=== PATIENT | male | born 1980 | race Caucasian/White ===

== ENCOUNTER 2019-12-10 13:57 | Inpatient (IN) ==
[2019-12-10] MEDS ORDERED: SODIUM CHLORIDE 0.9% 1000ML 1,000 ML IV ONE (14:17)
[2019-12-10] MEDS ORDERED: LORazepam 1 MG/2 ML VIAL IV STA ×2 (14:17→15:57)
--- NOTE | 2019-12-10 14:27 | Emergency Department Note ---
History of Present Illness General Chief Complaint: Seizure Stated Complaint: seizure/fall, forehead abrasion Time Seen by Provider: 12/10/19 14:08 History of Present Illness Provider Complaint: + seizure Description of Episode: + loss of consciousness and + tonic-clonic movement Witnessed: + yes - by bystander Seizure History: + none Place: + work Possible Precipitating Event: + head injury; no fever Associated symptoms: + denies other symptoms and + loss of appetite; no chest pain, no cough, no fever/chills and no shortness of breath HPI Narrative: Patient states he drinks approximately 6 pack of beer a day. He also states he did not eat anything today. He states he did drink a sixpack of beer yesterday. Home Medications Home Medications Medication Instructions Recorded Confirmed Type losartan-hydrochlorothiazide 1 tab PO DAILY 12/10/19 12/10/19 History nortriptyline 75 mg PO HS 12/10/19 12/10/19 History omeprazole 20 mg PO DAILY 12/10/19 12/10/19 History rosuvastatin [Crestor] 10 mg PO DAILY 12/10/19 12/10/19 History Allergies Allergy/AdvReac Type Severity Reaction Status Date / Time No Known Allergies Allergy Unverified 12/10/19 15:32 Past Med/Surg History Medical History (Updated 12/10/19 @ 17:19 by Radha Lopez PA-C) HALEY (generalized anxiety disorder) GERD (gastroesophageal reflux disease) HTN (hypertension) Hyperlipidemia Insomnia Prediabetes Surgical History History of esophagogastroduodenoscopy (EGD) History of rectal surgery Anal fistula surgery Family History Father Diabetes Hypertension Grandmother (Maternal) Myocardial infarction Social History (Updated 12/10/19 @ 17:07 by Radha Lopez PA-C) Smoking Status: Former smoker Do You Dip or Chew Tobacco: No; Tobacco Cessation Education Requested by Patient: No Hx Alcohol Use: Yes Alcohol type: beer Alcohol Intake Frequency Comment: A case of beer per week Hx Substance Use: No Preferred Language: Eritrean Communication Ability: Effective Office Service Coordinator Required: No Beliefs That Will Affect Care: None marital status: Current Living Situation: Spouse current occupational status: employed Other Information That Helps Us Care for You: No Feels Safe at Home: Yes Safety Concerns: Feels Safe At This Time Assistive Devices: None Review of Systems A total of 10 systems reviewed and were otherwise negative Physical Exam Vital Signs: Vital Signs - 24 hr 12/10/19 14:04 12/10/19 14:07 12/10/19 14:16 Temperature 37.2 C Temperature Source Oral Pulse Rate 119 H 119 H 119 H Pulse Rate from Sp O2 Sensor 119 H 119 H Respiratory Rate 22 21 20 Respiratory Effort / Characteristics Non-Labored Sponta neous Respiratory Depth Normal Respiratory Patter n Regular Blood Pressure 150/67 H 150/67 H Blood Pressure Darcy n 107 94 Pulse Oximetry 99 97 99 Oxygen Delivery Me thod Room Air Sepsis Recent Feve r Within 48 Hours No Sepsis New/Unexpla ined Change in Men rupesh Status No Sepsis Action Take n by Nursing No Action Required 12/10/19 14:25 12/10/19 14:30 12/10/19 14:36 Temperature Temperature Source Pulse Rate 119 H 118 H Pulse Rate from Sp O2 Sensor 118 H Respiratory Rate 20 18 Respiratory Effort / Characteristics Respiratory Depth Respiratory Patter n Blood Pressure Blood Pressure Darcy n Pulse Oximetry 99 97 97 Oxygen Delivery Me thod Room Air Room Air Sepsis Recent Feve r Within 48 Hours Sepsis New/Unexpla ined Change in Men rupesh Status Sepsis Action Take n by Nursing 12/10/19 15:00 12/10/19 15:01 12/10/19 16:00 Temperature Temperature Source Pulse Rate 117 H 114 H 113 H Pulse Rate from Sp O2 Sensor 116 H 115 H 114 H Respiratory Rate 20 15 21 Respiratory Effort / Characteristics Respiratory Depth Respiratory Patter n Blood Pressure 152/82 H 149/76 H Blood Pressure Darcy n 105 92 Pulse Oximetry 98 100 99 Oxygen Delivery Me thod Sepsis Recent Feve r Within 48 Hours Sepsis New/Unexpla ined Change in Men rupesh Status Sepsis Action Take n by Nursing Physical Exam: Physical Exam GENERAL: He is oriented to person, place, and time. He appears well-developed and well-nourished. He does not appear distressed. HENT: Exam performed. - Head: Abrasions to the patient's face. - Right Ear: External ear normal. No mastoid tenderness. - Left Ear: External ear normal. No mastoid tenderness. - Mouth/Throat: The oropharynx is clear and moist. No trismus in the jaw. No dental abscesses or uvula swelling. No oropharyngeal exudate or tonsillar abscesses. EYES: Conjunctivae and EOM are normal. Pupils are equal, round, and reactive to light. Right eye exhibits no discharge. Left eye exhibits no discharge. No scleral icterus. NECK: Normal range of motion. Neck supple. No JVD present. No spinous process tenderness present. No carotid bruit present. No rigidity. No tracheal deviation and normal range of motion present. No Brudzinski's sign and no Kernig's sign noted. CV: Tachycardic rate, regular rhythm, normal heart sounds and intact distal pulses. There is no peripheral edema. Palpable radial pulses bue. PULM/CHEST: Effort normal and breath sounds normal. No respiratory distress. No stridor. He has no wheezes. He has no rales. - Chest Wall: He exhibits no tenderness. ABD: The abdomen is soft. Bowel sounds are normal. He has no distension. No mass is present. There is no tenderness. There is no rebound, no guarding, no Elizalde's sign and no tenderness at McBurney's point. Rovsig negative. MUSC/SKEL: Normal range of motion. There is no peripheral edema, tenderness or deformity. LYMPH: No cervical adenopathy. NEURO: He is alert and oriented to person, place, and time. He has normal strength. No cranial nerve deficit or sensory deficit. Coordination and gait normal. GCS eye subscore is 4. GCS verbal subscore is 5. GCS motor subscore is 6. Cerebellar tests wnl. SKIN: Skin is warm and dry. He is diaphoretic. PSYCH: He has a normal mood and affect. Behavior is normal. Judgment and thought content normal. Course Course 1408: The patient was evaluated in room C9. A complete history and physical exam was performed. Patient is diaphoretic and tachycardic on arrival. It is thought that his symptoms could be due to alcohol withdrawal. Labs and imaging will be ordered and the patient will be given 1 mg Ativan in the emergency department to start with. Cardiac monitoring: An order was placed for continuous cardiac monitoring. The monitor shows a rate of 115 with sinus tachycardia rhythm 1602: Vital signs stable. Imaging show no traumatic injury. Magnesium 1.3. Magnesium will replace starting in the emergency department. On reassessment the patient is still tachycardic and is now tremulous. This thought that the patient seizure could be due to his hypomagnesemia and more likely due to alcohol withdrawal. Patient will be given another milligram of Ativan in the emergency department. Discussed with [facility] hospitalist Radha Bernabe who stated to admit to Dr. Dial Administered Medications Chlordiazepoxide HCl (Chlordiazepoxide Hcl 25 Mg Cap) 50 mg PO Q6H MARIOLA; Taper Stop: 12/13/19 19:59 Last Admin: 12/10/19 19:42 Dose: 50 mg Documented by: [id number] Folic Acid (Folic Acid 1 Mg Tab) 1 mg PO QAM MARIOLA Stop: 01/09/20 19:59 Last Admin: 12/10/19 19:42 Dose: 1 mg Documented by: [id number] Potassium Phosphate 30 mmol/ (Sodium Chloride) 510 mls @ 88 mls/hr IV ONE ONE Stop: 12/10/19 23:47 Last Admin: 12/10/19 18:50 Dose: 88 mls/hr Documented by: [id number] Insulin Aspart (Insulin Aspart 100 Units/Ml 3 Ml Pen) 0 units SC ACHS MARIOLA Stop: 01/09/20 20:59 Last Admin: 12/10/19 19:43 Dose: Not Given Documented by: [id number] Cosigned by: [id number] Levetiracetam (Levetiracetam 500 Mg Tab) 500 mg PO Q12H MARIOLA Stop: 01/09/20 19:59 Last Admin: 12/10/19 19:42 Dose: 500 mg Documented by: [id number] Neomycin/Polymyxin/Bacitracin (Neomycin/Polymyx/Bacitr Oint 15 Gm Tube) 1 appln EXT BID MARIOLA Stop: 01/09/20 20:59 Last Admin: 12/10/19 20:51 Dose: 1 appln Documented by: [id number] Nortriptyline HCl (Nortriptyline Hcl 25 Mg Cap) 75 mg PO HS MARIOLA Stop: 01/09/20 20:59 Last Admin: 12/10/19 19:42 Dose: 75 mg Documented by: [id number] Potassium Phosphate (Pot Phosphate Monobasic W/ Sod Tab) 1 tab PO QID MARIOLA Stop: 01/09/20 20:59 Last Admin: 12/10/19 19:42 Dose: 1 tab Documented by: [id number] Thiamine HCl (Thiamine Hcl 100 Mg Tab) 100 mg PO QAM MARIOLA Stop: 01/09/20 19:59 Last Admin: 12/10/19 19:42 Dose: 100 mg Documented by: [id number] Discontinued Medications Diphtheria/Pertussis/Tetanus Vacc (Diphtheria/Tetanus/Pertussis 0.5 Ml Syr/Vial) 0.5 ml IM .ONCE ONE Stop: 12/10/19 16:03 Last Admin: 12/10/19 16:11 Dose: 0.5 ml Documented by: [id number] Sodium Chloride (Nss 1000ml) 1,000 mls @ 999 mls/hr IV .Q1H1M ONE Stop: 12/10/19 15:17 Last Infusion: 12/10/19 15:42 Dose: 0 mls/hr Documented by: [id number] Admin: 12/10/19 14:41 Dose: 999 mls/hr Documented by: [id number] Lorazepam (Ativan) 1 mg in 2 mls @ 2 mls/min IV NOW STA Stop: 12/10/19 14:18 Last Admin: 12/10/19 14:41 Dose: 2 mls/min Documented by: [id number] Magnesium Sulfate/Dextrose (Magnesium Sulfate / D5w) 1 gm in 100 mls @ 100 mls/hr IV Q1H MARIOLA Stop: 12/10/19 16:51 Last Infusion: 12/10/19 19:16 Dose: 0 mls/hr Documented by: [id number] Admin: 12/10/19 16:50 Dose: 100 mls/hr Documented by: [id number] Infusion: 12/10/19 16:46 Dose: 0 mls/hr Documented by: [id number] Admin: 12/10/19 15:42 Dose: 100 mls/hr Documented by: [id number] Lorazepam (Ativan) 1 mg in 2 mls @ 2 mls/min IV NOW STA Stop: 12/10/19 15:58 Last Admin: 12/10/19 16:12 Dose: 2 mls/min Documented by: [id number] Multivitamins 10 ml/ Thiamine HCl 100 mg/ Folic Acid 1 mg/Sodium Chloride 1,011.2 mls @ 500 mls/hr IV .Q2H2M ONE Stop: 12/10/19 18:53 Last Admin: 12/10/19 18:50 Dose: 500 mls/hr Documented by: [id number] Medical Decision Making Laboratory Data Result diagrams: 12/10/19 14:15 12/10/19 14:15 Lab Results 12/10/19 12/10/19 12/10/19 Range/Units 14:15 14:15 14:15 WBC 5.82 (4.8-10.8) K/uL RBC 3.70 L (4.7-6.1) M/uL Hgb 12.6 L (14.0-18.0) g/dL Hct 36.8 L (42-52) % MCV 99.5 (80-100) fL MCH 34.1 H (25-34) pg MCHC 34.2 (32-36) g/dL RDW Std Deviation 49.0 H (36.4-46.3) fL RDW Coeff of Cori 13.6 (11.5-14.5) % Plt Count 134 (130-400) K/uL MPV 10.9 H (7.4-10.4) fL Immature Gran % (Auto) 0.2 % Neut % (Auto) 79.3 % Lymph % (Auto) 8.4 % Dewey % (Auto) 11.3 % Eos % (Auto) 0.5 % Baso % (Auto) 0.3 % Neut # (Auto) 4.61 (1.4-6.5) K/uL Lymph # (Auto) 0.49 L (1.2-3.4) K/uL Dewey # (Auto) 0.66 H (0.11-0.59) K/uL Eos # (Auto) 0.03 (0-0.5) K/uL Baso # (Auto) 0.02 (0-0.2) K/uL Immature Gran # (Auto) 0.01 (0.00-0.02) K/uL Sodium 138 (136-145) mmol/L Potassium 3.7 (3.5-5.1) mmol/L Chloride 101 (98-107) mmol/L Carbon Dioxide 26 (21-32) mmol/L Anion Gap 11.0 (3-11) BUN 6 L (7-18) mg/dl Creatinine 1.07 (0.6-1.4) mg/dl Est Cr Clr Drug Dosing 113.7 ml/min Est GFR ( Amer) 100.8 Est GFR (Non-Af Amer) 87.0 BUN/Creatinine Ratio 5.4 L (10-20) Glucose 249 H (70-99) mg/dl Calcium 9.6 (8.5-10.1) mg/dl Phosphorus (2.5-4.9) mg/dl Magnesium 1.3 L (1.8-2.4) mg/dl Total Bilirubin 0.6 (0.2-1) mg/dl Direct Bilirubin 0.2 (0-0.2) mg/dl AST 267 H (15-37) U/L ALT 227 H (12-78) U/L Alkaline Phosphatase 113 (45-117) U/L Total Creatine Kinase (39-308) U/L Total Protein 8.7 H (6.4-8.2) gm/dl Albumin 4.1 (3.4-5.0) gm/dl Lipase 339 (73-393) U/L Prolactin 13.85 ng/ml Ethyl Alcohol mg/dL (0-3) mg/dl 12/10/19 12/10/19 Range/Units 14:15 14:29 WBC (4.8-10.8) K/uL RBC (4.7-6.1) M/uL Hgb (14.0-18.0) g/dL Hct (42-52) % MCV (80-100) fL MCH (25-34) pg MCHC (32-36) g/dL RDW Std Deviation (36.4-46.3) fL RDW Coeff of Cori (11.5-14.5) % Plt Count (130-400) K/uL MPV (7.4-10.4) fL Immature Gran % (Auto) % Neut % (Auto) % Lymph % (Auto) % Dewey % (Auto) % Eos % (Auto) % Baso % (Auto) % Neut # (Auto) (1.4-6.5) K/uL Lymph # (Auto) (1.2-3.4) K/uL Dewey # (Auto) (0.11-0.59) K/uL Eos # (Auto) (0-0.5) K/uL Baso # (Auto) (0-0.2) K/uL Immature Gran # (Auto) (0.00-0.02) K/uL Sodium (136-145) mmol/L Potassium (3.5-5.1) mmol/L Chloride (98-107) mmol/L Carbon Dioxide (21-32) mmol/L Anion Gap (3-11) BUN (7-18) mg/dl Creatinine (0.6-1.4) mg/dl Est Cr Clr Drug Dosing ml/min Est GFR ( Amer) Est GFR (Non-Af Amer) BUN/Creatinine Ratio (10-20) Glucose (70-99) mg/dl Calcium (8.5-10.1) mg/dl Phosphorus 0.8 L* (2.5-4.9) mg/dl Magnesium (1.8-2.4) mg/dl Total Bilirubin (0.2-1) mg/dl Direct Bilirubin (0-0.2) mg/dl AST (15-37) U/L ALT (12-78) U/L Alkaline Phosphatase (45-117) U/L Total Creatine Kinase 261 (39-308) U/L Total Protein (6.4-8.2) gm/dl Albumin (3.4-5.0) gm/dl Lipase (73-393) U/L Prolactin ng/ml Ethyl Alcohol mg/dL < 3.0 (0-3) mg/dl Imaging Data Radiologist's Impression: CT SCAN OF THE BRAIN WITHOUT IV CONTRAST CLINICAL HISTORY: Seizure. COMPARISON STUDY: No priors. TECHNIQUE: Unenhanced axial CT scan of the brain is performed from the vertex to the skull base. A dose lowering technique was utilized adhering to the principles of ALARA. CT DOSE: 988.73 mGycm FINDINGS: Brain parenchyma: The brain parenchyma is normal in appearance. There is no hemorrhage, mass effect, or evidence of acute territorial ischemia by CT criteria. Rocha-white matter differentiation is preserved. No extra-axial fluid collection is seen. Ventricles, sulci, cisterns: Normal in configuration. Intracranial vasculature: The visualized intracranial vasculature at the skull base is normal in appearance. Calvarium: There is no depressed calvarial fracture. Soft tissues: There is a left frontal scalp hematoma. Sinuses and mastoids: The visualized paranasal sinuses are clear. The mastoid air cells are well pneumatized. Orbits: The bony orbits are grossly intact. IMPRESSION: 1. There is no hemorrhage, mass effect, or evidence of acute territorial ischemia by CT criteria. 2. Left frontal scalp hematoma. 3. No depressed calvarial fracture is identified. ACT 112: Negative or not required by law. Electronically signed by: Gibran Aguirre M.D. 12/10/2019 3:41 PM Dictated: 12/10/197 Transcribed: 12/10/191536 CT DOSE: 542.52 mGycm CLINICAL HISTORY: Facial pain status post trauma SEIZURE COMPARISON STUDY: No previous studies for comparison. TECHNIQUE: Helical images were acquired in the transverse plane. The study was reviewed and analyzed on the independent 3-D workstation. A dose lowering technique was utilized adhering to the principles of ALARA. The pterygoid plates appear intact. The zygomatic arches appear intact. The globes appear intact. There is no evidence of orbital emphysema. The orbital huber and floor appear intact. The mandibular condyles appear intact. There is a minimal nasal bone deformity likely old There is left frontal scalp edema. IMPRESSION: 1. No acute facial fractures identified 2. Left frontal scalp swelling. ACT 112: Negative or not required by law. Electronically signed by: Pj Blake M.D. 12/10/2019 3:40 PM Dictated: 12/10/191536 Transcribed: 12/10/191536 XR chest 1V portable HISTORY: 39 years-old Male seizure acute seizure COMPARISON: None TECHNIQUE: Portable AP view of the chest FINDINGS: Cardiomediastinal and hilar silhouettes are within normal limits. No pneumothorax, pleural effusion, airspace consolidation or overt pulmonary edema. Bones of the chest appear grossly intact. IMPRESSION: No acute process. ACT 112: Negative or not required by law. The above report was generated using voice recognition software. It may contain grammatical, syntax or spelling errors. Electronically signed by: Neville Lala M.D. 12/10/2019 3:00 PM Dictated: 12/10/19 145 Transcribed: 12/10/191458 CT cervical spine wo con CT DOSE: 473.94 mGycm CLINICAL HISTORY: 39 years-old Male with seizure. Acute seizure. COMPARISON: CT head and maxillofacial studies of same day TECHNIQUE: Multiple axial CT images of the cervical spine were obtained without contrast. A dose lowering technique was utilized adhering to the principles of ALARA. FINDINGS: Straightening of the normal cervical lordosis. Mild disc space narrowing with spondylitic spurring at C5-C6. Minimal multilevel facet arthrosis. No acute fracture or subluxation. Lung apices are clear without pneumothorax. No prevertebral soft tissue swelling. Hypodense 4 mm left thyroid nodule. IMPRESSION: No acute fracture or subluxation. ACT 112: Negative or not required by law. The above report was generated using voice recognition software. It may contain grammatical, syntax or spelling errors. Electronically signed by: Neville Lala M.D. 12/10/2019 3:40 PM Dictated: 12/10/191535 Transcribed: 12/10/191535 ECG Data Indication: other (Seizure) Rate (beats per minute): 117 Rhythm: sinus tachycardia Findings: no nonspecific-ST abn and no ST elevation Additional Comments: [place] QRS and QTc intervals within normal limits. [facility] Narrative 1408: The patient was evaluated in room C9. A complete history and physical exam was performed. Patient is diaphoretic and tachycardic on arrival. It is thought that his symptoms could be due to alcohol withdrawal. Labs and imaging will be ordered and the patient will be given 1 mg Ativan in the emergency department to start with. Cardiac monitoring: An order was placed for continuous cardiac monitoring. The monitor shows a rate of 115 with sinus tachycardia rhythm 1602: Vital signs stable. Imaging show no traumatic injury. Magnesium 1.3. Magnesium will replace starting in the emergency department. On reassessment the patient is still tachycardic and is now tremulous. This thought that the patient seizure could be due to his hypomagnesemia and more likely due to al cohol withdrawal. Patient will be given another milligram of Ativan in the emergency department. Discussed with [facility] hospitalist Radha Bernabe who stated to admit to Dr. Dial Impression & Plan Seizure, DTs (delirium tremens), Hypomagnesemia Discharge Plan Visit Data Chief Complaint: Seizure Stated Complaint: seizure/fall, forehead abrasion ED Provider: Duc Kaufman Discharge Problem: Seizure, DTs (delirium tremens), Hypomagnesemia Patient Disposition: Admitted As Inpatient Discharge Instructions Interventions: ED Discharge Assessment Last Done: 12/10/19 18:00
[2019-12-10 14:42] LABS: Albumin Level 4.1 gm/dl (3.4-5.0); BUN Creatinine Ratio 5.4 (10-20); Bilirubin Direct 0.2 mg/dl (0-0.2); Calcium 9.6 mg/dl (8.5-10.1); Creatinine Clr Calc Pharmacy 113.7 ml/min; Est GFR (African American) 100.8; Magnesium 1.3 mg/dl (1.8-2.4); Potassium 3.7 mmol/L (3.5-5.1)
[2019-12-10 14:45] LABS: Basophils # (auto) 0.02 K/uL (0-0.2); Basophils % (auto) 0.3 %; Bilirubin,Total 0.6 mg/dl (0.2-1); Eosinophils # (auto) 0.03 K/uL (0-0.5); Eosinophils % (auto) 0.5 %; Hematocrit (blood only) 36.8 % (42-52); Hemoglobin 12.6 g/dL (14.0-18.0); Immature Granulocytes # (auto) 0.01 K/uL (0.00-0.02); Immature Granulocytes % (auto) 0.2 %; Lymphocytes # (auto) 0.49 K/uL (1.2-3.4); Lymphocytes % (auto) 8.4 %; Mean Corpuscular Hemoglobin 34.1 pg (25-34); Mean Corpuscular Hgb Conc 34.2 g/dL (32-36); Mean Corpuscular Volume 99.5 fL (80-100); Mean Platelet Volume 10.9 fL (7.4-10.4); Monocytes # (auto) 0.66 K/uL (0.11-0.59); Monocytes % (auto) 11.3 %; Neutrophils # (auto) 4.61 K/uL (1.4-6.5); Neutrophils % (auto) 79.3 %; Platelet Count 134 K/uL (130-400); RDW Coefficient of Variation 13.6 % (11.5-14.5); Total Protein 8.7 gm/dl (6.4-8.2); White Blood Count 5.82 K/uL (4.8-10.8)
--- NOTE | 2019-12-10 15:02 | XRay Report ---
XR chest 1V portable HISTORY: 39 years-old Male seizure acute seizure COMPARISON: None TECHNIQUE: Portable AP view of the chest FINDINGS: Cardiomediastinal and hilar silhouettes are within normal limits. No pneumothorax, pleural effusion, airspace consolidation or overt pulmonary edema. Bones of the chest appear grossly intact. IMPRESSION: No acute process. ACT 112: Negative or not required by law. The above report was generated using voice recognition software. It may contain grammatical, syntax o r spelling errors. Electronically signed by: Neville Lala M.D. 12/10/2019 3:00 PM
[2019-12-10] MEDS: MAGNESIUM SULFATE / D5W 1 GM/100 ML BAG IV SCH ×2 (15:42→16:50)
--- NOTE | 2019-12-10 15:42 | CT Scan Report ---
CT facial bones wo con CT DOSE: 542.52 mGycm CLINICAL HISTORY: Facial pain status post trauma SEIZURE COMPARISON STUDY: No previous studies for comparison. TECHNIQUE: Helical images were acquired in the transverse plane. The study was reviewed and analyzed on the independent 3-D workstation. A dose lowering technique was utilized adhering to the principle s of ALARA. The pterygoid plates appear intact. The zygomatic arches appear intact. The globes appear intact. There is no evidence of orbital emphysema. The orbital huber and floor appear intact. The mandibular condyles appear intact. There is a minimal nasal bone deformity likely old There is left frontal scalp edema. IMPRESSION: 1. No acute facial fractures identified 2. Left frontal scalp swelling. ACT 112: Negative or not required by law. Electronically signed by: Pj Blake M.D. 12/10/2019 3:40 PM
--- NOTE | 2019-12-10 15:42 | CT Scan Report ---
CT cervical spine wo con CT DOSE: 473.94 mGycm CLINICAL HISTORY: 39 years-old Male with seizure. Acute seizure. COMPARISON: CT head and maxillofacial studies of same day TECHNIQUE: Multiple axial CT images of the cervical spine were obtained without contrast. A dose low ering technique was utilized adhering to the principles of ALARA. FINDINGS: Straightening of the normal cervical lordosis. Mild disc space narrowing with spondylitic spurring at C5-C6. Minimal multilevel facet arthrosis. No acute fracture or subluxation. Lung apices are clear w ithout pneumothorax. No prevertebral soft tissue swelling. Hypodense 4 mm left thyroid nodule. IMPRESSION: No acute fracture or subluxation. ACT 112: Negative or not required by law. The above report was generated using voice recognition software. It may contain grammatical, syntax o r spelling errors. Electronically signed by: Neville Lala M.D. 12/10/2019 3:40 PM
--- NOTE | 2019-12-10 15:43 | CT Scan Report ---
CT SCAN OF THE BRAIN WITHOUT IV CONTRAST CLINICAL HISTORY: Seizure. COMPARISON STUDY: No priors. TECHNIQUE: Unenhanced axial CT scan of the brain is performed from the vertex to the skull base. A d ose lowering technique was utilized adhering to the principles of ALARA. CT DOSE: 988.73 mGycm FINDINGS: Brain parenchyma: The brain parenchyma is normal in appearance. There is no hemorrhage, mass effect, or evidence of acute territorial ischemia by CT criteria. Rocha-white matter differentiation is preser alejandrina. No extra-axial fluid collection is seen. Ventricles, sulci, cisterns: Normal in configuration. Intracranial vasculature: The visualized intracranial vasculature at the skull base is normal in appe arance. Calvarium: There is no depressed calvarial fracture. Soft tissues: There is a left frontal scalp hematoma. Sinuses and mastoids: The visualized paranasal sinuses are clear. The mastoid air cells are well pneu matized. Orbits: The bony orbits are grossly intact. IMPRESSION: 1. There is no hemorrhage, mass effect, or evidence of acute territorial ischemia by CT criteria. 2. Left frontal scalp hematoma. 3. No depressed calvarial fracture is identified. ACT 112: Negative or not required by law. Electronically signed by: Gibran Aguirre M.D. 12/10/2019 3:41 PM
[2019-12-10] MEDS ORDERED: DIPHTHERIA/TETANUS/PERTUSSIS 0.5 ML SYR/VIAL IM ONE (16:02)
[2019-12-10] MEDS ORDERED: MULTI-VITAMIN INFUSION 10 ML, THIAMINE HCL 100 MG, FOLIC ACID 1 MG in SODIUM CHLORIDE 0... IV ONE (16:52)
--- NOTE | 2019-12-10 16:59 | History & Physical Report ---
Date of Service December 10, 2019 Assessment & Plan (1) Seizure-like activity: This is a 39-year-old male who has significant past medical history of HTN, HLD, GERD, prediabetes who presents to ED after sustaining seizure-like activity prior to arrival. Seizure like activity possibly 2/2 to alcohol withdrawal, electrolyte abnormality or other organic etiology. No prior hx of seizure in past. admit to PCU start keppra 500mg bid obtain EEG consult neurology tx for alcohol withdrawal as below (2) Alcohol withdrawal: encourage alcohol abstinence Give Banana Bag x 1 daily thiamine and folic acid Librum taper, PRN lorazepam for active withdrawal seizure precautions (3) Hypomagnesemia: received 2g mag sulfate in ED repeat mag at 1800 and replete accordingly to achieve mag > 2.0 (4) Elevated LFTs: likely in setting of ETOH use, prior elevated lfts in outpt lab last US abd 04/2017 revealed mild hepatomegaly with diffuse increased echogenicity of liver hold statin, obtain US of abd RUQ (5) Prediabetes: Pt with hyperglycemia, BSG 249 Last A1c 6.2 12/12/2018 Obtain A1c in a.m. Accu-Cheks, NovoLog per protocol Consistently remains greater than 180 BSG add long-acting insulin (6) HTN (hypertension): BP elevated in setting of withdrawal continue losartan but hold HCTZ monitor (7) Hyperlipidemia: hold statin in setting of elevated LFTS Full Code Disposition: admit to PCU Follow up: PCP Dr. Langford upon discharge Pt was seen and examined in collaboration with Dr. Dial, please see addendum History of Present Illness Chief Complaint: Seizure-like activity prior to arrival. Primary Care Provider: Dano Langford DO This is a 39-year-old male who has significant past medical history of HTN, HLD, GERD, prediabetes who presents to ED after sustaining seizure-like activity prior to arrival. Of note he has no prior history of seizure disorder. is at bedside. Patient was at work whenever he fell to the floor and hit his head. Numerous witnesses per patient state they observed seizure-like activity lasting a few minutes. He does admit to biting his tongue but denies any loss of bowel or bladder control. He states he did not eat or drink anything mostly all day, and when he woke up this morning generally did not feel well and lightheaded. He denies any recent illness, fever, chills, sweats, dizziness, chest pain, shortness of breath, cough, emesis, abdominal pain, dysuria, increased urgency or frequency with urination. He does admit to having diaphoresis, palpitations and tremors. He does admit to drinking alcohol daily. He admits to drinking approximately a case a week of light beer. He does note if he goes a few days without beer he does tend to get tremors and ill feeling, but has never had seizure activity. In ED patient was hypertensive and tachycardic, but otherwise hemodynamically stable. Lab work notable for H&H 12.6 and 36.8, WBC 5.82, platelet 134, BUN 6, creatinine 1.07, glucose 249, mag 1.3, AST 267, ALT 227, prolactin 13.85, ethyl alcohol less than 3. He did suffer an abrasion to his forehead and did receive a tetanus vaccination. Head and face CT were unremarkable, but did reveal left frontal scalp hematoma. CXR and C spine CT were without acute process. He did receive IV ativan, IVF and 2g magnesium supplementation while in ED. Allergies Allergy/AdvReac Type Severity Reaction Status Date / Time No Known Allergies Allergy Unverified 12/10/19 15:32 Home Medications Home Medications Medication Instructions Recorded Confirmed Type losartan-hydrochlorothiazide 1 tab PO DAILY 12/10/19 12/10/19 History nortriptyline 75 mg PO HS 12/10/19 12/10/19 History omeprazole 20 mg PO DAILY 12/10/19 12/10/19 History rosuvastatin [Crestor] 10 mg PO DAILY 12/10/19 12/10/19 History Past Med/Surg History Medical History (Updated 12/10/19 @ 17:19 by Radha Lopez PA-C) HALEY (generalized anxiety disorder) GERD (gastroesophageal reflux disease) HTN (hypertension) Hyperlipidemia Insomnia Prediabetes Surgical History History of esophagogastroduodenoscopy (EGD) History of rectal surgery Anal fistula surgery Family History Father Diabetes Hypertension Grandmother (Maternal) Myocardial infarction Social History (Updated 12/10/19 @ 17:07 by Radha Lopez PA-C) Smoking Status: Former smoker Hx Alcohol Use: Yes Alcohol type: beer Alcohol Intake Frequency Comment: A case of beer per week Hx Substance Use: No Preferred Language: [place] marital status: Current Living Situation: Spouse current occupational status: employed Feels Safe at Home: Yes Review of Systems Review of Systems: All systems reviewed & are unremarkable except as noted in HPI & below Physical Exam Physical Exam: Constitutional: WD/WN, male, diaphoretic, vitals as above, NAD, sitting up in bed, pleasant, conversing easily Head: Normocephalic, abrasion to left and lateral forehead with erythematous wound bed, no drainage Eyes: PERRL, conjunctivae normal, anicteric sclerae ENMT: external ear and nose normal, oropharynx normal Neck: trachea midline, no thyromegaly normal visual inspection Respiratory: normal respiratory effort, lungs clear to auscultation, no wheeze, rales, rhonchi. Normal insp/exp effort, no accessory muscle use Cardiovascular: Tachycardic rate, regular rhythm, no murmur, no edema Vessels: no JVD or carotid bruit Chest: normal inspection of chest Abdomen: Protuberant abdomen, normal bowel sounds, firm, nontender, no hepatosplenomegaly Musculoskeletal: no cyanosis or clubbing, extremities motor strength 5/5 Skin: no rashes, warm and dry normal turgor Neurologic: Tremulous, no asterixis, PERRL, EOMI, accommodation nl, no face palsy, no dysarthria CN's II-XI intact bilaterally and moves all extremities Psychiatric: A+Ox3, euthymic affect Lymphatic: no cervical or axillary lymphadenopathy : deferred Results & Data Results & Data ([facility]) Vital Signs (Past 12 Hours) Vital Signs Temp Pulse Resp BP Pulse Ox 12/10/19 15:01 114 H 15 100 12/10/19 15:00 117 H 20 152/82 H 98 12/10/19 14:36 97 12/10/19 14:30 118 H 18 97 12/10/19 14:25 119 H 20 99 12/10/19 14:16 37.2 C 119 H 20 150/67 H 99 12/10/19 14:07 119 H 21 150/67 H 97 12/10/19 14:04 119 H 22 99 Laboratory Results Short CBC 12/10/19 Range/Units 14:15 WBC 5.82 (4.8-10.8) K/uL Hgb 12.6 L (14.0-18.0) g/dL Hct 36.8 L (42-52) % Plt Count 134 (130-400) K/uL BMP 12/10/19 14:15 Sodium 138 Potassium 3.7 Chloride 101 Carbon Dioxide 26 BUN 6 L Creatinine 1.07 Glucose 249 H Calcium 9.6 Liver Function 12/10/19 Range/Units 14:15 Total Bilirubin 0.6 (0.2-1) mg/dl Direct Bilirubin 0.2 (0-0.2) mg/dl AST 267 H (15-37) U/L ALT 227 H (12-78) U/L Alkaline Phosphatase 113 (45-117) U/L Albumin 4.1 (3.4-5.0) gm/dl Diagnostic Findings Head CT: IMPRESSION: 1. There is no hemorrhage, mass effect, or evidence of acute territorial ischemia by CT criteria. 2. Left frontal scalp hematoma. 3. No depressed calvarial fracture is identified. Face CT: IMPRESSION: 1. No acute facial fractures identified 2. Left frontal scalp swelling. CXR: IMPRESSION: No acute process. C spine CT: IMPRESSION: No acute fracture or subluxation. Medications Administered Discontinued Medications Diphtheria/Pertussis/Tetanus Vacc (Diphtheria/Tetanus/Pertussis 0.5 Ml Syr/Vial) 0.5 ml IM .ONCE ONE Stop: 12/10/19 16:03 Last Admin: 12/10/19 16:11 Dose: 0.5 ml Documented by: [id number] Sodium Chloride (Nss 1000ml) 1,000 mls @ 999 mls/hr IV .Q1H1M ONE Stop: 12/10/19 15:17 Last Infusion: 12/10/19 15:42 Dose: 0 mls/hr Documented by: [id number] Admin: 12/10/19 14:41 Dose: 999 mls/hr Documented by: [id number] Lorazepam (Ativan) 1 mg in 2 mls @ 2 mls/min IV NOW STA Stop: 12/10/19 14:18 Last Admin: 12/10/19 14:41 Dose: 2 mls/min Documented by: [id number] Magnesium Sulfate/Dextrose (Magnesium Sulfate / D5w) 1 gm in 100 mls @ 100 mls/hr IV Q1H MARIOLA Stop: 12/10/19 16:51 Last Admin: 12/10/19 16:50 Dose: 100 mls/hr Documented by: [id number] Infusion: 12/10/19 16:46 Dose: 0 mls/hr Documented by: [id number] Admin: 12/10/19 15:42 Dose: 100 mls/hr Documented by: [id number] Lorazepam (Ativan) 1 mg in 2 mls @ 2 mls/min IV NOW STA Stop: 12/10/19 15:58 Last Admin: 12/10/19 16:12 Dose: 2 mls/min Documented by: [id number] ECG Rate (beats per minute): 117 Rhythm: sinus tachycardia Code Status & VTE Plan Code Status Full Code VTE Prophylaxis Plan VTE Prophylaxis will be ordered: Yes
[2019-12-10 17:33] LABS: Phosphorus 0.8 mg/dl (2.5-4.9)
--- NOTE | 2019-12-10 17:35 | Electrocardiogram Report ---
Test Reason : Blood Pressure : / mmHG Vent. Rate : 117 BPM Atrial Rate : 117 BPM P-R Int : 162 ms QRS Dur : 084 ms QT Int : 320 ms P-R-T Axes : 047 054 040 degrees QTc Int : 446 ms Sinus tachycardia Otherwise normal ECG No previous ECGs available Confirmed by Lavelle Mclean ([id number]) on 12/10/2019 5:34:42 PM Referred By: REFERRED SELF Confirmed By:Krishan Mclean
[2019-12-10] MEDS ORDERED: POTASSIUM PHOS 3 MMOL/1 ML INFUSION IV STA (17:40)
[2019-12-10] MEDS ORDERED: POTASSIUM PHOSPHATE 30 MMOL in SODIUM CHLORIDE 0.9% 500 ML IV ONE (18:00)
[2019-12-10] MEDS ORDERED: CARBOHYDRATES FOR HYPOGLYCEMIA PO PRN (18:49)
[2019-12-10] MEDS ORDERED: chlordiazePOXIDE ALCOHOL WITHDRAWL 50MG PO STA (18:49)
[2019-12-10] MEDS ORDERED: ATIVAN IV ALCOHOL WITHDRAWL IV PRN (18:49)
[2019-12-10] MEDS ORDERED: ALUMINUM/MAGNESIUM SUSP 30 ML UDC PO PRN (18:49)
[2019-12-10] MEDS ORDERED: LORazepam 3 MG/6 ML VIAL IV PRN (18:49)
[2019-12-10] MEDS ORDERED: ONDANSETRON INJ 2 MG/ML 2 ML VIAL IV PRN (18:49)
[2019-12-10] MEDS ORDERED: LORazepam 1 MG/2 ML VIAL IV PRN (18:49)
[2019-12-10] MEDS ORDERED: DEXTROSE 50% 50 ML SYRINGE IV PRN (18:49)
[2019-12-10] MEDS ORDERED: LORazepam 2 MG/4 ML VIAL IV PRN (18:49)
[2019-12-10] MEDS ORDERED: GLUCAGON FOR INJ 1 MG VIAL SQ PRN (18:49)
[2019-12-10] MEDS ORDERED: GLUCOSE 10 TABS/TUBE PO PRN (18:49)
[2019-12-10] MEDS ORDERED: GLUCOSE 40% GEL 15 GM TUBE PO PRN (18:49)
[2019-12-10] MEDS ORDERED: POLYETHYLENE (MIRALAX) 17 GM PACK PO PRN (18:49)
[2019-12-10] MEDS ORDERED: MAGNESIUM HYDROXIDE SUSP 30 ML UDC PO PRN (18:49)
[2019-12-10] MEDS: FOLIC ACID 1 MG TAB PO SCH (19:42)
[2019-12-10] MEDS: POT PHOSPHATE MONOBASIC W/ SOD TAB PO SCH (19:42)
[2019-12-10] MEDS: NORTRIPTYLINE HCL 25 MG CAP PO SCH (19:42)
[2019-12-10] MEDS: levETIRAcetam 500 MG TAB PO SCH (19:42)
[2019-12-10] MEDS: chlordiazePOXIDE HCl 25 MG CAP PO SCH (19:42)
[2019-12-10] MEDS: THIAMINE HCL 100 MG TAB PO SCH (19:42)
[2019-12-10] MEDS: INSULIN ASPART 100 UNITS/ML 3 ML PEN SC SCH (19:43)
[2019-12-10] MEDS: NEOMYCIN/POLYMYX/BACITR OINT 15 GM TUBE EXT SCH (20:51)
--- NOTE | 2019-12-10 21:02 | Ultrasound Report ---
ULTRASOUND RIGHT UPPER QUADRANT ABDOMEN CLINICAL HISTORY: Elevated hepatic transaminases. COMPARISON STUDY: No priors. TECHNIQUE: Real-time, grayscale, and color flow sonography of the right upper quadrant of the abdomen was performed. Images are reviewed in the transverse and longitudinal planes. FINDINGS: Liver: The liver is enlarged, measuring 23 cm in length. The liver demonstrates heterogeneously incre ased echotexture consistent with severe back steatosis. Note that this degrades acoustic penetration of the liver. There is no intrahepatic biliary ductal dilatation. The main portal vein is patent. Gallbladder: There is a 7 mm polyp versus sludge ball seen in the gallbladder neck. No shadowing gall stones are identified. There is no gallbladder wall thickening or pericholecystic fluid. A sonographi c Elizalde's sign is reportedly absent. The common bile duct measures up to 0.3 cm in diameter. Pancreas: Visualized portions of the pancreatic head and body are normal in appearance. The splenic v ein is patent. Right kidney: Survey images of the right kidney demonstrate normal size and echotexture. There is no hydronephrosis. Ascites: None. IMPRESSION: 1. Hepatomegaly and severe hepatic steatosis. 2. No shadowing gallstones are identified. 3. There is a 7 mm polyp versus adherent sludge in the region of the gallbladder neck. ACT 112: Negative or not required by law. Electronically signed by: Gibran Aguirre M.D. 12/10/2019 9:00 PM
[2019-12-11 01:04] LABS: Basophils # (auto) 0.01 K/uL (0-0.2); Basophils % (auto) 0.2 %; Eosinophils # (auto) 0.06 K/uL (0-0.5); Hematocrit (blood only) 33.3 % (42-52); Hemoglobin 11.3 g/dL (14.0-18.0); Immature Granulocytes # (auto) 0.02 K/uL (0.00-0.02); Immature Granulocytes % (auto) 0.3 %; Lymphocytes # (auto) 0.71 K/uL (1.2-3.4); Lymphocytes % (auto) 11.5 %; Mean Corpuscular Hemoglobin 33.7 pg (25-34); Mean Corpuscular Hgb Conc 33.9 g/dL (32-36); Mean Corpuscular Volume 99.4 fL (80-100); Mean Platelet Volume 10.5 fL (7.4-10.4); Monocytes # (auto) 0.97 K/uL (0.11-0.59); Monocytes % (auto) 15.7 %; Neutrophils # (auto) 4.42 K/uL (1.4-6.5); Neutrophils % (auto) 71.3 %; Platelet Count 104 K/uL (130-400); RDW Coefficient of Variation 13.5 % (11.5-14.5); RDW Standard Deviation 48.9 fL (36.4-46.3); Red Blood Count 3.35 M/uL (4.7-6.1); White Blood Count 6.19 K/uL (4.8-10.8)
[2019-12-11 01:28] LABS: Albumin Level 3.4 gm/dl (3.4-5.0); BUN Creatinine Ratio 7.9 (10-20); Calcium 8.6 mg/dl (8.5-10.1); Creatinine Clr Calc Pharmacy 160.1 ml/min; Est GFR (African American) 132.5; Est GFR (Non-African American) 114.3; Magnesium 1.8 mg/dl (1.8-2.4); Potassium 3.5 mmol/L (3.5-5.1)
[2019-12-11 01:46] LABS: Albumin Globulin Ratio 0.8 (0.9-2); Bilirubin,Total 0.7 mg/dl (0.2-1); Globulin 4.1 gm/dl (2.5-4.0); Phosphorus 4.1 mg/dl (2.5-4.9); Total Protein 7.5 gm/dl (6.4-8.2)
[2019-12-11] MEDS: chlordiazePOXIDE HCl 25 MG CAP PO SCH ×3 (03:18→13:31)
[2019-12-11 06:17] LABS: Estimated Average Glucose 134 mg/dl; Hemoglobin A1C 6.3 % (4.5-5.6)
--- NOTE | 2019-12-11 07:46 | Hospitalist Progress Note ---
Date of Service December 11, 2019 Assessment & Plan (1) Seizure-like activity: This is a 39-year-old male who has significant past medical history of HTN, HLD, GERD, prediabetes who presents to ED after sustaining seizure-like activity prior to arrival. Seizure like activity possibly 2/2 to alcohol withdrawal, electrolyte abnormality or other organic etiology. No prior hx of seizure in past. admitted to PCU started keppra 500mg bid by admitting provider EEG ordered - unremarkable Neurology consulted - appreciate their input tx for alcohol withdrawal as below (2) Alcohol withdrawal: encourage alcohol abstinence Give Banana Bag x 1 daily thiamine and folic acid Librum taper, PRN lorazepam for active withdrawal seizure precautions (3) Hypomagnesemia: received 2g mag sulfate in ED cont. to monitor and replete as needed (4) Elevated LFTs: likely in setting of ETOH use, prior elevated lfts in outpt lab last US abd 04/2017 revealed mild hepatomegaly with diffuse increased echogenicity of liver hold statin, obtain US of abd RUQ (5) Prediabetes: Pt with hyperglycemia, BSG 249 Last A1c 6.2 12/12/2018 Obtain A1c in a.m. Accu-Cheks, NovoLog per protocol Consistently remains greater than 180 BSG add long-acting insulin (6) HTN (hypertension): BP elevated in setting of withdrawal continue losartan but hold HCTZ monitor (7) Hyperlipidemia: hold statin in setting of elevated LFTS Full Code Disposition: admit to PCU Follow up: PCP Dr. Langford upon discharge Admission and Anticipated Discharge Date Admission Date: December 10, 2019 Subjective Pt is sitting up in bed and stands up several times even when he is advised to remain seated for now. Pt's standing in hallway/ bedside. Pt reports drinking beer on regular basis, no prior hx of seizure, no prior hx of LOC. Currently denies any complaints, asking about returning home. Review of Systems Review of Systems: All systems reviewed & are unremarkable except as noted in HPI & below Constitutional: no fever and no chills Respiratory: no dyspnea Cardiovascular: no chest pain Gastrointestinal: no abdominal pain, no nausea and no vomiting Physical Exam Physical Exam: Constitutional: WD/WN, male, sitting up in bed in NAD Head: Normocephalic, abrasion to left and lateral forehead with erythematous wound bed, no drainage Eyes: PERRL, EOMI, conjunctivae normal, anicteric sclerae ENMT: external ear and nose normal, oropharynx normal Neck: trachea midline, no thyromegaly normal visual inspection Respiratory: normal respiratory effort, lungs clear to auscultation, no wheeze, rales, rhonchi. Normal insp/exp effort, no accessory muscle use Cardiovascular: rrr, no murmur, no edema Vessels: no JVD or carotid bruit Chest: normal inspection of chest Abdomen: normal bowel sounds, nontender, mildly distended Musculoskeletal: no cyanosis or clubbing, extremities motor strength 5/5 Skin: no rashes, warm and dry normal turgor Neurologic: mildly tremulous, no asterixis, PERRL, EOMI, accommodation nl, no face palsy, no dysarthria CN's II-XI intact bilaterally and moves all extremities Psychiatric: A+Ox3, euthymic affect Results & Data Results & Data ([facility]) Vital Signs (Past 12 Hours) Vital Signs Temp Pulse Resp BP Pulse Ox 12/11/19 03:29 36.5 C 84 16 149/87 H 98 12/10/19 23:35 37.2 C 79 18 131/76 97 Laboratory Results 12/11/19 12/11/19 12/11/19 Range/Units 00:55 00:55 00:55 WBC 6.19 (4.8-10.8) K/uL RBC 3.35 L (4.7-6.1) M/uL Hgb 11.3 L (14.0-18.0) g/dL Hct 33.3 L (42-52) % MCV 99.4 (80-100) fL MCH 33.7 (25-34) pg MCHC 33.9 (32-36) g/dL RDW Std Deviation 48.9 H (36.4-46.3) fL RDW Coeff of Cori 13.5 (11.5-14.5) % Plt Count 104 L (130-400) K/uL MPV 10.5 H (7.4-10.4) fL Immature Gran % (Auto) 0.3 % Neut % (Auto) 71.3 % Lymph % (Auto) 11.5 % [place] % (Auto) 15.7 % Eos % (Auto) 1.0 % Baso % (Auto) 0.2 % Neut # (Auto) 4.42 (1.4-6.5) K/uL Lymph # (Auto) 0.71 L (1.2-3.4) K/uL [place] # (Auto) 0.97 H (0.11-0.59) K/uL Eos # (Auto) 0.06 (0-0.5) K/uL Baso # (Auto) 0.01 (0-0.2) K/uL Immature Gran # (Auto) 0.02 (0.00-0.02) K/uL Sodium 139 (136-145) mmol/L Potassium 3.5 (3.5-5.1) mmol/L Chloride 105 (98-107) mmol/L Carbon Dioxide 27 (21-32) mmol/L Anion Gap 6.0 (3-11) BUN 6 L (7-18) mg/dl Creatinine 0.77 D (0.6-1.4) mg/dl Est Cr Clr Drug Dosing 160.1 ml/min Est GFR ( Amer) 132.5 Est GFR (Non-Af Amer) 114.3 BUN/Creatinine Ratio 7.9 L (10-20) Glucose 117 H (70-99) mg/dl POC Glucose (70-99) mg/dl Estimat Average Glucose 134 mg/dl Hemoglobin A1c 6.3 H (4.5-5.6) % Calcium 8.6 (8.5-10.1) mg/dl Phosphorus 4.1 D (2.5-4.9) mg/dl Magnesium 1.8 (1.8-2.4) mg/dl Total Bilirubin 0.7 (0.2-1) mg/dl Direct Bilirubin (0-0.2) mg/dl AST 195 H (15-37) U/L ALT 178 H (12-78) U/L Alkaline Phosphatase 87 (45-117) U/L Total Creatine Kinase (39-308) U/L Total Protein 7.5 (6.4-8.2) gm/dl Albumin 3.4 (3.4-5.0) gm/dl Globulin 4.1 H (2.5-4.0) gm/dl Albumin/Globulin Ratio 0.8 L (0.9-2) Lipase (73-393) U/L Prolactin ng/ml Ethyl Alcohol mg/dL (0-3) mg/dl 10/06/20 10/06/20 10/06/20 Range/Units 19:40 19:13 14:29 WBC (4.8-10.8) K/uL RBC (4.7-6.1) M/uL Hgb (14.0-18.0) g/dL Hct (42-52) % MCV (80-100) fL MCH (25-34) pg MCHC (32-36) g/dL RDW Std Deviation (36.4-46.3) fL RDW Coeff of Cori (11.5-14.5) % Plt Count (130-400) K/uL MPV (7.4-10.4) fL Immature Gran % (Auto) % Neut % (Auto) % Lymph % (Auto) % [place] % (Auto) % Eos % (Auto) % Baso % (Auto) % Neut # (Auto) (1.4-6.5) K/uL Lymph # (Auto) (1.2-3.4) K/uL [place] # (Auto) (0.11-0.59) K/uL Eos # (Auto) (0-0.5) K/uL Baso # (Auto) (0-0.2) K/uL Immature Gran # (Auto) (0.00-0.02) K/uL Sodium (136-145) mmol/L Potassium (3.5-5.1) mmol/L Chloride (98-107) mmol/L Carbon Dioxide (21-32) mmol/L Anion Gap (3-11) BUN (7-18) mg/dl Creatinine (0.6-1.4) mg/dl Est Cr Clr Drug Dosing ml/min Est GFR ( Amer) Est GFR (Non-Af Amer) BUN/Creatinine Ratio (10-20) Glucose (70-99) mg/dl POC Glucose 103 H (70-99) mg/dl Estimat Average Glucose mg/dl Hemoglobin A1c (4.5-5.6) % Calcium (8.5-10.1) mg/dl Phosphorus (2.5-4.9) mg/dl Magnesium 2.0 (1.8-2.4) mg/dl Total Bilirubin (0.2-1) mg/dl Direct Bilirubin (0-0.2) mg/dl AST (15-37) U/L ALT (12-78) U/L Alkaline Phosphatase (45-117) U/L Total Creatine Kinase (39-308) U/L Total Protein (6.4-8.2) gm/dl Albumin (3.4-5.0) gm/dl Globulin (2.5-4.0) gm/dl Albumin/Globulin Ratio (0.9-2) Lipase (73-393) U/L Prolactin ng/ml Ethyl Alcohol mg/dL < 3.0 (0-3) mg/dl 12/10/19 12/10/19 12/10/19 Range/Units 14:15 14:15 14:15 WBC 5.82 (4.8-10.8) K/uL RBC 3.70 L (4.7-6.1) M/uL Hgb 12.6 L (14.0-18.0) g/dL Hct 36.8 L (42-52) % MCV 99.5 (80-100) fL MCH 34.1 H (25-34) pg MCHC 34.2 (32-36) g/dL RDW Std Deviation 49.0 H (36.4-46.3) fL RDW Coeff of Cori 13.6 (11.5-14.5) % Plt Count 134 (130-400) K/uL MPV 10.9 H (7.4-10.4) fL Immature Gran % (Auto) 0.2 % Neut % (Auto) 79.3 % Lymph % (Auto) 8.4 % [place] % (Auto) 11.3 % Eos % (Auto) 0.5 % Baso % (Auto) 0.3 % Neut # (Auto) 4.61 (1.4-6.5) K/uL Lymph # (Auto) 0.49 L (1.2-3.4) K/uL [place] # (Auto) 0.66 H (0.11-0.59) K/uL Eos # (Auto) 0.03 (0-0.5) K/uL Baso # (Auto) 0.02 (0-0.2) K/uL Immature Gran # (Auto) 0.01 (0.00-0.02) K/uL Sodium (136-145) mmol/L Potassium (3.5-5.1) mmol/L Chloride (98-107) mmol/L Carbon Dioxide (21-32) mmol/L Anion Gap (3-11) BUN (7-18) mg/dl Creatinine (0.6-1.4) mg/dl Est Cr Clr Drug Dosing ml/min Est GFR ( Amer) Est GFR (Non-Af Amer) BUN/Creatinine Ratio (10-20) Glucose (70-99) mg/dl POC Glucose (70-99) mg/dl Estimat Average Glucose mg/dl Hemoglobin A1c (4.5-5.6) % Calcium (8.5-10.1) mg/dl Phosphorus 0.8 L* (2.5-4.9) mg/dl Magnesium (1.8-2.4) mg/dl Total Bilirubin (0.2-1) mg/dl Direct Bilirubin (0-0.2) mg/dl AST (15-37) U/L ALT (12-78) U/L Alkaline Phosphatase (45-117) U/L Total Creatine Kinase 261 (39-308) U/L Total Protein (6.4-8.2) gm/dl Albumin (3.4-5.0) gm/dl Globulin (2.5-4.0) gm/dl Albumin/Globulin Ratio (0.9-2) Lipase (73-393) U/L Prolactin 13.85 ng/ml Ethyl Alcohol mg/dL (0-3) mg/dl 12/10/19 Range/Units 14:15 WBC (4.8-10.8) K/uL RBC (4.7-6.1) M/uL Hgb (14.0-18.0) g/dL Hct (42-52) % MCV (80-100) fL MCH (25-34) pg MCHC (32-36) g/dL RDW Std Deviation (36.4-46.3) fL RDW Coeff of Cori (11.5-14.5) % Plt Count (130-400) K/uL MPV (7.4-10.4) fL Immature Gran % (Auto) % Neut % (Auto) % Lymph % (Auto) % [place] % (Auto) % Eos % (Auto) % Baso % (Auto) % Neut # (Auto) (1.4-6.5) K/uL Lymph # (Auto) (1.2-3.4) K/uL [place] # (Auto) (0.11-0.59) K/uL Eos # (Auto) (0-0.5) K/uL Baso # (Auto) (0-0.2) K/uL Immature Gran # (Auto) (0.00-0.02) K/uL Sodium 138 (136-145) mmol/L Potassium 3.7 (3.5-5.1) mmol/L Chloride 101 (98-107) mmol/L Carbon Dioxide 26 (21-32) mmol/L Anion Gap 11.0 (3-11) BUN 6 L (7-18) mg/dl Creatinine 1.07 (0.6-1.4) mg/dl Est Cr Clr Drug Dosing 113.7 ml/min Est GFR ( Amer) 100.8 Est GFR (Non-Af Amer) 87.0 BUN/Creatinine Ratio 5.4 L (10-20) Glucose 249 H (70-99) mg/dl POC Glucose (70-99) mg/dl Estimat Average Glucose mg/dl Hemoglobin A1c (4.5-5.6) % Calcium 9.6 (8.5-10.1) mg/dl Phosphorus (2.5-4.9) mg/dl Magnesium 1.3 L (1.8-2.4) mg/dl Total Bilirubin 0.6 (0.2-1) mg/dl Direct Bilirubin 0.2 (0-0.2) mg/dl AST 267 H (15-37) U/L ALT 227 H (12-78) U/L Alkaline Phosphatase 113 (45-117) U/L Total Creatine Kinase (39-308) U/L Total Protein 8.7 H (6.4-8.2) gm/dl Albumin 4.1 (3.4-5.0) gm/dl Globulin (2.5-4.0) gm/dl Albumin/Globulin Ratio (0.9-2) Lipase 339 (73-393) U/L Prolactin ng/ml Ethyl Alcohol mg/dL (0-3) mg/dl Medications Administered Current Inpatient Medications Al Hydrox/Mg Hydrox/Simethicone (Aluminum/Magnesium Susp 30 Ml Udc) 15 ml PO Q4H PRN PRN Reason: Dyspepsia Stop: 01/09/20 18:48 Chlordiazepoxide HCl (Chlordiazepoxide Hcl 25 Mg Cap) 50 mg PO Q6H [facility]; Taper Stop: 12/13/19 19:59 Last Admin: 12/11/19 03:18 Dose: 50 mg Documented by: Chlordiazepoxide HCl (Chlordiazepoxide Hcl 10 Mg Cap) 10 mg PO Q12H [facility] Stop: 12/14/19 08:01 Dextrose (Dextrose 50% 50 Ml Syringe) 25 - 50 ml IV UD PRN; Protocol PRN Reason: Hypoglycemia Protocol Stop: 01/09/20 18:48 Folic Acid (Folic Acid 1 Mg Tab) 1 mg PO QAM [facility] Stop: 01/09/20 19:59 Last Admin: 12/10/19 19:42 Dose: 1 mg Documented by: Glucagon (Glucagon For Inj 1 Mg Vial) 1 mg SQ UD PRN; Protocol PRN Reason: Hypoglycemia Protocol Stop: 01/09/20 18:48 Glucose (Glucose 10 Tabs/Tube) 4 - 8 tabs PO UD PRN; Protocol PRN Reason: Hypoglycemia Protocol Stop: 01/09/20 18:48 Glucose (Glucose 40% Gel 15 Gm Tube) 15 - 30 gm PO UD PRN; Protocol PRN Reason: Hypoglycemia Protocol Stop: 01/09/20 18:48 Lorazepam (Ativan) 1 mg in 2 mls @ 2 mls/min IV UD PRN; Protocol PRN Reason: EtOH Withdrawl AWSS Score 6,7 Stop: 01/09/20 18:48 Lorazepam (Ativan) 2 mg in 4 mls @ 4 mls/min IV UD PRN; Protocol PRN Reason: EtOH Withdrawl AWSS Score 8,9 Stop: 01/09/20 18:48 Lorazepam (Ativan) 3 mg in 6 mls @ 4 mls/min IV ONCE PRN; Protocol PRN Reason: EtOH Withdrawl AWSS Score >=10 Stop: 01/09/20 18:48 Insulin Aspart (Insulin Aspart 100 Units/Ml 3 Ml Pen) 0 units SC ACHS [facility] Stop: 01/09/20 20:59 Last Admin: 12/10/19 19:43 Dose: Not Given Documented by: Levetiracetam (Levetiracetam 500 Mg Tab) 500 mg PO Q12H [facility] Stop: 01/09/20 19:59 Last Admin: 12/10/19 19:42 Dose: 500 mg Documented by: Losartan Potassium (Losartan Potassium 50 Mg Tab) 100 mg PO QAM [facility] Stop: 01/10/20 08:59 Magnesium Hydroxide (Magnesium Hydroxide Susp 30 Ml Udc) 30 ml PO Q12H PRN PRN Reason: Constipation Stop: 01/09/20 18:48 Miscellaneous (Carbohydrates For Hypoglycemia ) 15 - 30 gm PO UD PRN PRN Reason: Hypoglycemia Protocol Stop: 01/09/20 18:48 Neomycin/Polymyxin/Bacitracin (Neomycin/Polymyx/Bacitr Oint 15 Gm Tube) 1 appln EXT BID MARIOLA Stop: 01/09/20 20:59 Last Admin: 12/10/19 20:51 Dose: 1 appln Documented by: Nortriptyline HCl (Nortriptyline Hcl 25 Mg Cap) 75 mg PO HS [facility] Stop: 01/09/20 20:59 Last Admin: 12/10/19 19:42 Dose: 75 mg Documented by: Ondansetron HCl (Ondansetron Inj 2 Mg/Ml 2 Ml Vial) 4 mg IV Q6H PRN PRN Reason: Nausea Stop: 01/09/20 18:48 Pantoprazole Sodium (Pantoprazole 40 Mg Tab) 40 mg PO DAILY [facility] Stop: 01/10/20 08:59 Polyethylene Glycol (Polyethylene (Miralax) 17 Gm Pack) 17 gm PO DAILY PRN PRN Reason: Constipation Stop: 01/09/20 18:48 Potassium Phosphate (Pot Phosphate Monobasic W/ Sod Tab) 1 tab PO QID [facility] Stop: 01/09/20 20:59 Last Admin: 12/10/19 19:42 Dose: 1 tab Documented by: Thiamine HCl (Thiamine Hcl 100 Mg Tab) 100 mg PO QAM [facility] Stop: 01/09/20 19:59 Last Admin: 12/10/19 19:42 Dose: 100 mg Documented by:
[2019-12-11] MEDS: INSULIN ASPART 100 UNITS/ML 3 ML PEN SC SCH ×4 (08:19→20:29)
[2019-12-11] MEDS: levETIRAcetam 500 MG TAB PO SCH (08:31)
[2019-12-11] MEDS: NEOMYCIN/POLYMYX/BACITR OINT 15 GM TUBE EXT SCH ×2 (08:32→20:28)
[2019-12-11] MEDS: THIAMINE HCL 100 MG TAB PO SCH (08:33)
[2019-12-11] MEDS: POT PHOSPHATE MONOBASIC W/ SOD TAB PO SCH ×4 (08:33→20:29)
[2019-12-11] MEDS: FOLIC ACID 1 MG TAB PO SCH (08:33)
[2019-12-11] MEDS: LOSARTAN POTASSIUM 50 MG TAB PO SCH (08:33)
[2019-12-11] MEDS: PANTOprazole 40 MG TAB PO SCH (08:33)
--- NOTE | 2019-12-11 12:07 | Electroencephalogram ---
EEG Procedure Note Date of Service December 11, 2019 Start / End Times Start Time: 06:16 End Time: 06:36 Referring Physician Radha Lopez PA-C History A 39-year-old male with seizure-like activity. EEG performed for evaluation of epileptiform activity. Home Medication List Home Medications Medication Instructions Recorded Confirmed Type losartan-hydrochlorothiazide 1 tab PO DAILY 12/10/19 12/10/19 History nortriptyline 75 mg PO HS 12/10/19 12/10/19 History omeprazole 20 mg PO DAILY 12/10/19 12/10/19 History rosuvastatin [Crestor] 10 mg PO DAILY 12/10/19 12/10/19 History Inpatient Medication List Chlordiazepoxide HCl (Chlordiazepoxide Hcl 25 Mg Cap) 50 mg PO Q6H MARIOLA; Taper Stop: 12/13/19 19:59 Last Admin: 12/11/19 08:31 Dose: 50 mg Documented by: [id number] Admin: 12/11/19 03:18 Dose: 50 mg Documented by: [id number] Admin: 12/10/19 19:42 Dose: 50 mg Documented by: [id number] Folic Acid (Folic Acid 1 Mg Tab) 1 mg PO QAM MARIOLA Stop: 01/09/20 19:59 Last Admin: 12/11/19 08:33 Dose: 1 mg Documented by: [id number] Admin: 12/10/19 19:42 Dose: 1 mg Documented by: [id number] Insulin Aspart (Insulin Aspart 100 Units/Ml 3 Ml Pen) 0 units SC ACHS MARIOLA Stop: 01/09/20 20:59 Last Admin: 12/11/19 08:19 Dose: 1 units Documented by: [id number] Cosigned by: [id number] Admin: 12/10/19 19:43 Dose: Not Given Documented by: [id number] Cosigned by: [id number] Levetiracetam (Levetiracetam 500 Mg Tab) 500 mg PO Q12H MARIOLA Stop: 01/09/20 19:59 Last Admin: 12/11/19 08:31 Dose: 500 mg Documented by: [id number] Admin: 12/10/19 19:42 Dose: 500 mg Documented by: [id number] Losartan Potassium (Losartan Potassium 50 Mg Tab) 100 mg PO QAM MARIOLA Stop: 01/10/20 08:59 Last Admin: 12/11/19 08:33 Dose: 100 mg Documented by: [id number] Neomycin/Polymyxin/Bacitracin (Neomycin/Polymyx/Bacitr Oint 15 Gm Tube) 1 appln EXT BID MARIOLA Stop: 01/09/20 20:59 Last Admin: 12/11/19 08:32 Dose: 1 appln Documented by: [id number] Admin: 12/10/19 20:51 Dose: 1 appln Documented by: [id number] Nortriptyline HCl (Nortriptyline Hcl 25 Mg Cap) 75 mg PO HS MARIOLA Stop: 01/09/20 20:59 Last Admin: 12/10/19 19:42 Dose: 75 mg Documented by: [id number] Pantoprazole Sodium (Pantoprazole 40 Mg Tab) 40 mg PO DAILY MARIOLA Stop: 01/10/20 08:59 Last Admin: 12/11/19 08:33 Dose: 40 mg Documented by: [id number] Potassium Phosphate (Pot Phosphate Monobasic W/ Sod Tab) 1 tab PO QID MARIOLA Stop: 01/09/20 20:59 Last Admin: 12/11/19 08:33 Dose: 1 tab Documented by: [id number] Admin: 12/10/19 19:42 Dose: 1 tab Documented by: [id number] Thiamine HCl (Thiamine Hcl 100 Mg Tab) 100 mg PO QAM MARIOLA Stop: 01/09/20 19:59 Last Admin: 12/11/19 08:33 Dose: 100 mg Documented by: [id number] Admin: 12/10/19 19:42 Dose: 100 mg Documented by: [id number] Discontinued Medications Diphtheria/Pertussis/Tetanus Vacc (Diphtheria/Tetanus/Pertussis 0.5 Ml Syr/Vial) 0.5 ml IM .ONCE ONE Stop: 12/10/19 16:03 Last Admin: 12/10/19 16:11 Dose: 0.5 ml Documented by: [id number] Sodium Chloride (Nss 1000ml) 1,000 mls @ 999 mls/hr IV .Q1H1M ONE Stop: 12/10/19 15:17 Last Infusion: 12/10/19 15:42 Dose: 0 mls/hr Documented by: [id number] Admin: 12/10/19 14:41 Dose: 999 mls/hr Documented by: [id number] Lorazepam (Ativan) 1 mg in 2 mls @ 2 mls/min IV NOW STA Stop: 12/10/19 14:18 Last Admin: 12/10/19 14:41 Dose: 2 mls/min Documented by: [id number] Magnesium Sulfate/Dextrose (Magnesium Sulfate / D5w) 1 gm in 100 mls @ 100 mls/hr IV Q1H MARIOLA Stop: 12/10/19 16:51 Last Infusion: 12/10/19 19:16 Dose: 0 mls/hr Documented by: [id number] Admin: 12/10/19 16:50 Dose: 100 mls/hr Documented by: [id number] Infusion: 12/10/19 16:46 Dose: 0 mls/hr Documented by: [id number] Admin: 12/10/19 15:42 Dose: 100 mls/hr Documented by: [id number] Lorazepam (Ativan) 1 mg in 2 mls @ 2 mls/min IV NOW STA Stop: 12/10/19 15:58 Last Admin: 12/10/19 16:12 Dose: 2 mls/min Documented by: [id number] Multivitamins 10 ml/ Thiamine HCl 100 mg/ Folic Acid 1 mg/Sodium Chloride 1, 011.2 mls @ 500 mls/hr IV .Q2H2M ONE Stop: 12/10/19 18:53 Last Infusion: 12/10/19 21:14 Dose: 0 mls/hr Documented by: [id number] Admin: 12/10/19 18:50 Dose: 500 mls/hr Documented by: [id number] Potassium Phosphate 30 mmol/ (Sodium Chloride) 510 mls @ 88 mls/hr IV ONE ONE Stop: 12/10/19 23:47 Last Infusion: 12/11/19 00:56 Dose: 0 mls/hr Documented by: [id number] Admin: 12/10/19 18:50 Dose: 88 mls/hr Documented by: [id number] Description This is a 21 electrode EEG with a single channel dedicated to limited EKG. The electrodes were placed in accordance with the International 10-20 system. Report: At the onset of the EEG the patient is drowsy. The background is symmetric. The posterior dominant rhythm is not well seen. Instead the ba ckground predominantly consists of a mixture of theta activity as well as some indeterminate low amplitude faster activity. There is electrode artifact seen in the left parasagittal head region. There is also intermittent generalized electric artifact seen throughout the study. No stage 2 sleep transients are recorded. Photic stimulation is performed and does not induce any abnormalities. Impression: This is a normal drowsy and asleep routine EEG. There is no evidence of focal slowing or epileptiform activity.
--- NOTE | 2019-12-11 15:15 | Consultation Report ---
DATE OF CONSULTATION: 12/10/2019 NEUROLOGY CONSULTATION NOTE CHIEF COMPLAINT: New onset seizure. HISTORY OF PRESENT ILLNESS: A 39-year-old male with a past medical history of hypertension and insulin resistance, who presented to the Emergency Department yesterday after sustaining a seizure. The episode occurred prior to arrival to the Emergency Department. He has no history of prior seizures. The patient was working when he fell to the floor and hit his head. He was witnessed to have seizure-like activity lasting a few minutes. He did bite his tongue, but denies any loss of bowel or bladder. The patient was essentially fasting as he did not eat much or drink much during the day. He did not feel well in the morning and felt lightheaded. He denies any recent illness, fever, chills, sweats, dizziness, chest pain, shortness of breath, cough, abdominal pain, dysuria or polyuria. He did complain of feeling sweaty, palpitations and tremors. He does drink alcohol daily. He admits to drinking roughly a case of beer per week. If he does go without alcohol, he has noticed he develops tremors and does feel ill. He has never had a seizure before. No history of febrile seizures. No family history of seizures. ALLERGIES: No known allergies. HOME MEDICATIONS: Losartan-hydrochlorothiazide 1 tab daily, nortriptyline 75 mg nightly, omeprazole 20 mg daily, Crestor 10 mg daily. PAST MEDICAL HISTORY: Chronic alcohol use, hypertension, insulin resistance, hyperlipidemia. PAST SURGICAL HISTORY: History of an EGD, rectal surgery, anal fistula surgery. FAMILY HISTORY: His father had diabetes and hypertension. His grandmother had a myocardial infarction. SOCIAL HISTORY: He is . He is a former smoker. He drinks beer regularly. REVIEW OF SYSTEMS: All systems reviewed and are unremarkable except as noted: Tremors, diaphoresis, palpitations, seizure-like activity, loss of consciousness, dizziness. PHYSICAL EXAMINATION: VITAL SIGNS: Blood pressure 147/90, pulse is 83, respiratory rate is 18, temperature is 36.9, oxygen saturation is 96% on room air. CONSTITUTIONAL: He appears normally developed, appears stated age. Not obese. HEENT: Significant bruising and ecchymosis on left side of face. Normal eyelids. Normal conjunctivae. NECK: Supple. LUNGS: Normal respiratory effort. CARDIOVASCULAR: tachycardic ABDOMEN: Nondistended. No rash or skin lesion. PSYCHIATRIC: Normal mood and affect. NEUROLOGIC: He appears anxious or restless. He is awake, alert, oriented to person, place, and time. Patient memory to event is poor. His attention is decreased. His knowledge is appropriate. His comprehension is intact. He can repeat. No dysarthria. Speech is clear. No gross visual defect. His pupils are symmetric. Extraocular muscles are intact. His face is symmetric. His facial sensation is intact and hearing is intact. Palate is symmetric. Shoulder shrug is normal. Tongue is midline with an abrasion. Gait is wide based and unsteady. He is tremulous with outstretched hands. Intact to light touch. Muscle tone is normal. No gross weakness. Patient ambulating and pacing during interview so formal neuro assessment was difficult as patient became more irritable. DIAGNOSTIC TESTING AND LABORATORY VALUES: WBC 6.19, hemoglobin 11.3, platelet count 104. Sodium 139, potassium 3.5, chloride 105, carbon dioxide 27, BUN is 6, creatinine 0.77. Hemoglobin A1c is 6.3. Phosphorus was 0.8, now corrected to 4.1. Magnesium was 2.0. AST was 195, ALT is 178. On admission, these were 267 and 227. Prolactin is 13.85. Ethanol was less than 3. Head CT noncontrast showed no hemorrhage, mass effects, or evidence of acute ischemic stroke. There was a left frontal scalp hematoma. No depressed calvarial fracture identified. ASSESSMENT AND PLAN: A 39-year-old male with a history of hypertension and insulin resistance, admitted with new onset seizure secondary to alcohol withdrawal. Patient currently going through alcohol withdrawal and appears irritable and restless. Last drink was >24 hours ago. He is tremulous and unsteady on his feet. CT head noncontrast shows no evidence of acute intracranial abnormality. Routine EEG shows no evidence of epileptiform activity. Would recommend transfer to SDU for Ativan taper. Need to monitor close for risk of delirium tremens. Agree with alcohol withdrawal seizure precautions. Continue thiamine / B complex. The patient will benefit from Psychiatry consult. Discussed with patient that in [place] State law he is not allowed to drive for 6 months after sustaining a seizure. Would recommend stopping Keppra. Patient does not to follow up with neurology after discharge. [facility]
[2019-12-11] MEDS ORDERED: GABAPENTIN 1200MG ALCOHOL WITHDRAWAL LOAD PO ONE (15:58)
[2019-12-11] MEDS ORDERED: GABAPENTIN 600 MG TAB PO ONE (16:30)
[2019-12-11] MEDS ORDERED: LORazepam 2 MG/4 ML VIAL IV ONE (16:30)
[2019-12-11] MEDS ORDERED: HALOPERIDOL LACTATE 5 MG/ML 1 ML VIAL IM STA (17:24)
[2019-12-11] MEDS ORDERED: HALOPERIDOL LACTATE 5 MG/ML 1 ML VIAL ONE (17:29)
--- NOTE | 2019-12-11 18:24 | Critical Care Consultation ---
Date of Consultation December 11, 2019 Assessment & Plan (1) Alcohol withdrawal: Impression: 39-year-old male with a known history of alcohol abuse admitted with seizure-like activity felt to be due to alcohol withdrawal. He is now developed increasing agitation. Attributed to alcohol withdrawal/delirium tremens. Recommendations: 1. Alcohol withdrawal: Continue Ativan scheduled 4 mg every 4 hours as well as symptom dosed. Will hold Librium for now. Not sure Neurontin is doing much at this point time. Will use Geodon 10 mg IM or 5 mg IV as needed for agitation. If this fails to control the patient's symptoms would have low threshold for initiation of Precedex. Initiate high-dose thiamine and folate. Electrolyte replacement protocols will be entered. 2. Elevation in LFTs: They appear to be decreasing compared to admission. This is likely secondary to alcohol use. We will continue to trend. May benefit from assessment of ammonia level. 3. Glycemic control per protocol. DVT and GI prophylaxis will be initiated. If his agitation improves, okay to advance diet. We will observe in the ICU pending improvement in the patient's level of delirium. (2) Seizure-like activity: History of Present Illness Attending Physician: Gary Clark MD History of Present Illness Asked by hospitalist to assist in management of this patient with agitation, delirium, and alcohol withdrawal. History is obtained from review the electronic medical record. The patient is awake but not able to provide any significant history. The patient is a 39-year-old male who was admitted yesterday with seizure-like activity. CT the head was unrevealing and EEG did not show any seizure activity. Neurology felt this was consistent with alcohol withdrawal. He was loaded on Librium and Neurontin. He received some Ativan. This afternoon he became very agitated and pulled out his IVs. He required restraints. He received IM Haldol. He has shown some improvement but remains very impulsive and agitated. He is exceeding capability of nursing care for on the floor therefore it was recommended that he be retransferred to the ICU. Allergies Allergy/AdvReac Type Severity Reaction Status Date / Time No Known Allergies Allergy Unverified 12/10/19 15:32 Home Medications Home Medications Medication Instructions Recorded Confirmed Type losartan-hydrochlorothiazide 1 tab PO DAILY 12/10/19 12/10/19 History nortriptyline 75 mg PO HS 12/10/19 12/10/19 History omeprazole 20 mg PO DAILY 12/10/19 12/10/19 History rosuvastatin [Crestor] 10 mg PO DAILY 12/10/19 12/10/19 History Patient History Medical History (Updated 12/10/19 @ 17:19 by Radha Lopez PA-C) HALEY (generalized anxiety disorder) GERD (gastroesophageal reflux disease) HTN (hypertension) Hyperlipidemia Insomnia Prediabetes Surgical History History of esophagogastroduodenoscopy (EGD) History of rectal surgery Anal fistula surgery Family History Father Diabetes Hypertension Grandmother (Maternal) Myocardial infarction Social History (Updated 12/10/19 @ 17:07 by Radha Lopez PA-C) Smoking Status: Former smoker Do You Dip or Chew Tobacco: No; Tobacco Cessation Education Requested by Patient: No Hx Alcohol Use: Yes Alcohol type: beer Alcohol Intake Frequency Comment: A case of beer per week Hx Substance Use: No Preferred Language: Cypriot Communication Ability: Effective Apartment House Manager Required: No Beliefs That Will Affect Care: None marital status: Current Living Situation: Spouse current occupational status: employed Other Information That Helps Us Care for You: No Feels Safe at Home: Yes Safety Concerns: Feels Safe At This Time Assistive Devices: Contacts and Glasses Review of Systems Review of Systems: Unobtainable due to mental health condition Physical Exam Physical Exam: Constitutional: WD/WN, male, sitting up in bed in NAD Head: Normocephalic, abrasion to left and lateral forehead with erythematous wound bed, no drainage Eyes: PERRL, EOMI, conjunctivae normal, anicteric sclerae ENMT: external ear and nose normal, oropharynx normal Neck: trachea midline, no thyromegaly normal visual inspection Respiratory: normal respiratory effort, lungs clear to auscultation, no wheeze, rales, rhonchi. Normal insp/exp effort, no accessory muscle use Cardiovascular: rrr, no murmur, no edema Vessels: no JVD or carotid bruit Chest: normal inspection of chest Abdomen: normal bowel sounds, nontender, mildly distended Musculoskeletal: no cyanosis or clubbing, extremities motor strength 5/5 Skin: no rashes, warm and dry normal turgor Neurologic: mildly tremulous, no asterixis, PERRL, EOMI, accommodation nl, no face palsy, no dysarthria CN's II-XI intact bilaterally and moves all extremities Psychiatric: A+Ox3, euthymic affect Results & Data Results & Data ([facility]) Vital Signs (Past 12 Hours) Vital Signs Temp Pulse Pulse Resp BP Pulse Ox 12/11/19 16:36 36.8 C 106 H 24 135/85 100 12/11/19 15:19 37.0 C 104 H 18 167/100 H 99 12/11/19 11:12 36.9 C 83 18 147/90 H 96 12/11/19 08:00 82 12/11/19 07:56 36.6 C 89 18 136/84 96 Laboratory Results 12/11/19 00:55 12/11/19 00:55 Diagnostic Findings Trauma imaging reviewed. No evidence of traumatic injury. Coding Level of Care Code 52149 Inpt Consult Level 4 Diagnoses Alcohol withdrawal F10.239 Seizure-like activity R56.9
[2019-12-11] MEDS ORDERED: LORazepam 4 MG/8 ML VIAL IV STA (18:27)
--- NOTE | 2019-12-11 18:30 | Critical Care Consultation ---
Date of Consultation December 11, 2019 History of Present Illness Reason for Consultation: Alcohol Withdrawal Attending Physician: Gary Clark MD History of Present Illness Patient is a 39 year old male with PMHx Alcohol abuse, Prediabetes, HLD, HTN who presented initially with seizure like activity while at work. Allergies Allergy/AdvReac Type Severity Reaction Status Date / Time No Known Allergies Allergy Unverified 12/10/19 15:32 Home Medications Home Medications Medication Instructions Recorded Confirmed Type losartan-hydrochlorothiazide 1 tab PO DAILY 12/10/19 12/10/19 History nortriptyline 75 mg PO HS 12/10/19 12/10/19 History omeprazole 20 mg PO DAILY 12/10/19 12/10/19 History rosuvastatin [Crestor] 10 mg PO DAILY 12/10/19 12/10/19 History Patient History Medical History (Updated 12/10/19 @ 17:19 by Radha Lopez PA-C) HALEY (generalized anxiety disorder) GERD (gastroesophageal reflux disease) HTN (hypertension) Hyperlipidemia Insomnia Prediabetes Surgical History History of esophagogastroduodenoscopy (EGD) History of rectal surgery Anal fistula surgery Family History Father Diabetes Hypertension Grandmother (Maternal) Myocardial infarction Social History (Updated 12/10/19 @ 17:07 by Radha Lopez PA-C) Smoking Status: Former smoker Do You Dip or Chew Tobacco: No; Tobacco Cessation Education Requested by Patient: No Hx Alcohol Use: Yes Alcohol type: beer Alcohol Intake Frequency Comment: A case of beer per week Hx Substance Use: No Preferred Language: Slovak Communication Ability: Effective Clothing Pattern Preparer Required: No Beliefs That Will Affect Care: None marital status: Current Living Situation: Spouse current occupational status: employed Other Information That Helps Us Care for You: No Feels Safe at Home: Yes Safety Concerns: Feels Safe At This Time Assistive Devices: Contacts and Glasses Results & Data Results & Data ([facility]) Vital Signs (Past 12 Hours) Vital Signs Temp Pulse Pulse Resp BP Pulse Ox 12/11/19 16:36 36.8 C 106 H 24 135/85 100 12/11/19 15:19 37.0 C 104 H 18 167/100 H 99 12/11/19 11:12 36.9 C 83 18 147/90 H 96 12/11/19 08:00 82 12/11/19 07:56 36.6 C 89 18 136/84 96
[2019-12-11] MEDS ORDERED: ZIPRASIDONE 20 MG/ML SDV IM PRN (18:31)
[2019-12-11] MEDS ORDERED: LORazepam 3 MG/6 ML VIAL IV PRN (19:45)
[2019-12-11] MEDS ORDERED: ATIVAN IV ALCOHOL WITHDRAWL IV PRN (19:45)
[2019-12-11] MEDS ORDERED: LORazepam 1 MG/2 ML VIAL IV PRN (19:45)
[2019-12-11] MEDS ORDERED: ICU ELECTROLYTE REPLACEMENT PROTOCOL PRN (19:45)
[2019-12-11] MEDS ORDERED: LORazepam 2 MG/4 ML VIAL IV PRN ×2 (19:45)
[2019-12-11] MEDS: ICU PROTOCOL FOR HYPERGLYCEMIA SCH (20:28)
[2019-12-11] MEDS: NORTRIPTYLINE HCL 25 MG CAP PO SCH (20:29)
[2019-12-11] MEDS: LORazepam 4 MG/8 ML VIAL IV SCH (21:53)
[2019-12-11] MEDS ORDERED: GABAPENTIN 600 MG TAB PO SCH (22:00)
[2019-12-12] MEDS: NORMOSOL-R 1,000 ML IV SCH ×2 (00:40→13:47)
[2019-12-12] MEDS: LORazepam 4 MG/8 ML VIAL IV SCH ×6 (01:41→21:57)
[2019-12-12] MEDS ORDERED: STAT IV Infusion **Titration per Protocol STA (03:02)
[2019-12-12] MEDS ORDERED: LORazepam 2 MG/4 ML VIAL IV STA (03:02)
[2019-12-12] MEDS: DEXMEDETOMIDINE HCL 200 MCG in SODIUM CHLORIDE 0.9% 48 ML IV SCH ×8 (03:48→21:57)
[2019-12-12 04:46] LABS: Hematocrit (blood only) 36.8 % (42-52); Hemoglobin 11.9 g/dL (14.0-18.0); Mean Corpuscular Hemoglobin 32.8 pg (25-34); Mean Corpuscular Hgb Conc 32.3 g/dL (32-36); Mean Corpuscular Volume 101.4 fL (80-100); Mean Platelet Volume 10.2 fL (7.4-10.4); Platelet Count 115 K/uL (130-400); RDW Coefficient of Variation 13.6 % (11.5-14.5); RDW Standard Deviation 50.4 fL (36.4-46.3); Red Blood Count 3.63 M/uL (4.7-6.1); White Blood Count 6.49 K/uL (4.8-10.8)
[2019-12-12 05:09] LABS: Albumin Level 3.6 gm/dl (3.4-5.0); BUN Creatinine Ratio 9.7 (10-20); Calcium 8.3 mg/dl (8.5-10.1); Creatinine Clr Calc Pharmacy 161.1 ml/min; Est GFR (African American) 133.2; Est GFR (Non-African American) 114.9; Magnesium 1.7 mg/dl (1.8-2.4); Potassium 3.4 mmol/L (3.5-5.1)
[2019-12-12 05:12] LABS: Albumin Globulin Ratio 0.8 (0.9-2); Bilirubin,Total 0.9 mg/dl (0.2-1); Globulin 4.3 gm/dl (2.5-4.0); Phosphorus 3.6 mg/dl (2.5-4.9); Total Protein 7.9 gm/dl (6.4-8.2)
[2019-12-12] MEDS ORDERED: MAGNESIUM SULFATE / D5W 1 GM/100 ML BAG IV ONE (06:15)
[2019-12-12] MEDS: POTASSIUM CHLORIDE / WTR 10 MEQ/100 ML PLCT IV SCH ×3 (06:36→08:56)
--- NOTE | 2019-12-12 07:54 | Critical Care Progress Note ---
Date of Service December 12, 2019 Assessment & Plan (1) Alcohol withdrawal: Reason Critically Ill: 39M with known history of alcohol abuse admitted secondary to a seizure like event at work, thought to be due to alcohol withdrawal. Had increasing agitation on the floor likely related to alcohol withdrawal/delirium tremens requiring transfer to ICU for further withdrawal management and treatment. NEURO: [facility] ICU: Positive Alcohol Withdrawal -Likely cause of patients initial seizure like activity -Patient noting 1 case beer/week, though states he has between a 12 pack and a case daily. -EEG showing normal drowsy and asleep findings -Started on oral AWSS protocol on the floor, patient with continually worsening agitation -Continue Ativan 4mg q4h as well as PRN Ativan -Precedex drip running at 0.2, titrate up as needed -Geodon 10mg IM BID PRN for significant agitation -Continue high-dose thiamine and folate -Hold Librium at this time -Continue 1:1 for safety reasons Depression -Will hold Nortriptyline at this time CARDIAC: Hyperlipidemia -Holding statin while LFTs elevated HTN -Losartan 100mg QD RESPIRATORY: -Breathing comfortably on room air -Monitor for worsening respiratory status due to increased sedative medications -CO2 monitor in place GI: GERD -Continue Protonix 40mg QD Elevated LFTs -Likely secondary to alcohol use/abuse -Continue to trend -If mentation worsens, can consider ammonia level -Will advance diet as agitation improves RENAL/LYTES: -Repletion per ICU electrolyte protocol -Mag 1.7 this AM, received 1g mag sulfate IV -Normosol 80ml/hr : -No concerns at this time ENDO: -Glycemic control per protocol -No prior DM or Thyroid history HEME: -Hgb stable ID: Abrasion on L face, secondary to fall -Continue Neosporin daily LINES/IV ACCESS: 2 peripheral IVs CODE STATUS: Full DVT PROPHYLAXIS: Lovenox 40 qd Thank you for allowing us to participate in the care of this patient. Please refer to my attending physician's documentation for any further recommendations. (2) Seizure-like activity: (3) HTN (hypertension): (4) GERD (gastroesophageal reflux disease): (5) Prediabetes: (6) Hyperlipidemia: (7) DTs (delirium tremens): (8) Elevated LFTs: Admission and Anticipated Discharge Date Admission Date: December 10, 2019 Supervising Physician Co-Signing Physician Notes Patient seen and examined. EMR reviewed. Discussed with family practice resident on rounds. Agree with assessment and plan as noted above. The patient continues to be monitored for alcohol withdrawal. He is been initiated on Precedex and continues to receive intermittent Geodon as well as Ativan. He had one episode of agitation this morning which responded to Geodon and increased Ativan. Wean Precedex as tolerated. Continue high-dose thiamine and folate. Electrolyte replacement protocols are initiated. was updated at bedside. He will require referral for alcohol rehab once he is out of detox. Subjective Patient examined at the bedside. Soft restraints in place and 1:1 present in the room. Patient mildly agitated. Answers questions noting that he is not in pain, but does not know why he's here and is asking for his . Consistently tugging and pulling at his soft restraints. Is unable to provide any other meaningful history of ROS. Review of Systems Review of Systems: Unobtainable due to cognitive status Physical Exam Constitutional: well developed, well nourished and + combative Soft Upper limb restraints in place Eyes: PERRL, conjunctivae normal, anicteric sclerae ENMT: external ear and nose normal, oropharynx normal Neck: trachea midline, no thyromegaly normal visual inspection Respiratory: normal respiratory effort, lungs clear to auscultation Cardiovascular: RRR, no murmur, no edema Gastrointestinal (Abdomen): normal bowel sounds, soft, nontender, no hepatosplenomegaly Musculoskeletal: no cyanosis or clubbing, extremities motor strength 5/5 Soft upper limb restraints in place Skin: Abrasion of the L lateral forehead with scabbing. No drainage or bloody discharge. Neurologic: PERRL, EOMI, accommodation nl, no face palsy, no dysarthria moves all extremities Psychiatric: Orientation: + guarded; + not oriented to person, + not oriented to place, + not oriented to time and + uncooperative Eye Contact: + poor eye contact Affect: + irritable affect Results & Data Results & Data ([facility]) Vital Signs (Past 12 Hours) Vital Signs Temp Pulse BP Pulse Ox 12/12/19 06:00 37 C 79 99 12/12/19 05:04 83 129/79 98 12/12/19 05:00 86 97 12/12/19 04:04 83 123/76 97 10/08/20 04:00 84 97 12/12/19 03:04 106 H 134/87 12/12/19 03:00 107 H 12/12/19 02:04 86 125/86 98 12/12/19 02:00 87 98 12/12/19 01:04 90 120/78 97 12/12/19 01:00 90 98 12/12/19 00:04 93 H 130/81 97 12/12/19 00:00 93 H 97 12/11/19 23:04 92 H 139/84 97 12/11/19 23:00 97 H 98 12/11/19 22:04 90 138/84 98 12/11/19 22:00 94 H 99 12/11/19 21:04 89 124/80 97 12/11/19 21:00 90 97 12/11/19 20:03 85 127/77 98 12/11/19 20:00 85 141/77 H 98 12/11/19 19:58 84 135/77 99 12/11/19 19:55 80 134/81 99 12/11/19 19:52 82 146/84 H 100 Resident Activity Tracking Resident Involvement: Resident Care Provided Care Provided: Adult Hospital Medicine
[2019-12-12] MEDS: INSULIN ASPART 100 UNITS/ML 3 ML PEN SC SCH ×3 (08:56→18:17)
--- NOTE | 2019-12-12 09:16 | Hospitalist Progress Note ---
Date of Service December 12, 2019 Assessment & Plan (1) Seizure-like activity: This is a 39-year-old male who has significant past medical history of HTN, HLD, GERD, prediabetes who presents to ED after sustaining seizure-like activity prior to arrival. Seizure like activity 2/2 alcohol withdrawal, and in the setting of electrolyte abnormalities No prior hx of seizure in past admitted to PCU initially, currently in ICU, on Precedex, IV Ativan, also required Geodon started keppra 500mg bid by admitting provider, discussed with neurology, Keppra discontinued as seizure seems to be secondary to alcohol withdrawal EEG ordered - unremarkable Neurology consulted - appreciate their input Patient will not be able to drive for 6 months, patient aware tx for alcohol withdrawal as below (2) Alcohol withdrawal: encourage alcohol abstinence Gave Banana Bag x 1 on admission daily thiamine and folic acid Librum taper, PRN lorazepam for active withdrawal, patient was also loaded with gabapentin, however he had severe withdrawal and required admission to ICU Currently on IV Precedex, IV Ativan, also required Geodon this morning Patient required above 30 mg of IV Ativan while in ICU seizure precautions Patient in need of alcohol rehab after discharge (3) Hypomagnesemia: received 2g mag sulfate in ED cont. to monitor and replete as needed (4) Elevated LFTs: likely in setting of ETOH use, prior elevated lfts in outpt lab last US abd 04/2017 revealed mild hepatomegaly with diffuse increased echogenicity of liver hold statin, obtain US of abd RUQ Ultrasound showed some sludge and polyp in gallbladder, recommend to follow-up after his active alcohol withdrawal (5) Prediabetes: Pt with hyperglycemia, BSG 249 Last A1c 6.2 12/12/2018 Obtained Hgb A1c 6.3% Accu-Cheks, NovoLog per protocol (6) HTN (hypertension): BP elevated in setting of withdrawal continue losartan but hold HCTZ monitor (7) Hyperlipidemia: hold statin in setting of elevated LFTS Full Code Disposition: ICU Follow up: PCP Dr. Langford upon discharge Admission and Anticipated Discharge Date Admission Date: December 10, 2019 Subjective Pt is currently lying in bed, on IV Ativan, Precedex, also required Geodon. Patient is in intensive care unit. Patient's mother is at the bedside as well as sitter. Cannot assess review of systems Review of Systems Review of Systems: Unobtainable due to reduced consciousness Physical Exam Physical Exam: Constitutional: WD/WN, male, lying in bed in NAD, sedated Head: Normocephalic, abrasion to left and lateral forehead with erythematous wound bed, no drainage Eyes: PERRL, conjunctivae normal, anicteric sclerae ENMT: external ear and nose normal, oropharynx normal Neck: trachea midline, no thyromegaly normal visual inspection Respiratory: normal respiratory effort, lungs clear to auscultation, no wheeze, rales, rhonchi. Normal insp/exp effort, no accessory muscle use Cardiovascular: rrr, no murmur, no edema Vessels: no JVD or carotid bruit Chest: normal inspection of chest Abdomen: normal bowel sounds, nontender, mildly distended Musculoskeletal: no cyanosis or clubbing, moves extremities spontaneously Skin: no rashes, warm and dry normal turgor Neurologic: PERRL, no face palsy, moves all extremities Psychiatric: Currently patient is sedated, unable to answer questions Results & Data Results & Data ([facility]) Vital Signs (Past 12 Hours) Vital Signs Temp Pulse BP Pulse Ox 12/12/19 06:00 37 C 79 99 12/12/19 05:04 83 129/79 98 12/12/19 05:00 86 97 12/12/19 04:04 83 123/76 97 12/12/19 04:00 84 97 12/12/19 03:04 106 H 134/87 12/12/19 03:00 107 H 12/12/19 02:04 86 125/86 98 12/12/19 02:00 87 98 12/12/19 01:04 90 120/78 97 12/12/19 01:00 90 98 12/12/19 00:04 93 H 130/81 97 12/12/19 00:00 93 H 97 12/11/19 23:04 92 H 139/84 97 12/11/19 23:00 97 H 98 12/11/19 22:04 90 138/84 98 12/11/19 22:00 94 H 99 Laboratory Results 12/12/19 12/12/19 12/11/19 Range/Units 04:35 04:35 20:20 WBC 6.49 (4.8-10.8) K/uL RBC 3.63 L (4.7-6.1) M/uL Hgb 11.9 L (14.0-18.0) g/dL Hct 36.8 L (42-52) % MCV 101.4 H (80-100) fL MCH 32.8 (25-34) pg MCHC 32.3 (32-36) g/dL RDW Std Deviation 50.4 H (36.4-46.3) fL RDW Coeff of Cori 13.6 (11.5-14.5) % Plt Count 115 L (130-400) K/uL MPV 10.2 (7.4-10.4) fL Sodium 140 (136-145) mmol/L Potassium 3.4 L (3.5-5.1) mmol/L Chloride 106 (98-107) mmol/L Carbon Dioxide 28 (21-32) mmol/L Anion Gap 6.0 (3-11) BUN 7 (7-18) mg/dl Creatinine 0.76 (0.6-1.4) mg/dl Est Cr Clr Drug Dosing 161.1 ml/min Est GFR ( Amer) 133.2 Est GFR (Non-Af Amer) 114.9 BUN/Creatinine Ratio 9.7 L (10-20) Glucose 114 H (70-99) mg/dl POC Glucose 109 H (70-99) mg/dl Calcium 8.3 L (8.5-10.1) mg/dl Phosphorus 3.6 (2.5-4.9) mg/dl Magnesium 1.7 L (1.8-2.4) mg/dl Total Bilirubin 0.9 (0.2-1) mg/dl AST 189 H (15-37) U/L ALT 167 H (12-78) U/L Alkaline Phosphatase 85 (45-117) U/L Total Protein 7.9 (6.4-8.2) gm/dl Albumin 3.6 (3.4-5.0) gm/dl Globulin 4.3 H (2.5-4.0) gm/dl Albumin/Globulin Ratio 0.8 L (0.9-2) Folate (>5.38) ng/ml 12/11/19 12/11/19 12/11/19 Range/Units 19:53 17:53 11:18 WBC (4.8-10.8) K/uL RBC (4.7-6.1) M/uL Hgb (14.0-18.0) g/dL Hct (42-52) % MCV (80-100) fL MCH (25-34) pg MCHC (32-36) g/dL RDW Std Deviation (36.4-46.3) fL RDW Coeff of Cori (11.5-14.5) % Plt Count (130-400) K/uL MPV (7.4-10.4) fL Sodium (136-145) mmol/L Potassium (3.5-5.1) mmol/L Chloride (98-107) mmol/L Carbon Dioxide (21-32) mmol/L Anion Gap (3-11) BUN (7-18) mg/dl Creatinine (0.6-1.4) mg/dl Est Cr Clr Drug Dosing ml/min Est GFR ( Amer) Est GFR (Non-Af Amer) BUN/Creatinine Ratio (10-20) Glucose (70-99) mg/dl POC Glucose 117 H 126 H (70-99) mg/dl Calcium (8.5-10.1) mg/dl Phosphorus (2.5-4.9) mg/dl Magnesium (1.8-2.4) mg/dl Total Bilirubin (0.2-1) mg/dl AST (15-37) U/L ALT (12-78) U/L Alkaline Phosphatase (45-117) U/L Total Protein (6.4-8.2) gm/dl Albumin (3.4-5.0) gm/dl Globulin (2.5-4.0) gm/dl Albumin/Globulin Ratio (0.9-2) Folate 19.06 (>5.38) ng/ml Medications Administered Current Inpatient Medications Al Hydrox/Mg Hydrox/Simethicone (Aluminum/Magnesium Susp 30 Ml Udc) 15 ml PO Q4H PRN PRN Reason: Dyspepsia Stop: 01/09/20 18:48 Cyanocobalamin (Cyanocobalamin 500 Mcg Tablet (Vitamin B-12)) 1,000 mcg PO QAM MARIOLA Stop: 01/11/20 08:59 Enoxaparin Sodium (Enoxaparin Inj 40 Mg/0.4 Ml Syr) 40 mg SQ DAILY MARIOLA Stop: 01/11/20 08:59 Folic Acid (Folic Acid 1 Mg Tab) 1 mg PO QAM MARIOLA Stop: 01/09/20 19:59 Last Admin: 12/11/19 08:33 Dose: 1 mg Documented by: Glucagon (Glucagon For Inj 1 Mg Vial) 1 mg SQ UD PRN; Protocol PRN Reason: Hypoglycemia Protocol Stop: 01/09/20 18:48 Glucose (Glucose 10 Tabs/Tube) 4 - 8 tabs PO UD PRN; Protocol PRN Reason: Hypoglycemia Protocol Stop: 01/09/20 18:48 Glucose (Glucose 40% Gel 15 Gm Tube) 15 - 30 gm PO UD PRN; Protocol PRN Reason: Hypoglycemia Protocol Stop: 01/09/20 18:48 Lorazepam (Ativan) 4 mg in 8 mls @ 4 mls/min IV Q4H [facility] Stop: 01/10/20 21:59 Last Admin: 12/12/19 05:52 Dose: 4 mls/min Documented by: Lorazepam (Ativan) 2 mg in 4 mls @ 4 mls/min IV Q2H PRN PRN Reason: RASS goal -1 Stop: 01/10/20 19:44 Lorazepam (Ativan) 1 mg in 2 mls @ 2 mls/min IV UD PRN; Protocol PRN Reason: EtOH Withdrawl AWSS Score 6,7 Stop: 01/10/20 19:44 Lorazepam (Ativan) 2 mg in 4 mls @ 4 mls/min IV UD PRN; Protocol PRN Reason: EtOH Withdrawl AWSS Score 8,9 Stop: 01/10/20 19:44 Lorazepam (Ativan) 3 mg in 6 mls @ 4 mls/min IV ONCE PRN; Protocol PRN Reason: EtOH Withdrawl AWSS Score >=10 Stop: 01/10/20 19:44 Last Admin: 12/12/19 07:51 Dose: 4 mls/min Documented by: Parenteral Electrolytes (Normosol-R) 1,000 mls @ 80 mls/hr IV .[id number] [facility] Stop: 01/10/20 23:44 Last Admin: 12/12/19 00:40 Dose: 80 mls/hr Documented by: Dexmedetomidine HCl 200 mcg/ (Sodium Chloride) 50 mls @ 4.92 mls/hr IV .[id number] [facility]; Protocol Stop: 12/16/19 03:14 Last Admin: 12/12/19 08:54 Dose: 0.4 mcg/kg/hr, 9.8 mls/hr Documented by: Insulin Aspart (Insulin Aspart 100 Units/Ml 3 Ml Pen) 0 units SC ACHS MARIOLA Stop: 01/09/20 20:59 Last Admin: 12/12/19 08:56 Dose: Not Given Documented by: Losartan Potassium (Losartan Potassium 50 Mg Tab) 100 mg PO QAM MARIOLA Stop: 01/10/20 08:59 Last Admin: 12/11/19 08:33 Dose: 100 mg Documented by: Magnesium Hydroxide (Magnesium Hydroxide Susp 30 Ml Udc) 30 ml PO Q12H PRN PRN Reason: Constipation Stop: 01/09/20 18:48 Miscellaneous (Carbohydrates For Hypoglycemia ) 15 - 30 gm PO UD PRN PRN Reason: Hypoglycemia Protocol Stop: 01/09/20 18:48 Miscellaneous (Icu Protocol For Hyperglycemia) 1 ea N/A QAM MARIOLA Stop: 12/13/19 19:44 Last Admin: 12/11/19 20:28 Dose: Not Given Documented by: Miscellaneous (Icu Electrolyte Replacement Protocol) 1 ea N/A UD PRN PRN Reason: for e-lyte repletion Stop: 12/18/19 19:44 Neomycin/Polymyxin/Bacitracin (Neomycin/Polymyx/Bacitr Oint 15 Gm Tube) 1 appln EXT BID MARIOLA Stop: 01/09/20 20:59 Last Admin: 12/11/19 20:28 Dose: 1 appln Documented by: Nortriptyline HCl (Nortriptyline Hcl 25 Mg Cap) 75 mg PO HS [facility] Stop: 01/09/20 20:59 Last Admin: 12/11/19 20:29 Dose: Not Given Documented by: Ondansetron HCl (Ondansetron Inj 2 Mg/Ml 2 Ml Vial) 4 mg IV Q6H PRN PRN Reason: Nausea Stop: 01/09/20 18:48 Pantoprazole Sodium (Pantoprazole 40 Mg Tab) 40 mg PO DAILY MARIOLA Stop: 01/10/20 08:59 Last Admin: 12/11/19 08:33 Dose: 40 mg Documented by: Polyethylene Glycol (Polyethylene (Miralax) 17 Gm Pack) 17 gm PO DAILY PRN PRN Reason: Constipation Stop: 01/09/20 18:48 Thiamine HCl (Thiamine Hcl 100 Mg Tab) 100 mg PO QAM MARIOLA Stop: 01/09/20 19:59 Last Admin: 12/11/19 08:33 Dose: 100 mg Documented by: Ziprasidone (Ziprasidone 20 Mg/Ml Sdv) 10 mg IM Q2H PRN PRN Reason: Agitation Stop: 01/10/20 18:44
[2019-12-12] MEDS ORDERED: LORazepam 2 MG/4 ML VIAL ONE (09:28)
[2019-12-12] MEDS: LOSARTAN POTASSIUM 50 MG TAB PO SCH (10:14)
[2019-12-12] MEDS ORDERED: DexMEDEtomidine BOLUS FROM BAG IV ONE (10:15)
[2019-12-12] MEDS: FOLIC ACID 1 MG TAB PO SCH (10:15)
[2019-12-12] MEDS: ICU PROTOCOL FOR HYPERGLYCEMIA SCH (10:19)
[2019-12-12] MEDS: PANTOprazole 40 MG TAB PO SCH (10:22)
[2019-12-12] MEDS: CYANOCOBALAMIN 500 MCG TABLET (VITAMIN B-12) PO SCH (10:22)
[2019-12-12] MEDS: THIAMINE HCL 100 MG TAB PO SCH (10:22)
[2019-12-12] MEDS: ENOXAPARIN INJ 40 MG/0.4 ML SYR SQ SCH (11:26)
[2019-12-12] MEDS: NEOMYCIN/POLYMYX/BACITR OINT 15 GM TUBE EXT SCH ×2 (11:27→20:47)
[2019-12-12] MEDS ORDERED: GABAPENTIN 600 MG TAB PO SCH (12:00)
--- NOTE | 2019-12-12 12:53 | Billing Data ---
Date of Service December 12, 2019 Coding Level of Care Code 06037 Subseq Hosp Care Lvl 2 Time Spent (min) 25
[2019-12-12] MEDS: THIAMINE HCL 100 MG in SYRINGE 9 ML IV SCH ×2 (13:45→20:50)
[2019-12-12] MEDS ORDERED: LIDOCAINE 2% JELLY 5 ML TUBE ONE (14:28)
--- NOTE | 2019-12-12 17:01 | Progress Notes ---
DATE: 12/12/2019 NEUROLOGY CONSULTATION PROGRESS NOTE A 39-year-old male. CHIEF COMPLAINT: Alcohol withdrawal. SUBJECTIVE: The patient was seen and examined at bedside this afternoon. His mother is at bedside as well as a bedside sitter. The patient is currently receiving Precedex intravenously and is sedated. He had a Dixon catheter placed this afternoon and remains in restraints. The patient had some periods of agitation and required over 30 mg of Ativan intravenously. OBJECTIVE: VITAL SIGNS: Blood pressure 103/72, pulse is 74, respiratory rate is 20, temperature is 36.9 degrees Celsius, oxygen saturation is 97% on 2 liters nasal cannula. GENERAL: The patient appears acutely ill, although in no distress. He is snoring and currently he is sleeping. HEENT: He has significant bruising and ecchymosis on the left side of his face. LUNGS: Respiratory effort is normal. CARDIAC: Pulses are normal. ABDOMEN: Nondistended. EXTREMITIES: He has no rash on his upper extremities. Both of his wrists are restrained. PSYCHIATRIC: Unable to assess mood currently as he is sleeping due to sedation. NEUROLOGIC: Orientation is unable to be assessed due to sedation. His attention and concentration are both decreased. He is nonverbal currently. He is snoring. His eyes are midline. He has no tremor or myoclonic jerks. His tongue is midline with an abrasion on the left side. Gait evaluation is deferred. He withdraws to noxious stimuli. He is moving all 4 extremities against gravity. DIAGNOSTIC TESTING AND LABORATORY VALUES: WBC 6.49, hemoglobin 11.9, platelet count is 115. Sodium is 140, potassium 3.4, chloride 106, BUN is 7, creatinine 0.76. AST is elevated at 189, ALT is elevated at 167. Folate is 19.06. ASSESSMENT AND PLAN: A 39-year-old male with a history of hypertension, insulin resistance, and chronic alcohol use, admitted with an alcohol withdrawal seizure as well as [id number] alcohol withdrawal. The patient was high risk for delirium tremens and required significant amounts of IV Ativan. He is currently in the intensive care unit receiving Precedex for severe alcohol withdrawal. The patient's vital signs have improved since I last saw him yesterday. His CT head noncontrast showed no evidence of an acute intracranial hemorrhage or ischemic stroke. Routine EEG performed yesterday with a normal drowsy and sleep EEG. There was no epileptiform activity recorded. I did discuss the case with his mother at bedside. Agree with stopping Keppra. We do not use antiepileptic medications for alcohol withdrawal. The patient will certainly need to follow up with psychiatry as an outpatient for assistance with alcohol abuse. Otherwise, I will defer to the intensive care unit for the current management of his alcohol detoxification. Otherwise, I think neurology will sign off for now. Please contact us with any additional questions or concerns. The patient does not require neurology followup upon discharge. I once again did discuss with the patient's mother that he is not allowed to drive for 6 months per [place] State law.
[2019-12-12] MEDS: ZIPRASIDONE 20 MG/ML SDV IM PRN (22:22)
[2019-12-13] MEDS: DEXMEDETOMIDINE HCL 200 MCG in SODIUM CHLORIDE 0.9% 48 ML IV SCH ×5 (00:03→08:23)
[2019-12-13] MEDS: INSULIN ASPART 100 UNITS/ML 3 ML PEN SC SCH ×4 (00:05→18:00)
[2019-12-13] MEDS: NORMOSOL-R 1,000 ML IV SCH ×2 (00:06→12:42)
[2019-12-13] MEDS: LORazepam 4 MG/8 ML VIAL IV SCH ×5 (01:38→22:01)
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
--- NOTE | 2019-12-13 06:40 | Critical Care Progress Note ---
Date of Service December 13, 2019 Assessment & Plan (1) Alcohol withdrawal: Reason Critically Ill: 39M with known history of alcohol abuse admitted secondary to a seizure like event at work, thought to be due to alcohol withdrawal. Had increasing agitation on the floor likely related to alcohol withdrawal/delirium tremens requiring transfer to ICU for further withdrawal management and treatment. NEURO: [facility] ICU: Positive Alcohol Withdrawal -Likely cause of patients initial seizure like activity, CT and EEGs negative -Patient noting 1 case beer/week, though states he has between a 12 pack and a case daily. -EEG showing normal drowsy and asleep findings -Started on oral AWSS protocol on the floor, patient with continually worsening agitation -Continue Ativan 4mg q4h as well as PRN Ativan -Precedex drip running at 1.1, titrate as needed -Geodon 10mg IM BID PRN for significant agitation -Continue high-dose thiamine and folate -Hold Librium at this time -Continue 1:1 for safety reasons -Due to patients aggressiveness overnight, was placed in 4 limb soft restraints, will continue to assess for need frequently. Depression -Will hold Nortriptyline at this time CARDIAC: Hyperlipidemia -Holding statin while LFTs elevated HTN -Losartan 100mg QD - will hold at this time as patient unable to properly take PO, pressures stable and WNL RESPIRATORY: -Breathing comfortably on room air -Monitor for worsening respiratory status due to increased sedative medications -CO2 monitor in place GI: GERD -Continue Protonix 40mg QD Elevated LFTs -Likely secondary to alcohol use/abuse -Continue to trend -If mentation worsens, can consider ammonia level -Will advance diet as agitation improves RENAL/LYTES: -Repletion per ICU electrolyte protocol -Normosol 80ml/hr : -Chow cathter in place ENDO: -Glycemic control per protocol -No prior DM or Thyroid history HEME: -Hgb stable ID: Abrasion on L face, secondary to fall -Continue Neosporin daily LINES/IV ACCESS: 2 peripheral IVs CODE STATUS: Full DVT PROPHYLAXIS: Lovenox 40 qd Thank you for allowing us to participate in the care of this patient. Please re lexii to my attending physician's documentation for any further recommendations. (2) Seizure-like activity: (3) HTN (hypertension): (4) GERD (gastroesophageal reflux disease): (5) Prediabetes: (6) Hyperlipidemia: (7) DTs (delirium tremens): (8) Elevated LFTs: Admission and Anticipated Discharge Date Admission Date: December 10, 2019 Supervising Physician Co-Signing Physician Notes And on ICU multidisciplinary rounds with ICU bedside nurse continuedPatient seen and examined. EMR reviewed. Discussed with family practice resident on rounds. Agree with assessment and plan as noted above. The patient continues to be monitored for alcohol withdrawal. He is been initiated on Precedex and continues to receive intermittent Geodon as well as Ativan. He had one episode of agitation this morning which responded to Geodon and increased Ativan. Wean Precedex as tolerated. Continue high-dose thiamine and folate. Electrolyte replacement protocols are initiated. Continue ICU level care pending improvement in patient's mental status Subjective Patient sleeping at time of interview. Overnight had been overtly aggressive with hospital and nursing staff and was placed on 4 point restraints shortly after. Review of Systems Review of Systems: Unobtainable due to cognitive status and Unobtainable due to reduced consciousness Physical Exam Constitutional: well developed and well nourished Currently sleeping, though agitated and combative when awoken Eyes: Patient sleeping, did not examine ENMT: external ear and nose normal, oropharynx normal Neck: trachea midline, no thyromegaly normal visual inspection Respiratory: normal respiratory effort, lungs clear to auscultation Cardiovascular: RRR, no murmur, no edema Gastrointestinal (Abdomen): normal bowel sounds, soft, nontender, no hepatosplenomegaly Musculoskeletal: no cyanosis or clubbing, extremities motor strength 5/5 Soft restraints on all limbs Skin: Abrasion of the L lateral forehead with scabbing. No drainage or bloody discharge. Neurologic: moves all extremities and + confused Speech / Cognition: + abnormal speech and + abnormal cognition Psychiatric: Orientation: + guarded; + not oriented to person, + not oriented to place, + not oriented to time and + uncooperative Eye Contact: + poor eye contact Affect: + irritable affect Genitourinary: chow catheter in place Results & Data Results & Data ([facility]) Vital Signs (Past 12 Hours) Vital Signs Temp Pulse Resp BP Pulse Ox Pulse Ox 12/13/19 06:00 77 16 139/88 100 12/13/19 05:30 76 15 142/92 H 99 12/13/19 05:00 81 15 99 12/13/19 04:30 86 14 99 12/13/19 04:00 36.6 C 83 16 158/94 H 99 12/13/19 03:30 68 16 100 12/13/19 03:00 76 17 128/90 94 12/13/19 02:30 67 19 97 12/13/19 02:00 65 18 132/78 97 12/13/19 01:30 66 16 96 12/13/19 01:00 68 14 142/91 H 95 12/13/19 00:30 77 17 95 12/13/19 00:00 37.1 C 67 16 144/93 H 97 12/12/19 23:30 68 19 97 12/12/19 23:00 68 15 130/87 97 12/12/19 22:30 80 17 130/88 95 12/12/19 22:00 74 19 130/89 96 12/12/19 21:30 70 16 97 12/12/19 21:00 69 20 124/84 97 12/12/19 20:30 71 21 97 12/12/19 20:00 37.4 C 71 20 121/84 96 96 12/12/19 19:30 70 20 96 12/12/19 19:00 70 18 127/78 96 Resident Activity Tracking Resident Involvement: Resident Care Provided Care Provided: Adult Hospital Medicine
[2019-12-13 06:54] LABS: Mean Corpuscular Hemoglobin 34.1 pg (25-34); Mean Corpuscular Hgb Conc 33.3 g/dL (32-36); Mean Corpuscular Volume 102.3 fL (80-100); Mean Platelet Volume 11.3 fL (7.4-10.4); Platelet Count 117 K/uL (130-400); RDW Coefficient of Variation 13.2 % (11.5-14.5); Red Blood Count 3.52 M/uL (4.7-6.1); White Blood Count 7.34 K/uL (4.8-10.8)
[2019-12-13 07:30] LABS: Albumin Level 3.2 gm/dl (3.4-5.0); BUN Creatinine Ratio 10.6 (10-20); Creatinine Clr Calc Pharmacy 147.5 ml/min; Est GFR (African American) 133.2; Est GFR (Non-African American) 114.9; Magnesium 2.2 mg/dl (1.8-2.4); Potassium 3.7 mmol/L (3.5-5.1)
[2019-12-13 07:34] LABS: Albumin Globulin Ratio 0.7 (0.9-2); Bilirubin,Total 0.9 mg/dl (0.2-1); Globulin 4.4 gm/dl (2.5-4.0); Phosphorus 1.9 mg/dl (2.5-4.9); Total Protein 7.6 gm/dl (6.4-8.2)
[2019-12-13] MEDS: THIAMINE HCL 100 MG in SYRINGE 9 ML IV SCH ×3 (08:44→22:41)
[2019-12-13] MEDS: NEOMYCIN/POLYMYX/BACITR OINT 15 GM TUBE EXT SCH ×2 (08:44→22:43)
[2019-12-13] MEDS: ENOXAPARIN INJ 40 MG/0.4 ML SYR SQ SCH (08:44)
--- NOTE | 2019-12-13 10:19 | Billing Data ---
Date of Service December 13, 2019 Coding Level of Care Code 78986 Subseq Hosp Care Lvl 2
[2019-12-13] MEDS ORDERED: POTASSIUM PHOSPHATE 21 MMOL in SODIUM CHLORIDE 0.9% 500 ML IV ONE (10:30)
[2019-12-13] MEDS: DEXMEDETOMIDINE HCL 400 MCG in 0.9 % SODIUM CHLORIDE 96 ML IV SCH ×3 (10:37→22:42)
[2019-12-13] MEDS: ZIPRASIDONE 20 MG/ML SDV IM PRN (12:26)
[2019-12-13] MEDS ORDERED: WATER, STERILE FOR INJ 20 ML VIAL ONE (12:28)
[2019-12-13] MEDS: LOSARTAN POTASSIUM 50 MG TAB PO SCH (12:40)
[2019-12-13] MEDS: PANTOprazole 40 MG TAB PO SCH (12:40)
[2019-12-13] MEDS: FOLIC ACID 1 MG TAB PO SCH (12:40)
[2019-12-13] MEDS: CYANOCOBALAMIN 500 MCG TABLET (VITAMIN B-12) PO SCH (12:40)
[2019-12-13] MEDS ORDERED: GABAPENTIN 600 MG TAB PO SCH (16:00)
[2019-12-13] MEDS: ICU PROTOCOL FOR HYPERGLYCEMIA SCH (17:51)
--- NOTE | 2019-12-13 22:46 | Hospitalist Progress Note ---
Date of Service December 13, 2019 Assessment & Plan (1) Seizure-like activity: This is a 39-year-old male who has significant past medical history of HTN, HLD, GERD, prediabetes who presents to ED after sustaining seizure-like activity prior to arrival. Seizure like activity 2/2 alcohol withdrawal, and in the setting of electrolyte abnormalities No prior hx of seizure in past admitted to PCU initially, currently in ICU, on Precedex, IV Ativan, also required Geodon started keppra 500mg bid by admitting provider, discussed with neurology, Keppra discontinued as seizure seems to be secondary to alcohol withdrawal EEG ordered - unremarkable Neurology consulted - appreciate their input Patient will not be able to drive for 6 months, patient aware tx for alcohol withdrawal as below (2) Alcohol withdrawal: encourage alcohol abstinence Gave Banana Bag x 1 on admission daily thiamine and folic acid Librium taper, PRN lorazepam for active withdrawal, patient was also loaded with gabapentin, however he had severe withdrawal and required admission to ICU Currently on IV Precedex, IV Ativan, also required Geodon Continues to be aggressive and agitated, required 4 point restraints seizure precautions Patient in need of alcohol rehab after discharge (3) Hypomagnesemia: received 2g mag sulfate in ED cont. to monitor and replete as needed (4) Elevated LFTs: likely in setting of ETOH use, prior elevated lfts in outpt lab last US abd 04/2017 revealed mild hepatomegaly with diffuse increased echogenicity of liver hold statin, obtain US of abd RUQ Ultrasound showed some sludge and polyp in gallbladder, recommend to follow-up after his active alcohol withdrawal (5) Prediabetes: Pt with hyperglycemia, BSG 249 Last A1c 6.2 12/12/2018 Obtained Hgb A1c 6.3% Accu-Cheks, NovoLog per protocol (6) HTN (hypertension): BP elevated in setting of withdrawal continue losartan but hold HCTZ monitor (7) Hyperlipidemia: hold statin in setting of elevated LFTS Full Code Disposition: ICU Follow up: PCP Dr. Langford upon discharge Admission and Anticipated Discharge Date Admission Date: December 10, 2019 Subjective Patient lying in bed in no distress. Pt' s mother at the bedside. Overnight pt was aggressive with staff and required 4 point restraints. Unable to obtain full ros d/t sedation Review of Systems Review of Systems: Unobtainable due to cognitive status Physical Exam Physical Exam: Constitutional: WD/WN, male, lying in bed in NAD, sedated Head: Normocephalic, abrasion to left and lateral forehead with erythematous wound bed, no drainage Eyes: PERRL, conjunctivae normal, anicteric sclerae ENMT: external ear and nose normal, oropharynx normal Neck: trachea midline, no thyromegaly normal visual inspection Respiratory: normal respiratory effort, lungs clear to auscultation, no wheeze, rales, rhonchi. Normal insp/exp effort, no accessory muscle use Cardiovascular: rrr, no murmur, no edema Vessels: no JVD or carotid bruit Chest: normal inspection of chest Abdomen: normal bowel sounds, nontender, mildly distended Musculoskeletal: no cyanosis or clubbing, moves extremities spontaneously Skin: no rashes, warm and dry normal turgor Neurologic: PERRL, no face palsy, moves all extremities Psychiatric: Currently patient is sedated, unable to answer questions Results & Data Results & Data ([facility]) Vital Signs (Past 12 Hours) Vital Signs Pulse BP Pulse Ox 12/13/19 18:00 67 98 12/13/19 17:30 73 99 12/13/19 17:05 71 130/88 98 12/13/19 17:00 76 98 12/13/19 16:30 71 99 12/13/19 16:05 71 124/80 97 12/13/19 16:00 71 98 12/13/19 15:30 70 97 12/13/19 15:05 70 121/76 98 12/13/19 15:00 69 98 12/13/19 14:30 69 98 12/13/19 14:04 75 128/80 97 12/13/19 14:00 70 98 12/13/19 13:30 72 96 12/13/19 13:06 73 97 12/13/19 13:05 73 126/72 97 12/13/19 13:00 71 98 12/13/19 12:30 75 97 12/13/19 12:05 76 139/83 96 12/13/19 12:00 80 96 12/13/19 11:30 78 96 12/13/19 11:05 82 150/73 H 96 12/13/19 11:00 85 97 Laboratory Results 12/13/19 12/13/19 12/13/19 Range/Units 16:30 11:38 06:28 WBC (4.8-10.8) K/uL RBC (4.7-6.1) M/uL Hgb (14.0-18.0) g/dL Hct (42-52) % MCV (80-100) fL MCH (25-34) pg MCHC (32-36) g/dL RDW Std Deviation (36.4-46.3) fL RDW Coeff of Cori (11.5-14.5) % Plt Count (130-400) K/uL MPV (7.4-10.4) fL Sodium (136-145) mmol/L Potassium (3.5-5.1) mmol/L Chloride (98-107) mmol/L Carbon Dioxide (21-32) mmol/L Anion Gap (3-11) BUN (7-18) mg/dl Creatinine (0.6-1.4) mg/dl Est Cr Clr Drug Dosing ml/min Est GFR ( Amer) Est GFR (Non-Af Amer) BUN/Creatinine Ratio (-20) Glucose (70-99) mg/dl POC Glucose 103 H 113 H 105 H (70-99) mg/dl Calcium (8.5-10.1) mg/dl Phosphorus (2.5-4.9) mg/dl Magnesium (1.8-2.4) mg/dl Total Bilirubin (0.2-1) mg/dl AST (15-37) U/L ALT (12-78) U/L Alkaline Phosphatase (45-117) U/L Total Protein (6.4-8.2) gm/dl Albumin (3.4-5.0) gm/dl Globulin (2.5-4.0) gm/dl Albumin/Globulin Ratio (0.9-2) 12/13/19 12/13/19 12/12/19 Range/Units 06:24 06:24 23:45 WBC 7.34 (4.8-10.8) K/uL RBC 3.52 L (4.7-6.1) M/uL Hgb 12.0 L (14.0-18.0) g/dL Hct 36.0 L (42-52) % MCV 102.3 H (80-100) fL MCH 34.1 H (25-34) pg MCHC 33.3 (32-36) g/dL RDW Std Deviation 49.0 H (36.4-46.3) fL RDW Coeff of Cori 13.2 (11.5-14.5) % Plt Count 117 L (130-400) K/uL MPV 11.3 H (7.4-10.4) fL Sodium 142 (136-145) mmol/L Potassium 3.7 (3.5-5.1) mmol/L Chloride 109 H (98-107) mmol/L Carbon Dioxide 27 (21-32) mmol/L Anion Gap 6.0 (3-11) BUN 8 (7-18) mg/dl Creatinine 0.76 (0.6-1.4) mg/dl Est Cr Clr Drug Dosing 147.5 ml/min Est GFR ( Amer) 133.2 Est GFR (Non-Af Amer) 114.9 BUN/Creatinine Ratio 10.6 (10-20) Glucose 105 H (70-99) mg/dl POC Glucose 110 H (70-99) mg/dl Calcium 8.0 L (8.5-10.1) mg/dl Phosphorus 1.9 L D (2.5-4.9) mg/dl Magnesium 2.2 (1.8-2.4) mg/dl Total Bilirubin 0.9 (0.2-1) mg/dl AST 154 H (15-37) U/L ALT 154 H (12-78) U/L Alkaline Phosphatase 88 (45-117) U/L Total Protein 7.6 (6.4-8.2) gm/dl Albumin 3.2 L (3.4-5.0) gm/dl Globulin 4.4 H (2.5-4.0) gm/dl Albumin/Globulin Ratio 0.7 L (0.9-2) Medications Administered Current Inpatient Medications Al Hydrox/Mg Hydrox/Simethicone (Aluminum/Magnesium Susp 30 Ml Udc) 15 ml PO Q4H PRN PRN Reason: Dyspepsia Stop: 01/09/20 18:48 Cyanocobalamin (Cyanocobalamin 500 Mcg Tablet (Vitamin B-12)) 1,000 mcg PO QAM [facility] Stop: 01/11/20 08:59 Last Admin: 12/13/19 12:40 Dose: Not Given Documented by: Enoxaparin Sodium (Enoxaparin Inj 40 Mg/0.4 Ml Syr) 40 mg SQ DAILY [facility] Stop: 01/11/20 08:59 Last Admin: 12/13/19 08:44 Dose: 40 mg Documented by: Folic Acid (Folic Acid 1 Mg Tab) 1 mg PO QAM [facility] Stop: 01/09/20 19:59 Last Admin: 12/13/19 12:40 Dose: Not Given Documented by: Glucagon (Glucagon For Inj 1 Mg Vial) 1 mg SQ UD PRN; Protocol PRN Reason: Hypoglycemia Protocol Stop: 01/09/20 18:48 Glucose (Glucose 10 Tabs/Tube) 4 - 8 tabs PO UD PRN; Protocol PRN Reason: Hypoglycemia Protocol Stop: 01/09/20 18:48 Glucose (Glucose 40% Gel 15 Gm Tube) 15 - 30 gm PO UD PRN; Protocol PRN Reason: Hypoglycemia Protocol Stop: 01/09/20 18:48 Lorazepam (Ativan) 4 mg in 8 mls @ 4 mls/min IV Q4H [facility] Stop: 01/10/20 21:59 Last Admin: 12/13/19 22:01 Dose: 4 mls/min Documented by: Lorazepam (Ativan) 2 mg in 4 mls @ 4 mls/min IV Q2H PRN PRN Reason: RASS goal -1 Stop: 01/10/20 19:44 Lorazepam (Ativan) 1 mg in 2 mls @ 2 mls/min IV UD PRN; Protocol PRN Reason: EtOH Withdrawl AWSS Score 6,7 Stop: 01/10/20 19:44 Lorazepam (Ativan) 2 mg in 4 mls @ 4 mls/min IV UD PRN; Protocol PRN Reason: EtOH Withdrawl AWSS Score 8,9 Stop: 01/10/20 19:44 Lorazepam (Ativan) 3 mg in 6 mls @ 4 mls/min IV ONCE PRN; Protocol PRN Reason: EtOH Withdrawl AWSS Score >=10 Stop: 01/10/20 19:44 Last Admin: 12/12/19 07:51 Dose: 4 mls/min Documented by: Parenteral Electrolytes (Normosol-R) 1,000 mls @ 80 mls/hr IV .[id number] [facility] Stop: 01/10/20 23:44 Last Admin: 12/13/19 12:42 Dose: 80 mls/hr Documented by: Thiamine HCl 100 mg/ Syringe 10 mls @ 2 mls/min IV TID [facility] Stop: 12/15/19 13:59 Last Admin: 12/13/19 14:19 Dose: 2 mls/min Documented by: Dexmedetomidine HCl 400 mcg/ (Sodium Chloride) 100 mls @ 27.06 mls/hr IV .Q3H42M [facility]; Protocol Stop: 12/17/19 10:29 Last Admin: 12/13/19 14:12 Dose: 1.1 mcg/kg/hr, 27.1 mls/hr Documented by: Insulin Aspart (Insulin Aspart 100 Units/Ml 3 Ml Pen) 0 units SC Q6H [facility] Stop: 01/11/20 17:59 Last Admin: 12/13/19 12:38 Dose: Not Given Documented by: Losartan Potassium (Losartan Potassium 50 Mg Tab) 100 mg PO QAM [facility] Stop: 01/10/20 08:59 Last Admin: 12/13/19 12:40 Dose: Not Given Documented by: Magnesium Hydroxide (Magnesium Hydroxide Susp 30 Ml Udc) 30 ml PO Q12H PRN PRN Reason: Constipation Stop: 01/09/20 18:48 Miscellaneous (Carbohydrates For Hypoglycemia ) 15 - 30 gm PO UD PRN PRN Reason: Hypoglycemia Protocol Stop: 01/09/20 18:48 Miscellaneous (Icu Electrolyte Replacement Protocol) 1 ea N/A UD PRN PRN Reason: for e-lyte repletion Stop: 12/18/19 19:44 Neomycin/Polymyxin/Bacitracin (Neomycin/Polymyx/Bacitr Oint 15 Gm Tube) 1 appln EXT BID [facility] Stop: 01/09/20 20:59 Last Admin: 12/13/19 08:44 Dose: 1 appln Documented by: Nortriptyline HCl (Nortriptyline Hcl 25 Mg Cap) 75 mg PO HS [facility] Stop: 01/09/20 20:59 Last Admin: 12/11/19 20:29 Dose: Not Given Documented by: Ondansetron HCl (Ondansetron Inj 2 Mg/Ml 2 Ml Vial) 4 mg IV Q6H PRN PRN Reason: Nausea Stop: 01/09/20 18:48 Pantoprazole Sodium (Pantoprazole 40 Mg Tab) 40 mg PO DAILY [facility] Stop: 01/10/20 08:59 Last Admin: 12/13/19 12:40 Dose: Not Given Documented by: Polyethylene Glycol (Polyethylene (Miralax) 17 Gm Pack) 17 gm PO DAILY PRN PRN Reason: Constipation Stop: 01/09/20 18:48 Thiamine HCl (Thiamine Hcl 100 Mg Tab) 100 mg PO QAM [facility] Stop: 01/09/20 19:59 Last Admin: 12/12/19 10:22 Dose: Not Given Documented by: Ziprasidone (Ziprasidone 20 Mg/Ml Sdv) 10 mg IM Q12H PRN PRN Reason: Agitation Stop: 01/10/20 18:30 Last Admin: 12/13/19 12:26 Dose: 10 mg Documented by:
[2019-12-14] MEDS: INSULIN ASPART 100 UNITS/ML 3 ML PEN SC SCH ×4 (00:10→18:15)
[2019-12-14] MEDS: ZIPRASIDONE 20 MG/ML SDV IM PRN ×2 (00:25→12:59)
[2019-12-14] MEDS: ACETAMINOPHEN 325 MG SUPP PR PRN ×2 (00:30→13:11)
[2019-12-14] MEDS: DEXMEDETOMIDINE HCL 200 MCG in SODIUM CHLORIDE 0.9% 48 ML IV SCH ×2 (01:01→01:02)
[2019-12-14] MEDS: LORazepam 4 MG/8 ML VIAL IV SCH ×6 (01:03→21:50)
[2019-12-14] MEDS: NORMOSOL-R 1,000 ML IV SCH ×2 (01:43→13:33)
[2019-12-14] MEDS: DEXMEDETOMIDINE HCL 400 MCG in 0.9 % SODIUM CHLORIDE 96 ML IV SCH ×5 (02:34→22:52)
[2019-12-14 04:54] LABS: Hematocrit (blood only) 35.2 % (42-52); Hemoglobin 11.7 g/dL (14.0-18.0); Mean Corpuscular Hemoglobin 33.6 pg (25-34); Mean Corpuscular Hgb Conc 33.2 g/dL (32-36); Mean Corpuscular Volume 101.1 fL (80-100); Mean Platelet Volume 10.9 fL (7.4-10.4); Platelet Count 131 K/uL (130-400); RDW Standard Deviation 47.3 fL (36.4-46.3); Red Blood Count 3.48 M/uL (4.7-6.1); White Blood Count 6.42 K/uL (4.8-10.8)
[2019-12-14 05:25] LABS: BUN Creatinine Ratio 11.8 (10-20); Calcium 7.5 mg/dl (8.5-10.1); Creatinine Clr Calc Pharmacy 162.4 ml/min; Est GFR (African American) 138.6; Est GFR (Non-African American) 119.6; Potassium 3.4 mmol/L (3.5-5.1)
[2019-12-14 05:30] LABS: Albumin Globulin Ratio 0.7 (0.9-2); Bilirubin,Total 0.7 mg/dl (0.2-1); Globulin 4.2 gm/dl (2.5-4.0); Phosphorus 3.2 mg/dl (2.5-4.9); Total Protein 7.2 gm/dl (6.4-8.2)
[2019-12-14] MEDS ORDERED: MAGNESIUM SULFATE / D5W 1 GM/100 ML BAG IV ONE (06:21)
[2019-12-14] MEDS: POTASSIUM CHLORIDE / WTR 10 MEQ/100 ML PLCT IV SCH ×4 (06:45→10:30)
--- NOTE | 2019-12-14 08:00 | Hospitalist Progress Note ---
Date of Service December 14, 2019 Assessment & Plan (1) Seizure-like activity: This is a 39-year-old male who has significant past medical history of HTN, HLD, GERD, prediabetes who presents to ED after sustaining seizure-like activity prior to arrival. Seizure like activity 2/2 alcohol withdrawal, and in the setting of electrolyte abnormalities No prior hx of seizure in past admitted to PCU initially, currently in ICU, on Precedex, IV Ativan, also required Geodon started keppra 500mg bid by admitting provider, discussed with neurology, Keppra discontinued as seizure seems to be secondary to alcohol withdrawal EEG ordered - unremarkable Neurology consulted - appreciate their input Patient will not be able to drive for 6 months, patient aware tx for alcohol withdrawal as below (2) Alcohol withdrawal: encourage alcohol abstinence Gave Banana Bag x 1 on admission daily thiamine and folic acid Librium taper, PRN lorazepam for active withdrawal, patient was also loaded with gabapentin, however he had severe withdrawal and required admission to ICU Currently on IV Precedex, IV Ativan, also required Geodon Continues to be aggressive and agitated, required 4 point restraints seizure precautions Patient in need of alcohol rehab after discharge Fever -Unclear if this is secondary to infectious process -Patient has been sedated/obtunded, possible risk for aspiration, Dixon catheter placed when admitted to ICU, will also check skin around IV lines for any signs of infection/erythema -We will obtain blood cultures, UA/urine culture, chest x-ray -We will start empiric antibiotic - zosyn (3) Hypomagnesemia: received 2g mag sulfate in ED cont. to monitor and replete as needed Hypokalemia -Replete and monitor (4) Elevated LFTs: likely in setting of ETOH use, prior elevated lfts in outpt lab last US abd 04/2017 revealed mild hepatomegaly with diffuse increased echogenicity of liver hold statin, obtain US of abd RUQ Ultrasound showed some sludge and polyp in gallbladder, recommend to follow-up after his active alcohol withdrawal LFTs trending down (5) Prediabetes: Pt with hyperglycemia, BSG 249 on admission Last A1c 6.2 12/12/2018 Obtained Hgb A1c 6.3% Accu-Cheks, NovoLog per protocol (6) HTN (hypertension): BP elevated in setting of withdrawal continue losartan but hold HCTZ monitor (7) Hyperlipidemia: hold statin in setting of elevated LFTS Full Code Disposition: ICU Follow up: PCP Dr. Langford upon discharge Admission and Anticipated Discharge Date Admission Date: December 10, 2019 Subjective Patient is lying in bed, sedated and restrained. Patient's is currently at the bedside and so is a sitter. Patient spiked fever 38.5 C around midnight however temperature then normal/ close to normal. Patient spiked fever 39.6 C again this afternoon and then persistently febrile despite Tylenol provided by nursing staff. We will obtain blood culture, UA/urine culture, chest x-ray. Will start empiric Zosyn, and provide IV ofirmev. Review of Systems Review of Systems: Unobtainable due to cognitive status Physical Exam Physical Exam: Constitutional: WD/WN, male, lying in bed in NAD, sedated Head: Normocephalic, abrasion to left and lateral forehead with erythematous wound bed, no drainage Eyes: PERRL, conjunctivae normal, anicteric sclerae ENMT: external ear and nose normal, oropharynx normal Neck: trachea midline, no thyromegaly normal visual inspection Respiratory: normal respiratory effort, lungs clear to auscultation, no wheeze, +rhonchi. Normal insp/exp effort, no accessory muscle use Cardiovascular: rrr, no murmur, no edema Vessels: no JVD or carotid bruit Chest: normal inspection of chest Abdomen: normal bowel sounds, nontender, mildly distended Musculoskeletal: no cyanosis or clubbing, moves extremities spontaneously Skin: no rashes, warm and dry normal turgor Neurologic: PERRL, no face palsy, moves all extremities Psychiatric: Currently patient is sedated, unable to answer questions Results & Data Results & Data ([facility]) Vital Signs (Past 12 Hours) Vital Signs Temp Pulse BP Pulse Ox Pulse Ox 12/14/19 06:05 36.9 C 64 139/85 100 12/14/19 06:00 36.9 C 64 100 12/14/19 05:05 37.0 C 65 112/80 98 12/14/19 05:00 37.1 C 65 98 12/14/19 04:05 69 126/78 97 12/14/19 04:00 68 98 12/14/19 03:05 72 121/81 97 12/14/19 03:00 71 96 12/14/19 02:05 71 136/84 98 12/14/19 02:00 72 91 12/14/19 01:05 83 143/86 H 95 12/14/19 01:00 76 93 12/14/19 00:05 73 145/92 H 98 12/14/19 00:00 38.5 C H 81 100 12/13/19 23:06 82 148/77 H 99 12/13/19 23:00 78 100 12/13/19 22:05 77 153/87 H 97 12/13/19 22:00 81 98 12/13/19 21:06 77 152/91 H 99 12/13/19 21:00 76 96 12/13/19 20:05 80 144/95 H 100 12/13/19 20:00 37.4 C 76 98 98 Laboratory Results 12/14/19 12/14/19 12/14/19 Range/Units 11:23 09:07 05:53 WBC (4.8-10.8) K/uL RBC (4.7-6.1) M/uL Hgb (14.0-18.0) g/dL Hct (42-52) % MCV (80-100) fL MCH (25-34) pg MCHC (32-36) g/dL RDW Std Deviation (36.4-46.3) fL RDW Coeff of Cori (11.5-14.5) % Plt Count (130-400) K/uL MPV (7.4-10.4) fL Sodium (136-145) mmol/L Potassium (3.5-5.1) mmol/L Chloride (98-107) mmol/L Carbon Dioxide (21-32) mmol/L Anion Gap (3-11) BUN (7-18) mg/dl Creatinine (0.6-1.4) mg/dl Est Cr Clr Drug Dosing ml/min Est GFR ( Amer) Est GFR (Non-Af Amer) BUN/Creatinine Ratio (10-20) Glucose (70-99) mg/dl POC Glucose 103 H 111 H (70-99) mg/dl Calcium (8.5-10.1) mg/dl Phosphorus (2.5-4.9) mg/dl Magnesium (1.8-2.4) mg/dl Total Bilirubin (0.2-1) mg/dl AST (15-37) U/L ALT (12-78) U/L Alkaline Phosphatase (45-117) U/L Ammonia < 10.0 L (11-32) umol/L Total Protein (6.4-8.2) gm/dl Albumin (3.4-5.0) gm/dl Globulin (2.5-4.0) gm/dl Albumin/Globulin Ratio (0.9-2) 12/14/19 12/14/19 12/14/19 Range/Units 04:31 04:31 00:01 WBC 6.42 (4.8-10.8) K/uL RBC 3.48 L (4.7-6.1) M/uL Hgb 11.7 L (14.0-18.0) g/dL Hct 35.2 L (42-52) % MCV 101.1 H (80-100) fL MCH 33.6 (25-34) pg MCHC 33.2 (32-36) g/dL RDW Std Deviation 47.3 H (36.4-46.3) fL RDW Coeff of Cori 13.0 (11.5-14.5) % Plt Count 131 (130-400) K/uL MPV 10.9 H (7.4-10.4) fL Sodium 142 (136-145) mmol/L Potassium 3.4 L (3.5-5.1) mmol/L Chloride 110 H (98-107) mmol/L Carbon Dioxide 28 (21-32) mmol/L Anion Gap 4.0 (3-11) BUN 8 (7-18) mg/dl Creatinine 0.69 (0.6-1.4) mg/dl Est Cr Clr Drug Dosing 162.4 ml/min Est GFR ( Amer) 138.6 Est GFR (Non-Af Amer) 119.6 BUN/Creatinine Ratio 11.8 (10-20) Glucose 107 H (70-99) mg/dl POC Glucose 108 H (70-99) mg/dl Calcium 7.5 L (8.5-10.1) mg/dl Phosphorus 3.2 D (2.5-4.9) mg/dl Magnesium 2.0 (1.8-2.4) mg/dl Total Bilirubin 0.7 (0.2-1) mg/dl AST 99 H (15-37) U/L ALT 113 H (12-78) U/L Alkaline Phosphatase 82 (45-117) U/L Ammonia (11-32) umol/L Total Protein 7.2 (6.4-8.2) gm/dl Albumin 3.0 L (3.4-5.0) gm/dl Globulin 4.2 H (2.5-4.0) gm/dl Albumin/Globulin Ratio 0.7 L (0.9-2) 12/13/19 12/13/19 Range/Units 16:30 11:38 WBC (4.8-10.8) K/uL RBC (4.7-6.1) M/uL Hgb (14.0-18.0) g/dL Hct (42-52) % MCV (80-100) fL MCH (25-34) pg MCHC (32-36) g/dL RDW Std Deviation (36.4-46.3) fL RDW Coeff of Cori (11.5-14.5) % Plt Count (130-400) K/uL MPV (7.4-10.4) fL Sodium (136-145) mmol/L Potassium (3.5-5.1) mmol/L Chloride (98-107) mmol/L Carbon Dioxide (21-32) mmol/L Anion Gap (3-11) BUN (7-18) mg/dl Creatinine (0.6-1.4) mg/dl Est Cr Clr Drug Dosing ml/min Est GFR ( Amer) Est GFR (Non-Af Amer) BUN/Creatinine Ratio (10-20) Glucose (70-99) mg/dl POC Glucose 103 H 113 H (70-99) mg/dl Calcium (8.5-10.1) mg/dl Phosphorus (2.5-4.9) mg/dl Magnesium (1.8-2.4) mg/dl Total Bilirubin (0.2-1) mg/dl AST (15-37) U/L ALT (12-78) U/L Alkaline Phosphatase (45-117) U/L Ammonia (11-32) umol/L Total Protein (6.4-8.2) gm/dl Albumin (3.4-5.0) gm/dl Globulin (2.5-4.0) gm/dl Albumin/Globulin Ratio (0.9-2) Medications Administered Current Inpatient Medications Acetaminophen (Acetaminophen 325 Mg Supp) 325 mg TX Q4H PRN PRN Reason: Fever Stop: 01/12/20 23:57 Last Admin: 12/14/19 00:30 Dose: 325 mg Documented by: Al Hydrox/Mg Hydrox/Simethicone (Aluminum/Magnesium Susp 30 Ml Udc) 15 ml PO Q4H PRN PRN Reason: Dyspepsia Stop: 01/09/20 18:48 Cyanocobalamin (Cyanocobalamin 500 Mcg Tablet (Vitamin B-12)) 1,000 mcg PO QAM [facility] Stop: 01/11/20 08:59 Last Admin: 12/13/19 12:40 Dose: Not Given Documented by: Enoxaparin Sodium (Enoxaparin Inj 40 Mg/0.4 Ml Syr) 40 mg SQ DAILY [facility] Stop: 01/11/20 08:59 Last Admin: 12/13/19 08:44 Dose: 40 mg Documented by: Folic Acid (Folic Acid 1 Mg Tab) 1 mg PO QAM [facility] Stop: 01/09/20 19:59 Last Admin: 12/13/19 12:40 Dose: Not Given Documented by: Glucagon (Glucagon For Inj 1 Mg Vial) 1 mg SQ UD PRN; Protocol PRN Reason: Hypoglycemia Protocol Stop: 01/09/20 18:48 Glucose (Glucose 10 Tabs/Tube) 4 - 8 tabs PO UD PRN; Protocol PRN Reason: Hypoglycemia Protocol Stop: 01/09/20 18:48 Glucose (Glucose 40% Gel 15 Gm Tube) 15 - 30 gm PO UD PRN; Protocol PRN Reason: Hypoglycemia Protocol Stop: 01/09/20 18:48 Lorazepam (Ativan) 4 mg in 8 mls @ 4 mls/min IV Q4H [facility] Stop: 01/10/20 21:59 Last Admin: 12/14/19 05:59 Dose: 4 mls/min Documented by: Lorazepam (Ativan) 2 mg in 4 mls @ 4 mls/min IV Q2H PRN PRN Reason: RASS goal -1 Stop: 01/10/20 19:44 Lorazepam (Ativan) 1 mg in 2 mls @ 2 mls/min IV UD PRN; Protocol PRN Reason: EtOH Withdrawl AWSS Score 6,7 Stop: 01/10/20 19:44 Lorazepam (Ativan) 2 mg in 4 mls @ 4 mls/min IV UD PRN; Protocol PRN Reason: EtOH Withdrawl AWSS Score 8,9 Stop: 01/10/20 19:44 Lorazepam (Ativan) 3 mg in 6 mls @ 4 mls/min IV ONCE PRN; Protocol PRN Reason: EtOH Withdrawl AWSS Score >=10 Stop: 01/10/20 19:44 Last Admin: 12/12/19 07:51 Dose: 4 mls/min Documented by: Parenteral Electrolytes (Normosol-R) 1,000 mls @ 80 mls/hr IV .[id number] [facility] Stop: 01/10/20 23:44 Last Admin: 12/14/19 01:43 Dose: 80 mls/hr Documented by: Thiamine HCl 100 mg/ Syringe 10 mls @ 2 mls/min IV TID [facility] Stop: 12/15/19 13:59 Last Admin: 12/13/19 22:41 Dose: 2 mls/min Documented by: Dexmedetomidine HCl 400 mcg/ (Sodium Chloride) 100 mls @ 27.06 mls/hr IV .Q3H42M [facility]; Protocol Stop: 12/17/19 10:29 Last Admin: 12/14/19 06:42 Dose: 1.1 mcg/kg/hr, 27.1 mls/hr Documented by: Potassium Chloride (K Cory / Wtr) 10 meq in 100 mls @ 100 mls/hr IV Q1H [facility] Stop: 12/14/19 10:19 Last Admin: 12/14/19 06:45 Dose: 100 mls/hr Documented by: Magnesium Sulfate/Dextrose (Magnesium Sulfate / D5w) 1 gm in 100 mls @ 50 mls/hr IV ONE ONE Stop: 12/14/19 08:20 Last Admin: 12/14/19 06:45 Dose: 50 mls/hr Documented by: Insulin Aspart (Insulin Aspart 100 Units/Ml 3 Ml Pen) 0 units SC Q6H [facility] Stop: 01/11/20 17:59 Last Admin: 12/14/19 05:58 Dose: Not Given Documented by: Losartan Potassium (Losartan Potassium 50 Mg Tab) 100 mg PO QAM [facility] Stop: 01/10/20 08:59 Last Admin: 12/13/19 12:40 Dose: Not Given Documented by: Magnesium Hydroxide (Magnesium Hydroxide Susp 30 Ml Udc) 30 ml PO Q12H PRN PRN Reason: Constipation Stop: 01/09/20 18:48 Miscellaneous (Carbohydrates For Hypoglycemia ) 15 - 30 gm PO UD PRN PRN Reason: Hypoglycemia Protocol Stop: 01/09/20 18:48 Miscellaneous (Icu Electrolyte Replacement Protocol) 1 ea N/A UD PRN PRN Reason: for e-lyte repletion Stop: 12/18/19 19:44 Neomycin/Polymyxin/Bacitracin (Neomycin/Polymyx/Bacitr Oint 15 Gm Tube) 1 appln EXT BID [facility] Stop: 01/09/20 20:59 Last Admin: 12/13/19 22:43 Dose: 1 appln Documented by: Nortriptyline HCl (Nortriptyline Hcl 25 Mg Cap) 75 mg PO HS [facility] Stop: 01/09/20 20:59 Last Admin: 12/11/19 20:29 Dose: Not Given Documented by: Ondansetron HCl (Ondansetron Inj 2 Mg/Ml 2 Ml Vial) 4 mg IV Q6H PRN PRN Reason: Nausea Stop: 01/09/20 18:48 Pantoprazole Sodium (Pantoprazole 40 Mg Tab) 40 mg PO DAILY [facility] Stop: 01/10/20 08:59 Last Admin: 12/13/19 12:40 Dose: Not Given Documented by: Polyethylene Glycol (Polyethylene (Miralax) 17 Gm Pack) 17 gm PO DAILY PRN PRN Reason: Constipation Stop: 01/09/20 18:48 Thiamine HCl (Thiamine Hcl 100 Mg Tab) 100 mg PO QAM [facility] Stop: 01/09/20 19:59 Last Admin: 12/12/19 10:22 Dose: Not Given Documented by: Ziprasidone (Ziprasidone 20 Mg/Ml Sdv) 10 mg IM Q12H PRN PRN Reason: Agitation Stop: 01/10/20 18:30 Last Admin: 12/14/19 00:25 Dose: 10 mg Documented by:
[2019-12-14] MEDS: LOSARTAN POTASSIUM 50 MG TAB PO SCH (08:10)
[2019-12-14] MEDS: FOLIC ACID 1 MG TAB PO SCH (08:10)
[2019-12-14] MEDS: PANTOprazole 40 MG TAB PO SCH (08:10)
[2019-12-14] MEDS: CYANOCOBALAMIN 500 MCG TABLET (VITAMIN B-12) PO SCH (08:11)
[2019-12-14] MEDS: ENOXAPARIN INJ 40 MG/0.4 ML SYR SQ SCH (08:31)
[2019-12-14] MEDS: NEOMYCIN/POLYMYX/BACITR OINT 15 GM TUBE EXT SCH ×2 (08:32→21:50)
[2019-12-14] MEDS: THIAMINE HCL 100 MG in SYRINGE 9 ML IV SCH ×3 (08:33→21:50)
--- NOTE | 2019-12-14 10:17 | Critical Care Progress Note ---
Date of Service December 14, 2019 Assessment & Plan (1) Alcohol withdrawal: Impression: 39-year-old male with a known history of alcohol abuse admitted with seizure-like activity felt to be due to alcohol withdrawal. He is now developed increasing agitation. Attributed to alcohol withdrawal/delirium tremens. Possible the patient may have had some mild concussion also contributing when he fell and hit his head. Recommendations: 1. Alcohol withdrawal: Continue Ativan scheduled 4 mg every 4 hours as well as symptom dosed. Wean Precedex as tolerated. Will use Geodon 10 mg IM or 5 mg IV as needed for agitation. Continue high-dose thiamine and folate. Electrolyte replacement protocols. Continue restraints as needed to protect patient and staff 2. Elevation in LFTs: They appear to be decreasing compared to admission. This is likely secondary to alcohol use. We will continue to trend. 3. Glycemic control per protocol. DVT and GI prophylaxis will be continued. Advance diet as tolerated. We will observe in the ICU pending improvement in the patient's level of deliri um. (2) Seizure-like activity: (3) HTN (hypertension): (4) GERD (gastroesophageal reflux disease): (5) Prediabetes: (6) Hyperlipidemia: (7) DTs (delirium tremens): (8) Elevated LFTs: Admission and Anticipated Discharge Date Admission Date: December 10, 2019 Subjective Patient is sedated and restrained. He does answer some simple questions but remains somewhat obtunded. Review of Systems Review of Systems: Unobtainable due to reduced consciousness Physical Exam Constitutional: well nourished; no acute distress Contusions on the right face are healing Neck: trachea midline, no thyromegaly Respiratory: normal respiratory effort, lungs clear to auscultation Cardiovascular: RRR, no murmur, no edema Gastrointestinal (Abdomen): normal bowel sounds, soft, nontender, no hepatosplenomegaly Musculoskeletal: Extremities: extremities normal to inspection Skin: no rashes, warm and dry Neurologic: Nonfocal exam Lymphatic: no cervical lymphadenopathy Results & Data Results & Data ([facility]) Vital Signs (Past 12 Hours) Vital Signs Temp Pulse BP Pulse Ox 12/14/19 08:06 37.7 C H 77 180/105 H 93 12/14/19 08:00 37.6 C H 78 94 12/14/19 07:45 37.4 C 79 96 12/14/19 07:30 37.3 C 78 100 10/10/20 07:15 37.3 C 67 99 12/14/19 07:05 37.2 C 73 150/98 H 100 12/14/19 07:00 37.2 C 80 100 12/14/19 06:05 36.9 C 64 139/85 100 12/14/19 06:00 36.9 C 64 100 12/14/19 05:05 37.0 C 65 112/80 98 12/14/19 05:00 37.1 C 65 98 12/14/19 04:05 69 126/78 97 12/14/19 04:00 68 98 12/14/19 03:05 72 121/81 97 12/14/19 03:00 71 96 12/14/19 02:05 71 136/84 98 12/14/19 02:00 72 91 12/14/19 01:05 83 143/86 H 95 12/14/19 01:00 76 93 12/14/19 00:05 73 145/92 H 98 12/14/19 00:00 38.5 C H 81 100 12/13/19 23:06 82 148/77 H 99 12/13/19 23:00 78 100 Laboratory Results 12/14/19 04:31 12/14/19 04:31 Diagnostic Findings No new imaging Coding Level of Care Code 58419 Subseq Hosp Care Lvl 2 Diagnoses Alcohol withdrawal F10.239 Seizure-like activity R56.9 HTN (hypertension) I10 GERD (gastroesophageal reflux disease) K21.9 Prediabetes R73.03 Hyperlipidemia E78.5 DTs (delirium tremens) F10.231 Elevated LFTs R79.89
[2019-12-14] MEDS ORDERED: CONSULT PHARMACY STA (17:04)
[2019-12-14] MEDS ORDERED: ACETAMINOPHEN 1,000 MG/100 ML VIAL IV PRN (17:06)
[2019-12-14] MEDS ORDERED: PIPERACILL/TAZOBAC CONSULT ACTIVE PRN (17:08)
[2019-12-14] MEDS ORDERED: PIPERACILLIN/TAZOBACTAM 4.5 GM in DEXTROSE 5% 100 ML IV ONE (17:15)
[2019-12-14] MEDS ORDERED: KETOROLAC TROMETHAMINE 15 MG/ML VIAL IV PRN (17:21)
[2019-12-14 17:43] LABS: Basophils # (auto) 0.02 K/uL (0-0.2); Basophils % (auto) 0.2 %; Eosinophils # (auto) 0.07 K/uL (0-0.5); Eosinophils % (auto) 0.9 %; Hematocrit (blood only) 36.7 % (42-52); Hemoglobin 12.2 g/dL (14.0-18.0); Immature Granulocytes # (auto) 0.02 K/uL (0.00-0.02); Immature Granulocytes % (auto) 0.2 %; Lymphocytes # (auto) 1.19 K/uL (1.2-3.4); Lymphocytes % (auto) 14.5 %; Mean Corpuscular Hemoglobin 33.4 pg (25-34); Mean Corpuscular Volume 100.5 fL (80-100); Mean Platelet Volume 11.1 fL (7.4-10.4); Monocytes # (auto) 1.53 K/uL (0.11-0.59); Monocytes % (auto) 18.6 %; Neutrophils # (auto) 5.38 K/uL (1.4-6.5); Neutrophils % (auto) 65.6 %; Platelet Count 143 K/uL (130-400); RDW Coefficient of Variation 12.9 % (11.5-14.5); RDW Standard Deviation 47.5 fL (36.4-46.3); Red Blood Count 3.65 M/uL (4.7-6.1); White Blood Count 8.21 K/uL (4.8-10.8)
[2019-12-14 17:45] LABS: Appearance Urine Clear (Clear); Bacteria Urine Automated Negative (Negative); Blood Urine 3+ (Negative); Color Urine Dark Yellow; Epithelial Cell Urine Auto 0-5 /lpf (0-5); Glucose Urine UA Negative (Negative); Ketones Urine 2+ (Negative); Leukocyte Esterase Urine 1+ (Negative); Nitrite Urine Negative (Negative); Protein Urine Trace (Negative); Specific Gravity Urine 1.025 (1.000-1.030); Urobilinogen Urine Negative (Negative)
[2019-12-14] MEDS ORDERED: VANCOMYCIN CONSULT ACTIVE PRN (17:45)
[2019-12-14 17:46] LABS: Mean Corpuscular Hgb Conc 33.2 g/dL (32-36)
[2019-12-14 17:47] LABS: Bilirubin Urine Negative (Negative); Ictotest Urine Negative (Negative)
[2019-12-14 18:00] LABS: BUN Creatinine Ratio 10.4 (10-20); Calcium 7.9 mg/dl (8.5-10.1); Est GFR (African American) 128.5; Est GFR (Non-African American) 110.8; Potassium 3.8 mmol/L (3.5-5.1)
[2019-12-14] MEDS ORDERED: SODIUM CHLORIDE 0.9% IV ONE (18:00)
[2019-12-14] MEDS: FOLIC ACID 1 MG in SYRINGE 9.8 ML IV SCH (18:00)
[2019-12-14] MEDS ORDERED: VANCOMYCIN HCL 2,500 MG in SODIUM CHLORIDE 0.9% 500 ML IV ONE (18:00)
[2019-12-14] MEDS ORDERED: VANCOMYCIN HCL IV ONE (18:00)
[2019-12-14 18:03] LABS: Albumin Globulin Ratio 0.7 (0.9-2); Bilirubin,Total 0.9 mg/dl (0.2-1); Globulin 4.4 gm/dl (2.5-4.0); Total Protein 7.4 gm/dl (6.4-8.2)
--- NOTE | 2019-12-14 18:03 | XRay Report ---
XR chest 1V portable CLINICAL HISTORY: fever, concern for aspiration COMPARISON STUDY: Chest radiograph December 10, 2019. FINDINGS: Lung volumes are diminished. There is no pneumothorax or pleural effusion. Slight increased bibasilar markings are noted. Cardiac size is within normal limits. There is no evidence for pulmona ry edema. IMPRESSION: Mild increased markings within the lung bases. Atelectasis is favored on this hypoventil atory study. An infectious process could appear similar although is considered less likely. ACT 112: Negative or not required by law. Electronically signed by: Monroe Traore M.D. 12/14/2019 6:01 PM
--- NOTE | 2019-12-14 20:18 | Pharmacy Report ---
Pharmacy Abx Initial Consult - Date of Service December 14, 2019 - Pharmacy Dosing Scope Date of Consult: 12/14/19 Consultation requested by: Dr. Clark Pharmacy is consulted to initiate Vancomycin + Zosyn IV dosing therapy, order appropriate labs and adjust drug dose/frequency. - Subjective The patient is a 39 year old M admitted on 12/10/19 16:27. - Objective Height: 6 ft 1 in Weight: 95.2 kg Vital Signs (Past 12hrs): Vital Signs Temp Pulse BP Pulse Ox 12/14/19 18:05 38.1 C H 70 112/67 97 12/14/19 18:00 38.2 C H 77 97 12/14/19 17:05 38.5 C H 71 112/64 95 12/14/19 17:00 38.5 C H 71 97 12/14/19 16:05 38.6 C H 72 119/65 97 12/14/19 16:00 38.6 C H 73 97 12/14/19 15:30 38.6 C H 81 97 12/14/19 15:05 38.7 C H 77 124/70 98 12/14/19 15:00 38.8 C H 77 98 12/14/19 14:30 38.9 C H 77 99 12/14/19 14:05 39.2 C H 92 H 135/75 99 12/14/19 14:00 39.3 C H 77 99 12/14/19 13:30 39.6 C H 84 100 12/14/19 13:15 39.6 C H 84 99 12/14/19 13:05 87 145/84 H 99 12/14/19 13:00 82 99 12/14/19 12:45 80 100 12/14/19 12:30 81 99 12/14/19 12:15 83 99 12/14/19 12:05 95 H 135/94 99 12/14/19 12:00 88 100 12/14/19 11:45 37.5 C 83 99 12/14/19 11:30 37.4 C 96 H 97 12/14/19 11:15 37.3 C 81 99 12/14/19 11:05 37.2 C 81 143/79 H 99 12/14/19 11:00 37.2 C 77 99 12/14/19 10:45 37.2 C 79 96 12/14/19 10:30 37.1 C 77 97 12/14/19 10:05 36.9 C 82 169/98 H 99 12/14/19 10:00 36.8 C 83 99 12/14/19 09:30 36.7 C 84 99 12/14/19 09:25 36.7 C 88 144/84 H 99 12/14/19 09:00 36.4 C L 74 98 12/14/19 08:30 36.2 C L 86 95 Lab Results (24hrs): Laboratory Tests (24 Hours) 12/14/19 12/14/19 12/14/19 17:34 17:34 04:31 WBC 8.21 Neut # (Auto) 5.38 Creatinine 0.83 0.69 Est Cr Clr Drug Dosing 135.0 162.4 12/14/19 04:31 WBC 6.42 Neut # (Auto) Creatinine Est Cr Clr Drug Dosing Micro Results: 12/14/19 17:05 Urine Culture - Pending Urine,Straight Cath 12/14/19 17:12 Aerobic Blood Culture - Pending Blood Anaerobic Blood Culture - Pending 12/14/19 17:18 Aerobic Blood Culture - Pending Blood Anaerobic Blood Culture - Pending - Risk Factors for Resistance * Current hospitalization ~ 5 days - Assessment & Plan Assessment 39 year old M initiated on Vancomycin + Zosyn for fever of unknown origin Plan Vancomycin IV * Loading dose: 2500 mg (26 mg/kg) * Maintenance dose: 1750 mg IV ( 18 mg/kg) every 8 hours * Patient meets criteria for vancomycin AUC dosing nomogram * AUC/VERONICA is the preferred PK/PD target for vancomycin * Target AUC/VERONICA = 400-600 * AUC guided dosing is effective and associated with decreased risk of nephrotoxicity Piperacillin/tazobactam * 4.5 g bolus administered over 30 minutes, then 4.5 g IV extended infusion every 8 hours for CrCl greater than 20 mL/min * Aggressive dosing selected due to critically ill status/BMI 35 or more/history of cystic fibrosis. Pharmacy will continue to follow and will adjust dose/frequency as necessary. Thank you.
[2019-12-14] MEDS ORDERED: PIPERACILLIN/TAZOBACTAM 4.5 GM in DEXTROSE 5% 100 ML IV SCH (22:00)
[2019-12-15] MEDS ORDERED: VANCOMYCIN HCL 1,750 MG in SODIUM CHLORIDE 0.9% 500 ML IV SCH (02:00)
[2019-12-15] MEDS: DEXMEDETOMIDINE HCL 400 MCG in 0.9 % SODIUM CHLORIDE 96 ML IV SCH ×6 (02:34→22:38)
[2019-12-15] MEDS: LORazepam 4 MG/8 ML VIAL IV SCH ×7 (02:37→21:40)
[2019-12-15] MEDS: NORMOSOL-R 1,000 ML IV SCH ×2 (02:45→14:36)
[2019-12-15] MEDS ORDERED: GABAPENTIN 600 MG TAB PO SCH (04:00)
[2019-12-15 05:16] LABS: Basophils # (auto) 0.03 K/uL (0-0.2); Basophils % (auto) 0.4 %; Eosinophils # (auto) 0.26 K/uL (0-0.5); Eosinophils % (auto) 3.7 %; Hematocrit (blood only) 37.4 % (42-52); Hemoglobin 12.1 g/dL (14.0-18.0); Immature Granulocytes # (auto) 0.01 K/uL (0.00-0.02); Immature Granulocytes % (auto) 0.1 %; Lymphocytes # (auto) 0.89 K/uL (1.2-3.4); Lymphocytes % (auto) 12.7 %; Mean Corpuscular Hemoglobin 33.2 pg (25-34); Mean Corpuscular Hgb Conc 32.4 g/dL (32-36); Mean Corpuscular Volume 102.5 fL (80-100); Mean Platelet Volume 11.1 fL (7.4-10.4); Monocytes # (auto) 1.72 K/uL (0.11-0.59); Monocytes % (auto) 24.5 %; Neutrophils # (auto) 4.11 K/uL (1.4-6.5); Neutrophils % (auto) 58.6 %; Platelet Count 144 K/uL (130-400); RDW Coefficient of Variation 13.1 % (11.5-14.5); RDW Standard Deviation 49.5 fL (36.4-46.3); Red Blood Count 3.65 M/uL (4.7-6.1); White Blood Count 7.02 K/uL (4.8-10.8)
[2019-12-15 05:44] LABS: Albumin Level 2.9 gm/dl (3.4-5.0); BUN Creatinine Ratio 10.5 (10-20); Calcium 7.3 mg/dl (8.5-10.1); Creatinine Clr Calc Pharmacy 124.5 ml/min; Est GFR (African American) 124.3; Est GFR (Non-African American) 107.2; Magnesium 2.4 mg/dl (1.8-2.4); Potassium 3.5 mmol/L (3.5-5.1)
[2019-12-15 05:46] LABS: Albumin Globulin Ratio 0.7 (0.9-2); Bilirubin,Total 0.8 mg/dl (0.2-1); Globulin 4.3 gm/dl (2.5-4.0); Phosphorus 2.8 mg/dl (2.5-4.9); Total Protein 7.2 gm/dl (6.4-8.2)
[2019-12-15] MEDS: POTASSIUM CHLORIDE / WTR 10 MEQ/100 ML PLCT IV SCH ×2 (06:27→07:29)
[2019-12-15] MEDS: INSULIN ASPART 100 UNITS/ML 3 ML PEN SC SCH ×4 (06:29→17:38)
[2019-12-15] MEDS: NEOMYCIN/POLYMYX/BACITR OINT 15 GM TUBE EXT SCH ×2 (07:30→21:41)
[2019-12-15] MEDS: CYANOCOBALAMIN 500 MCG TABLET (VITAMIN B-12) PO SCH (07:30)
[2019-12-15] MEDS: PANTOprazole 40 MG TAB PO SCH (07:30)
[2019-12-15] MEDS: LOSARTAN POTASSIUM 50 MG TAB PO SCH (07:30)
--- NOTE | 2019-12-15 07:43 | Hospitalist Progress Note ---
Date of Service December 15, 2019 Assessment & Plan (1) Seizure-like activity: This is a 39-year-old male who has significant past medical history of HTN, HLD, GERD, prediabetes who presents to ED after sustaining seizure-like activity prior to arrival. Seizure like activity 2/2 alcohol withdrawal, and in the setting of electrolyte abnormalities No prior hx of seizure in past admitted to PCU initially, currently in ICU, on Precedex, IV Ativan, also required Geodon started keppra 500mg bid by admitting provider, discussed with neurology, Keppra discontinued as seizure seems to be secondary to alcohol withdrawal EEG ordered - unremarkable Neurology consulted - appreciate their input Patient will not be able to drive for 6 months, patient aware tx for alcohol withdrawal as below (2) Alcohol withdrawal: encourage alcohol abstinence Gave Banana Bag x 1 on admission daily thiamine and folic acid Librium taper, PRN lorazepam for active withdrawal, patient was also loaded with gabapentin, however he had severe withdrawal and required admission to ICU Currently on IV Precedex, IV Ativan, also Geodon prn Due to being aggressive and agitated, required 4 point restraints seizure precautions Patient in need of alcohol rehab after discharge Fever -Seems to be secondary to autonomic instability, less likely secondary to infectious process -Patient has been sedated/obtunded, possible risk for aspiration, Dixon catheter placed when admitted to ICU, will also check skin around IV lines for any signs of infection/erythema -Obtained blood cultures, UA/urine culture, chest x-ray -started empiric antibiotic - zosyn, vanco, d/c now -UA unremarkable, chest x-ray unremarkable, blood cultures no growth to date -Fever seems to be secondary to autonomic instability related to alcohol with drawal (3) Hypomagnesemia: received 2g mag sulfate in ED cont. to monitor and replete as needed Hypokalemia -Replete and monitor (4) Elevated LFTs: likely in setting of ETOH use, prior elevated lfts in outpt lab last US abd 04/2017 revealed mild hepatomegaly with diffuse increased e chogenicity of liver hold statin, obtain US of abd RUQ Ultrasound showed some sludge and polyp in gallbladder, recommend to follow-up after his active alcohol withdrawal LFTs trending down (5) Prediabetes: Pt with hyperglycemia, BSG 249 on admission Last A1c 6.2 12/12/2018 Obtained Hgb A1c 6.3% Accu-Cheks, NovoLog per protocol (6) HTN (hypertension): BP elevated in setting of withdrawal continue losartan but hold HCTZ monitor (7) Hyperlipidemia: hold statin in setting of elevated LFTS Full Code Disposition: ICU Follow up: PCP Dr. Langford upon discharge Admission and Anticipated Discharge Date Admission Date: December 10, 2019 Subjective Patient sitting up in bed, he is able to answer some questions appropriately. He currently denies any complaints except that he is hungry. Continues to use high doses of IV Ativan, IV Precedex. Febrile again this afternoon. Review of Systems Review of Systems: All systems reviewed & are unremarkable except as noted in HPI & below Constitutional: + fever and + chills Respiratory: no cough and no dyspnea Cardiovascular: no chest pain and no palpitations Gastrointestinal: no abdominal pain, no nausea and no vomiting Physical Exam Physical Exam: Constitutional: WD/WN, male, sitting up in bed in NAD, able to answer some questions appropriately Head: Normocephalic, abrasion to left and lateral forehead with erythematous wound bed, no drainage Eyes: PERRL, EOMI, conjunctivae normal, anicteric sclerae ENMT: external ear and nose normal, oropharynx normal Neck: trachea midline, no thyromegaly normal visual inspection Respiratory: normal respiratory effort, lungs clear to auscultation, no wheeze, +rhonchi. Normal insp/exp effort, no accessory muscle use Cardiovascular: rrr, no murmur, no edema Vessels: no JVD or carotid bruit Chest: normal inspection of chest Abdomen: normal bowel sounds, nontender, mildly distended Musculoskeletal: no cyanosis or clubbing, moves extremities spontaneously Skin: no rashes, warm and dry normal turgor Neurologic: PERRL, EOMI, no face palsy, moves all extremities Psychiatric: able to answer some questions appropriately Results & Data Results & Data ([facility]) Laboratory Results 12/15/19 12/15/19 12/15/19 Range/Units 06:03 04:58 04:58 WBC 7.02 (4.8-10.8) K/uL RBC 3.65 L (4.7-6.1) M/uL Hgb 12.1 L (14.0-18.0) g/dL Hct 37.4 L (42-52) % MCV 102.5 H (80-100) fL MCH 33.2 (25-34) pg MCHC 32.4 (32-36) g/dL RDW Std Deviation 49.5 H (36.4-46.3) fL RDW Coeff of Cori 13.1 (11.5-14.5) % Plt Count 144 (130-400) K/uL MPV 11.1 H (7.4-10.4) fL Immature Gran % (Auto) 0.1 % Neut % (Auto) 58.6 % Lymph % (Auto) 12.7 % Carroll % (Auto) 24.5 % Eos % (Auto) 3.7 % Baso % (Auto) 0.4 % Neut # (Auto) 4.11 (1.4-6.5) K/uL Lymph # (Auto) 0.89 L (1.2-3.4) K/uL Carroll # (Auto) 1.72 H (0.11-0.59) K/uL Eos # (Auto) 0.26 (0-0.5) K/uL Baso # (Auto) 0.03 (0-0.2) K/uL Immature Gran # (Auto) 0.01 (0.00-0.02) K/uL Sodium 143 (136-145) mmol/L Potassium 3.5 (3.5-5.1) mmol/L Chloride 110 H (98-107) mmol/L Carbon Dioxide 28 (21-32) mmol/L Anion Gap 5.0 (3-11) BUN 10 (7-18) mg/dl Creatinine 0.90 (0.6-1.4) mg/dl Est Cr Clr Drug Dosing 124.5 ml/min Est GFR ( Amer) 124.3 Est GFR (Non-Af Amer) 107.2 BUN/Creatinine Ratio 10.5 (10-20) Glucose 108 H (70-99) mg/dl POC Glucose 109 H (70-99) mg/dl Lactate (0.4-2.0) mmol/L Calcium 7.3 L (8.5-10.1) mg/dl Phosphorus 2.8 (2.5-4.9) mg/dl Magnesium 2.4 (1.8-2.4) mg/dl Total Bilirubin 0.8 (0.2-1) mg/dl AST 69 H (15-37) U/L ALT 91 H (12-78) U/L Alkaline Phosphatase 88 (45-117) U/L Ammonia (11-32) umol/L Total Protein 7.2 (6.4-8.2) gm/dl Albumin 2.9 L (3.4-5.0) gm/dl Globulin 4.3 H (2.5-4.0) gm/dl Albumin/Globulin Ratio 0.7 L (0.9-2) Procalcitonin (0-0.5) ng/ml Urine Color Urine Appearance (Clear) Urine pH (4.5-7.5) Ur Specific [place] (1.000-1.030) Urine Protein (Negative) Urine Glucose (UA) (Negative) Urine Ketones (Negative) Urine Blood (Negative) Urine Nitrite (Negative) Urine Bilirubin (Negative) Urine Urobilinogen (Negative) Ur Leukocyte Esterase (Negative) Urine WBC (Auto) (0-5) /hpf Urine RBC (Auto) (0-4) /hpf U Hyaline Cast (Auto) (0-5) /lpf U Epithel Cells (Auto) (0-5) /lpf Urine Bacteria (Auto) (Negative) Nasal Screen MRSA (PCR) (Negative) 12/14/19 12/14/19 12/14/19 Range/Units Unknown 23:53 20:02 WBC (4.8-10.8) K/uL RBC (4.7-6.1) M/uL Hgb (14.0-18.0) g/dL Hct (42-52) % MCV (80-100) fL MCH (25-34) pg MCHC (32-36) g/dL RDW Std Deviation (36.4-46.3) fL RDW Coeff of Cori (11.5-14.5) % Plt Count (130-400) K/uL MPV (7.4-10.4) fL Immature Gran % (Auto) % Neut % (Auto) % Lymph % (Auto) % Carroll % (Auto) % Eos % (Auto) % Baso % (Auto) % Neut # (Auto) (1.4-6.5) K/uL Lymph # (Auto) (1.2-3.4) K/uL Carroll # (Auto) (0.11-0.59) K/uL Eos # (Auto) (0-0.5) K/uL Baso # (Auto) (0-0.2) K/uL Immature Gran # (Auto) (0.00-0.02) K/uL Sodium (136-145) mmol/L Potassium (3.5-5.1) mmol/L Chloride (98-107) mmol/L Carbon Dioxide (21-32) mmol/L Anion Gap (3-11) BUN (7-18) mg/dl Creatinine (0.6-1.4) mg/dl Est Cr Clr Drug Dosing ml/min Est GFR ( Amer) Est GFR (Non-Af Amer) BUN/Creatinine Ratio (-20) Glucose (70-99) mg/dl POC Glucose 114 H (70-99) mg/dl Lactate 0.8 (0.4-2.0) mmol/L Calcium (8.5-10.1) mg/dl Phosphorus (2.5-4.9) mg/dl Magnesium (1.8-2.4) mg/dl Total Bilirubin (0.2-1) mg/dl AST (15-37) U/L ALT (12-78) U/L Alkaline Phosphatase (45-117) U/L Ammonia (11-32) umol/L Total Protein (6.4-8.2) gm/dl Albumin (3.4-5.0) gm/dl Globulin (2.5-4.0) gm/dl Albumin/Globulin Ratio (0.9-2) Procalcitonin (0-0.5) ng/ml Urine Color Urine Appearance (Clear) Urine pH (4.5-7.5) Ur Specific [place] (1.000-1.030) Urine Protein (Negative) Urine Glucose (UA) (Negative) Urine Ketones (Negative) Urine Blood (Negative) Urine Nitrite (Negative) Urine Bilirubin (Negative) Urine Urobilinogen (Negative) Ur Leukocyte Esterase (Negative) Urine WBC (Auto) (0-5) /hpf Urine RBC (Auto) (0-4) /hpf U Hyaline Cast (Auto) (0-5) /lpf U Epithel Cells (Auto) (0-5) /lpf Urine Bacteria (Auto) (Negative) Nasal Screen MRSA (PCR) Negative (Negative) 12/14/19 12/14/19 12/14/19 Range/Units 17:38 17:36 17:34 WBC (4.8-10.8) K/uL RBC (4.7-6.1) M/uL Hgb (14.0-18.0) g/dL Hct (42-52) % MCV (80-100) fL MCH (25-34) pg MCHC (32-36) g/dL RDW Std Deviation (36.4-46.3) fL RDW Coeff of Cori (11.5-14.5) % Plt Count (130-400) K/uL MPV (7.4-10.4) fL Immature Gran % (Auto) % Neut % (Auto) % Lymph % (Auto) % Carroll % (Auto) % Eos % (Auto) % Baso % (Auto) % Neut # (Auto) (1.4-6.5) K/uL Lymph # (Auto) (1.2-3.4) K/uL Carroll # (Auto) (0.11-0.59) K/uL Eos # (Auto) (0-0.5) K/uL Baso # (Auto) (0-0.2) K/uL Immature Gran # (Auto) (0.00-0.02) K/uL Sodium 141 (136-145) mmol/L Potassium 3.8 (3.5-5.1) mmol/L Chloride 109 H (98-107) mmol/L Carbon Dioxide 25 (21-32) mmol/L Anion Gap 8.0 (3-11) BUN 9 (7-18) mg/dl Creatinine 0.83 (0.6-1.4) mg/dl Est Cr Clr Drug Dosing 135.0 ml/min Est GFR ( Amer) 128.5 Est GFR (Non-Af Amer) 110.8 BUN/Creatinine Ratio 10.4 (10-20) Glucose 109 H (70-99) mg/dl POC Glucose 128 H (70-99) mg/dl Lactate (0.4-2.0) mmol/L Calcium 7.9 L (8.5-10.1) mg/dl Phosphorus (2.5-4.9) mg/dl Magnesium (1.8-2.4) mg/dl Total Bilirubin 0.9 (0.2-1) mg/dl AST 85 H (15-37) U/L ALT 105 H (12-78) U/L Alkaline Phosphatase 88 (45-117) U/L Ammonia (11-32) umol/L Total Protein 7.4 (6.4-8.2) gm/dl Albumin 3.0 L (3.4-5.0) gm/dl Globulin 4.4 H (2.5-4.0) gm/dl Albumin/Globulin Ratio 0.7 L (0.9-2) Procalcitonin 0.21 (0-0.5) ng/ml Urine Color Urine Appearance (Clear) Urine pH (4.5-7.5) Ur Specific [place] (1.000-1.030) Urine Protein (Negative) Urine Glucose (UA) (Negative) Urine Ketones (Negative) Urine Blood (Negative) Urine Nitrite (Negative) Urine Bilirubin (Negative) Urine Urobilinogen (Negative) Ur Leukocyte Esterase (Negative) Urine WBC (Auto) (0-5) /hpf Urine RBC (Auto) (0-4) /hpf U Hyaline Cast (Auto) (0-5) /lpf U Epithel Cells (Auto) (0-5) /lpf Urine Bacteria (Auto) (Negative) Nasal Screen MRSA (PCR) (Negative) 12/14/19 12/14/19 12/14/19 Range/Units 17:34 17:05 11:23 WBC 8.21 (4.8-10.8) K/uL RBC 3.65 L (4.7-6.1) M/uL Hgb 12.2 L (14.0-18.0) g/dL Hct 36.7 L (42-52) % MCV 100.5 H (80-100) fL MCH 33.4 (25-34) pg MCHC 33.2 (32-36) g/dL RDW Std Deviation 47.5 H (36.4-46.3) fL RDW Coeff of Cori 12.9 (11.5-14.5) % Plt Count 143 (130-400) K/uL MPV 11.1 H (7.4-10.4) fL Immature Gran % (Auto) 0.2 % Neut % (Auto) 65.6 % Lymph % (Auto) 14.5 % Carroll % (Auto) 18.6 % Eos % (Auto) 0.9 % Baso % (Auto) 0.2 % Neut # (Auto) 5.38 (1.4-6.5) K/uL Lymph # (Auto) 1.19 L (1.2-3.4) K/uL Carroll # (Auto) 1.53 H (0.11-0.59) K/uL Eos # (Auto) 0.07 (0-0.5) K/uL Baso # (Auto) 0.02 (0-0.2) K/uL Immature Gran # (Auto) 0.02 (0.00-0.02) K/uL Sodium (136-145) mmol/L Potassium (3.5-5.1) mmol/L Chloride (98-107) mmol/L Carbon Dioxide (21-32) mmol/L Anion Gap (3-11) BUN (7-18) mg/dl Creatinine (0.6-1.4) mg/dl Est Cr Clr Drug Dosing ml/min Est GFR ( Amer) Est GFR (Non-Af Amer) BUN/Creatinine Ratio (10-20) Glucose (70-99) mg/dl POC Glucose 103 H (70-99) mg/dl Lactate (0.4-2.0) mmol/L Calcium (8.5-10.1) mg/dl Phosphorus (2.5-4.9) mg/dl Magnesium (1.8-2.4) mg/dl Total Bilirubin (0.2-1) mg/dl AST (15-37) U/L ALT (12-78) U/L Alkaline Phosphatase (45-117) U/L Ammonia (11-32) umol/L Total Protein (6.4-8.2) gm/dl Albumin (3.4-5.0) gm/dl Globulin (2.5-4.0) gm/dl Albumin/Globulin Ratio (0.9-2) Procalcitonin (0-0.5) ng/ml Urine Color Dark Yellow Urine Appearance Clear (Clear) Urine pH 5.0 (4.5-7.5) Ur Specific [place] 1.025 (1.000-1.030) Urine Protein Trace H (Negative) Urine Glucose (UA) Negative (Negative) Urine Ketones 2+ H (Negative) Urine Blood 3+ H (Negative) Urine Nitrite Negative (Negative) Urine Bilirubin Negative (Negative) Urine Urobilinogen Negative (Negative) Ur Leukocyte Esterase 1+ H (Negative) Urine WBC (Auto) 10-30 H (0-5) /hpf Urine RBC (Auto) 10-30 H (0-4) /hpf U Hyaline Cast (Auto) 10-30 H (0-5) /lpf U Epithel Cells (Auto) 0-5 (0-5) /lpf Urine Bacteria (Auto) Negative (Negative) Nasal Screen MRSA (PCR) (Negative) 12/14/19 Range/Units 09:07 WBC (4.8-10.8) K/uL RBC (4.7-6.1) M/uL Hgb (14.0-18.0) g/dL Hct (42-52) % MCV (80-100) fL MCH (25-34) pg MCHC (32-36) g/dL RDW Std Deviation (36.4-46.3) fL RDW Coeff of Cori (11.5-14.5) % Plt Count (130-400) K/uL MPV (7.4-10.4) fL Immature Gran % (Auto) % Neut % (Auto) % Lymph % (Auto) % Carroll % (Auto) % Eos % (Auto) % Baso % (Auto) % Neut # (Auto) (1.4-6.5) K/uL Lymph # (Auto) (1.2-3.4) K/uL Carroll # (Auto) (0.11-0.59) K/uL Eos # (Auto) (0-0.5) K/uL Baso # (Auto) (0-0.2) K/uL Immature Gran # (Auto) (0.00-0.02) K/uL Sodium (136-145) mmol/L Potassium (3.5-5.1) mmol/L Chloride (98-107) mmol/L Carbon Dioxide (21-32) mmol/L Anion Gap (3-11) BUN (7-18) mg/dl Creatinine (0.6-1.4) mg/dl Est Cr Clr Drug Dosing ml/min Est GFR ( Amer) Est GFR (Non-Af Amer) BUN/Creatinine Ratio (10-20) Glucose (70-99) mg/dl POC Glucose (70-99) mg/dl Lactate (0.4-2.0) mmol/L Calcium (8.5-10.1) mg/dl Phosphorus (2.5-4.9) mg/dl Magnesium (1.8-2.4) mg/dl Total Bilirubin (0.2-1) mg/dl AST (15-37) U/L ALT (12-78) U/L Alkaline Phosphatase (45-117) U/L Ammonia < 10.0 L (11-32) umol/L Total Protein (6.4-8.2) gm/dl Albumin (3.4-5.0) gm/dl Globulin (2.5-4.0) gm/dl Albumin/Globulin Ratio (0.9-2) Procalcitonin (0-0.5) ng/ml Urine Color Urine Appearance (Clear) Urine pH (4.5-7.5) Ur Specific [place] (1.000-1.030) Urine Protein (Negative) Urine Glucose (UA) (Negative) Urine Ketones (Negative) Urine Blood (Negative) Urine Nitrite (Negative) Urine Bilirubin (Negative) Urine Urobilinogen (Negative) Ur Leukocyte Esterase (Negative) Urine WBC (Auto) (0-5) /hpf Urine RBC (Auto) (0-4) /hpf U Hyaline Cast (Auto) (0-5) /lpf U Epithel Cells (Auto) (0-5) /lpf Urine Bacteria (Auto) (Negative) Nasal Screen MRSA (PCR) (Negative) Medications Administered Current Inpatient Medications Acetaminophen (Acetaminophen 325 Mg Supp) 325 mg NC Q4H PRN PRN Reason: Fever Stop: 01/12/20 23:57 Last Admin: 12/14/19 13:11 Dose: 325 mg Documented by: Al Hydrox/Mg Hydrox/Simethicone (Aluminum/Magnesium Susp 30 Ml Udc) 15 ml PO Q4H PRN PRN Reason: Dyspepsia Stop: 01/09/20 18:48 Cyanocobalamin (Cyanocobalamin 500 Mcg Tablet (Vitamin B-12)) 1,000 mcg PO QAM MARIOLA Stop: 01/11/20 08:59 Last Admin: 12/15/19 07:30 Dose: Not Given Documented by: Enoxaparin Sodium (Enoxaparin Inj 40 Mg/0.4 Ml Syr) 40 mg SQ DAILY MARIOLA Stop: 01/11/20 08:59 Last Admin: 12/14/19 08:31 Dose: 40 mg Documented by: Folic Acid (Folic Acid 1 Mg Tab) 1 mg PO QAM MARIOLA Stop: 01/09/20 19:59 Last Admin: 12/14/19 08:10 Dose: Not Given Documented by: Glucagon (Glucagon For Inj 1 Mg Vial) 1 mg SQ UD PRN; Protocol PRN Reason: Hypoglycemia Protocol Stop: 01/09/20 18:48 Glucose (Glucose 10 Tabs/Tube) 4 - 8 tabs PO UD PRN; Protocol PRN Reason: Hypoglycemia Protocol Stop: 01/09/20 18:48 Glucose (Glucose 40% Gel 15 Gm Tube) 15 - 30 gm PO UD PRN; Protocol PRN Reason: Hypoglycemia Protocol Stop: 01/09/20 18:48 Lorazepam (Ativan) 4 mg in 8 mls @ 4 mls/min IV Q4H [facility] Stop: 01/10/20 21:59 Last Admin: 12/15/19 06:56 Dose: 4 mls/min Documented by: Lorazepam (Ativan) 2 mg in 4 mls @ 4 mls/min IV Q2H PRN PRN Reason: RASS goal -1 Stop: 01/10/20 19:44 Lorazepam (Ativan) 1 mg in 2 mls @ 2 mls/min IV UD PRN; Protocol PRN Reason: EtOH Withdrawl AWSS Score 6,7 Stop: 01/10/20 19:44 Lorazepam (Ativan) 2 mg in 4 mls @ 4 mls/min IV UD PRN; Protocol PRN Reason: EtOH Withdrawl AWSS Score 8,9 Stop: 01/10/20 19:44 Lorazepam (Ativan) 3 mg in 6 mls @ 4 mls/min IV ONCE PRN; Protocol PRN Reason: EtOH Withdrawl AWSS Score >=10 Stop: 01/10/20 19:44 Last Admin: 12/12/19 07:51 Dose: 4 mls/min Documented by: Parenteral Electrolytes (Normosol-R) 1,000 mls @ 125 mls/hr IV .Q8H [facility] Stop: 01/10/20 23:44 Last Admin: 12/15/19 02:45 Dose: 80 mls/hr Documented by: Thiamine HCl 100 mg/ Syringe 10 mls @ 2 mls/min IV TID [facility] Stop: 12/15/19 13:59 Last Admin: 12/14/19 21:50 Dose: 2 mls/min Documented by: Dexmedetomidine HCl 400 mcg/ (Sodium Chloride) 100 mls @ 27.06 mls/hr IV .Q3H42M [facility]; Protocol Stop: 12/17/19 10:29 Last Admin: 12/15/19 06:28 Dose: 1.1 mcg/kg/hr, 27.1 mls/hr Documented by: Acetaminophen (Ofirm) 1,000 mg in 100 mls @ 400 mls/hr IV Q8H PRN PRN Reason: Fever Stop: 12/17/19 17:05 Folic Acid 1 mg/ Syringe 10 mls @ 5 mls/min IV QAM [facility] Stop: 01/13/20 17:59 Last Admin: 12/14/19 18:00 Dose: 5 mls/min Documented by: Potassium Chloride (K Cory / Wtr) 10 meq in 100 mls @ 100 mls/hr IV Q1H [facility] Stop: 12/15/19 08:08 Last Admin: 12/15/19 07:29 Dose: 100 mls/hr Documented by: Insulin Aspart (Insulin Aspart 100 Units/Ml 3 Ml Pen) 0 units SC Q6H [facility] Stop: 01/11/20 17:59 Last Admin: 12/15/19 06:29 Dose: Not Given Documented by: Ketorolac Tromethamine (Ketorolac Tromethamine 15 Mg/Ml Vial) 15 mg IV Q6H PRN PRN Reason: Fever Stop: 12/19/19 17:20 Losartan Potassium (Losartan Potassium 50 Mg Tab) [facility] Stop: 01/10/20 08:59 Last Admin: 12/15/19 07:30 Dose: Not Given Documented by: Magnesium Hydroxide (Magnesium Hydroxide Susp 30 Ml Udc) 30 ml PO Q12H PRN PRN Reason: Constipation Stop: 01/09/20 18:48 Miscellaneous (Carbohydrates For Hypoglycemia ) 15 - 30 gm PO UD PRN PRN Reason: Hypoglycemia Protocol Stop: 01/09/20 18:48 Miscellaneous (Icu Electrolyte Replacement Protocol) 1 ea N/A UD PRN PRN Reason: for e-lyte repletion Stop: 12/18/19 19:44 Neomycin/Polymyxin/Bacitracin (Neomycin/Polymyx/Bacitr Oint 15 Gm Tube) 1 appln EXT BID [facility] Stop: 01/09/20 20:59 Last Admin: 12/15/19 07:30 Dose: 1 appln Documented by: Nortriptyline HCl (Nortriptyline Hcl 25 Mg Cap) 75 mg PO HS [facility] Stop: 01/09/20 20:59 Last Admin: 12/11/19 20:29 Dose: Not Given Documented by: Ondansetron HCl (Ondansetron Inj 2 Mg/Ml 2 Ml Vial) 4 mg IV Q6H PRN PRN Reason: Nausea Stop: 01/09/20 18:48 Pantoprazole Sodium (Pantoprazole 40 Mg Tab) 40 mg PO DAILY [facility] Stop: 01/10/20 08:59 Last Admin: 12/15/19 07:30 Dose: Not Given Documented by: Polyethylene Glycol (Polyethylene (Miralax) 17 Gm Pack) 17 gm PO DAILY PRN PRN Reason: Constipation Stop: 01/09/20 18:48 Thiamine HCl (Thiamine Hcl 100 Mg Tab) 100 mg PO QAM [facility] Stop: 01/09/20 19:59 Last Admin: 12/12/19 10:22 Dose: Not Given Documented by: Ziprasidone (Ziprasidone 20 Mg/Ml Sd) 10 mg IM Q12H PRN PRN Reason: Agitation Stop: 01/10/20 18:30 Last Admin: 12/14/19 12:59 Dose: 10 mg Documented by:
[2019-12-15] MEDS: THIAMINE HCL 100 MG in SYRINGE 9 ML IV SCH (08:34)
[2019-12-15] MEDS: FOLIC ACID 1 MG in SYRINGE 9.8 ML IV SCH (08:34)
[2019-12-15] MEDS: ENOXAPARIN INJ 40 MG/0.4 ML SYR SQ SCH (08:34)
--- NOTE | 2019-12-15 08:36 | Critical Care Progress Note ---
Date of Service December 15, 2019 Assessment & Plan (1) Alcohol withdrawal: Impression: 39-year-old male with a known history of alcohol abuse admitted with seizure-like activity felt to be due to alcohol withdrawal. He is now developed increasing agitation. Attributed to alcohol withdrawal/delirium tremens. Possible the patient may have had some mild concussion also contributing when he fell and hit his head. Recommendations: 1. Alcohol withdrawal: Continue Ativan scheduled 4 mg every 4 hours as well as symptom dosed. Wean Precedex as tolerated. Will use Geodon 10 mg IM or 5 mg IV as needed for agitation. Continue high-dose thiamine and folate. Electrolyte replacement protocols. Continue restraints as needed to protect patient and staff. The patient is required over 24 mg of Ativan in the last 24 hours so we will try and slowly wean Precedex as tolerated. 2. Elevation in LFTs: They appear to be decreasing compared to admission. This is likely secondary to alcohol use. We will continue to trend. 3. Glycemic control per protocol. 4. Fever: Suspect this is related to his autonomic instability related to his alcohol withdrawal. Chest x-ray was clear. Urinalysis did show leukoesterase but no bacteria. Hold antibiotics. Given his elevated LFTs, will hold Tylenol. I see no evidence of infection so we will hold antibiotics for now. DVT and GI prophylaxis will be continued. Advance diet as tolerated. We will observe in the ICU pending improvement in the patient's level of delirium. (2) Elevated LFTs: (3) Seizure-like activity: (4) DTs (delirium tremens): Admission and Anticipated Discharge Date Admission Date: December 10, 2019 Subjective Patient seen and examined. He sedated this morning. He received a total of 24 mg of Ativan over the last 24 hours. He remains in restraints and on a Precedex infusion. Review of Systems Review of Systems: Unobtainable due to reduced consciousness Physical Exam Constitutional: well nourished; no acute distress Contusions on the right face are healing Neck: trachea midline, no thyromegaly Respiratory: normal respiratory effort, lungs clear to auscultation Cardiovascular: RRR, no murmur, no edema Gastrointestinal (Abdomen): normal bowel sounds, soft, nontender, no hepatosplenomegaly Musculoskeletal: Extremities: extremities normal to inspection Skin: no rashes, warm and dry Neurologic: Nonfocal exam Lymphatic: no cervical lymphadenopathy Results & Data Results & Data ([facility]) Vital Signs (Past 12 Hours) Vital Signs Temp Pulse BP Pulse Ox 12/15/19 07:05 37.1 C 65 144/82 H 98 12/15/19 07:00 37.1 C 66 99 12/15/19 06:05 37.3 C 64 127/80 98 12/15/19 06:00 37.3 C 63 98 12/15/19 05:05 37.2 C 62 133/83 100 12/15/19 05:00 37.2 C 64 100 12/15/19 04:05 37.3 C 61 123/81 99 12/15/19 04:00 37.3 C 61 100 12/15/19 03:05 37.3 C 60 126/84 99 12/15/19 03:00 37.3 C 62 100 12/15/19 02:05 37.1 C 61 137/81 100 12/15/19 02:00 37.1 C 61 100 12/15/19 01:05 37.1 C 62 116/71 99 12/15/19 01:00 37.1 C 63 98 12/15/19 00:05 37.2 C 63 127/75 100 12/15/19 00:00 37.2 C 63 100 12/14/19 23:05 37.2 C 66 111/71 96 12/14/19 23:00 37.2 C 66 96 12/14/19 22:05 37.3 C 69 121/80 99 12/14/19 22:00 37.3 C 70 100 12/14/19 21:05 37.3 C 63 116/67 99 12/14/19 21:00 37.3 C 69 98 Laboratory Results 12/15/19 04:58 12/15/19 04:58 Urinalysis with 1+ leukoesterase, 10-30 white cells per high-power field and no bacteria. Diagnostic Findings Chest x-ray demonstrated low lung volumes but no acute infiltrate or cardiopulmonary abnormality. Coding Level of Care Code 91047 Subseq Hosp Care Lvl 2 Diagnoses Alcohol withdrawal F10.239 Elevated LFTs R79.89 Seizure-like activity R56.9 DTs (delirium tremens) F10.231
--- NOTE | 2019-12-15 15:56 | XRay Report ---
[facility]UB CLINICAL HISTORY: Fever. FINDINGS: 4 AP, portable, supine abdominal radiographs are correlated with abdominal ultrasound dated 12/10/2019. There is a nonobstructed abdominal bowel gas pattern. No evidence of intraperitoneal free air is seen on these supine images. There are no abnormal abdominal calcifications. There is no evid ence of organomegaly or mass effect. The bony structures are intact as visualized. Sclerotic change i s noted in the sacroiliac joints. IMPRESSION: No acute abnormality is identified. Electronically signed by: Gibran Aguirre M.D. 12/15/2019 3:55 PM
[2019-12-15] MEDS: ZIPRASIDONE 20 MG/ML SDV IM PRN (18:00)
[2019-12-16] MEDS: INSULIN ASPART 100 UNITS/ML 3 ML PEN SC SCH ×5 (00:53→21:33)
[2019-12-16] MEDS: LORazepam 4 MG/8 ML VIAL IV SCH ×3 (02:16→09:35)
[2019-12-16] MEDS: DEXMEDETOMIDINE HCL 400 MCG in 0.9 % SODIUM CHLORIDE 96 ML IV SCH ×7 (02:31→18:26)
[2019-12-16] MEDS: NORMOSOL-R 1,000 ML IV SCH ×2 (04:38→07:55)
[2019-12-16 04:47] LABS: Basophils # (auto) 0.01 K/uL (0-0.2); Basophils % (auto) 0.2 %; Eosinophils # (auto) 0.27 K/uL (0-0.5); Eosinophils % (auto) 4.8 %; Hematocrit (blood only) 36.2 % (42-52); Hemoglobin 11.8 g/dL (14.0-18.0); Immature Granulocytes # (auto) 0.01 K/uL (0.00-0.02); Immature Granulocytes % (auto) 0.2 %; Lymphocytes # (auto) 1.04 K/uL (1.2-3.4); Lymphocytes % (auto) 18.4 %; Mean Corpuscular Hemoglobin 33.1 pg (25-34); Mean Corpuscular Hgb Conc 32.6 g/dL (32-36); Mean Corpuscular Volume 101.4 fL (80-100); Mean Platelet Volume 11.1 fL (7.4-10.4); Monocytes # (auto) 1.59 K/uL (0.11-0.59); Monocytes % (auto) 28.1 %; Neutrophils # (auto) 2.73 K/uL (1.4-6.5); Neutrophils % (auto) 48.3 %; Platelet Count 154 K/uL (130-400); RDW Standard Deviation 48.3 fL (36.4-46.3); Red Blood Count 3.57 M/uL (4.7-6.1); White Blood Count 5.65 K/uL (4.8-10.8)
[2019-12-16 05:03] LABS: Albumin Level 2.8 gm/dl (3.4-5.0); BUN Creatinine Ratio 11.2 (10-20); Calcium 7.5 mg/dl (8.5-10.1); Creatinine Clr Calc Pharmacy 149.7 ml/min; Est GFR (African American) 129.8; Magnesium 2.4 mg/dl (1.8-2.4); Potassium 3.6 mmol/L (3.5-5.1)
[2019-12-16 05:06] LABS: Albumin Globulin Ratio 0.7 (0.9-2); Bilirubin,Total 0.6 mg/dl (0.2-1); Globulin 4.2 gm/dl (2.5-4.0); Phosphorus 2.6 mg/dl (2.5-4.9)
[2019-12-16] MEDS: POTASSIUM CHLORIDE / WTR 10 MEQ/100 ML PLCT IV SCH ×4 (06:25→09:35)
[2019-12-16] MEDS: DEXTROSE 5% 1,000 ML IV SCH ×2 (08:44→16:31)
[2019-12-16] MEDS: ENOXAPARIN INJ 40 MG/0.4 ML SYR SQ SCH (08:45)
[2019-12-16] MEDS: FOLIC ACID 1 MG in SYRINGE 9.8 ML IV SCH (08:45)
[2019-12-16] MEDS: LOSARTAN POTASSIUM 50 MG TAB PO SCH (08:46)
[2019-12-16] MEDS: NEOMYCIN/POLYMYX/BACITR OINT 15 GM TUBE EXT SCH ×2 (08:46→21:34)
[2019-12-16] MEDS: CYANOCOBALAMIN 500 MCG TABLET (VITAMIN B-12) PO SCH (08:46)
[2019-12-16] MEDS: PANTOprazole 40 MG TAB PO SCH (08:46)
[2019-12-16] MEDS: THIAMINE HCL 100 MG TAB PO SCH (09:05)
[2019-12-16] MEDS: ACETAMINOPHEN 1,000 MG/100 ML VIAL IV PRN ×2 (09:07→18:04)
--- NOTE | 2019-12-16 09:18 | Critical Care Progress Note ---
Date of Service December 16, 2019 Assessment & Plan (1) Alcohol withdrawal: Impression: 39-year-old male with a known history of alcohol abuse admitted with seizure-like activity felt to be due to alcohol withdrawal. He is now developed increasing agitation. Attributed to alcohol withdrawal/delirium tremens. Possible the patient may have had some mild concussion also contributing when he fell and hit his head. --Metabolic encephalopathy Secondary to alcohol withdrawal Continue with alcohol withdrawal protocol Keep RASS -1 Replace electrolytes as needed. Aspiration precautions --Transaminitis Could be from chronic alcohol use Trending down Monitor --New onset fever Could be a sign of alcohol withdrawal We will repeat septic work-up today We will start antibiotics only if chest x-ray or UA shows something --Microcytic anemia Likely from chronic alcohol use Monitor H&H Continue with thiamine and folic acid --Hypernatremia with hyperchloremia Likely from IV fluids DC IV normal saline Give D5 water instead --Prophylaxis VTE: Lovenox GI: None Lines: Peripheral, Dixon Diet: N.p.o. Plan: In/out: +868, urine output 1876 Patient is spiking low-grade fever. Could be from alcohol withdrawal. Will get septic work-up. Will DC Dixon. If there is any infiltrate appreciated on the chest x-ray we will start the patient on antibiotics. Continue with Precedex for the time being. We will likely put the patient on standing Ativan. Continue with aspiration precautions Continue with 1 is to 1. DC normal saline. Give D5 water instead. I have personally spent 41 minutes of critical care time in the direct management of this patient. This is a life/limb threatening event. This includes time spent evaluating patient, direct bedside care, chart review, placing orders, interpretation of diagnostic studies, discussion with consultants, patient, and family members, as well as other required patient management activities. This time is exclusive of all separately billable procedures, and teaching time and separate from and in addition to any other critical care service time. Please note the above document was generated using voice recognition software. It may contain grammatical, syntax or spelling errors. (2) Elevated LFTs: (3) Seizure-like activity: (4) DTs (delirium tremens): Admission and Anticipated Discharge Date Admission Date: December 10, 2019 Subjective Patient seen and examined at bedside. No acute distress. Overnight patient got agitated for which he got Ativan. He got ziprasidone once yesterday. Patient is on Precedex 1.1 at the time of examination. He is also getting lorazepam Patient is oriented to self and place. Answer simple questions. Denies any chest pain, no shortness of breath. Review of Systems Review of Systems: All systems reviewed & are unremarkable except as noted in Subjective and Unobtainable due to cognitive status Physical Exam Physical Exam: Constitutional: No acute distress HEENT: EOMI, PERRLA Respiratory system: Decreased air entry bilaterally, no wheeze, no rhonchi, mild crackles bilateral lower lobes CVS: S1-S2 positive, no murmurs or gallops Abdomen: Soft, nontender, nondistended, positive bowel sounds x4 Extremities: +2 pulses bilaterally radialis/ dorsalis pedis, no cyanosis, no edema Neuro: Awake alert oriented x3 Psych: Normal mood and affect G/U: Positive Dixon Skin: no rashes, warm and dry Lymphatic: no cervical or axillary lymphadenopathy Results & Data Results & Data ([facility]) Vital Signs (Past 12 Hours) Vital Signs Temp Pulse BP Pulse Ox 12/16/19 07:06 38.1 C H 67 155/93 H 95 12/16/19 07:00 38.1 C H 72 97 12/16/19 06:06 37.9 C H 60 148/90 H 99 12/16/19 06:00 37.8 C H 60 98 12/16/19 05:06 37.4 C 60 143/80 H 100 12/16/19 05:00 37.4 C 63 100 12/16/19 04:06 37.0 C 57 L 161/85 H 99 12/16/19 04:00 37.0 C 60 99 12/16/19 03:06 37.0 C 58 L 153/84 H 97 12/16/19 03:00 37.0 C 57 L 98 12/16/19 02:06 37.0 C 60 134/77 98 12/16/19 02:00 37.1 C 58 L 99 12/16/19 01:06 37.3 C 59 L 142/85 H 99 12/16/19 01:00 37.3 C 58 L 99 12/16/19 00:06 37.2 C 59 L 139/79 100 12/16/19 00:00 37.2 C 64 100 12/15/19 23:06 36.9 C 64 139/89 99 12/15/19 23:00 36.9 C 66 98 12/15/19 22:06 36.7 C 59 L 151/85 H 98 12/15/19 22:00 36.7 C 59 L 97 12/16/19 04:25 12/16/19 04:25 Coding Level of Care Code Critical Care 1st 30-74 mins Diagnoses Alcohol withdrawal F10.239 Elevated LFTs R79.89 Seizure-like activity R56.9 DTs (delirium tremens) F10.231 Time Spent (min) 41
--- NOTE | 2019-12-16 09:39 | Hospitalist Progress Note ---
Date of Service December 16, 2019 Assessment & Plan (1) Seizure-like activity: This is a 39-year-old male who has significant past medical history of HTN, HLD, GERD, prediabetes who presents to ED after sustaining seizure-like activity prior to arrival. Seizure like activity 2/2 alcohol withdrawal, and in the setting of electrolyte abnormalities No prior hx of seizure in past admitted to PCU initially, currently in ICU, on Precedex, IV Ativan, also required Geodon started keppra 500mg bid by admitting provider, discussed with neurology, Keppra discontinued as seizure seems to be secondary to alcohol withdrawal EEG ordered - unremarkable Neurology consulted - appreciate their input Patient will not be able to drive for 6 months, patient aware tx for alcohol withdrawal as below (2) Alcohol withdrawal: encourage alcohol abstinence Gave Banana Bag x 1 on admission daily thiamine and folic acid Librium taper, PRN lorazepam for active withdrawal, patient was also loaded with gabapentin, however he had severe withdrawal and required admission to ICU Currently on IV Precedex, IV Ativan, also Geodon prn Due to being aggressive and agitated, required 4 point restraints seizure precautions Patient in need of alcohol rehab after discharge Fever -Seems to be secondary to autonomic instability, less likely secondary to infectious process -Patient has been sedated/obtunded, possible risk for aspiration, Dixon catheter placed when admitted to ICU, will also check skin around IV lines for any signs of infection/erythema -Obtained blood cultures, UA/urine culture, chest x-ray -started empiric antibiotic - zosyn, vanco, d/c'ed now -UA unremarkable, chest x-ray unremarkable, blood cultures no growth to date -Fever seems to be secondary to autonomic instability related to alcohol withdrawal -Continue to monitor for any infectious process (3) Hypomagnesemia: received 2g mag sulfate in ED cont. to monitor and replete as needed Hypokalemia -Replete and monitor (4) Elevated LFTs: likely in setting of ETOH use, prior elevated lfts in outpt lab last US abd 04/2017 revealed mild hepatomegaly with diffuse increased echogenicity of liver hold statin, obtain US of abd RUQ Ultrasound showed some sludge and polyp in gallbladder, recommend to follow-up after his active alcohol withdrawal LFTs trending down (5) Prediabetes: Pt with hyperglycemia, BSG 249 on admission Last A1c 6.2 12/12/2018 Obtained Hgb A1c 6.3% Accu-Cheks, NovoLog per protocol (6) HTN (hypertension): BP elevated in setting of withdrawal continue losartan but hold HCTZ monitor (7) Hyperlipidemia: hold statin in setting of elevated LFTS Full Code Disposition: ICU Follow up: PCP Dr. Langford upon discharge Admission and Anticipated Discharge Date Admission Date: December 10, 2019 Subjective Patient is laying in bed, resting, sedated. Sister at the bedside. Continues to use high doses of IV Ativan, IV Precedex. Continues to be febrile. Review of Systems Review of Systems: Unobtainable due to cognitive status Physical Exam Physical Exam: Constitutional: WD/WN, male, laying in bed in NAD, sedated Head: Normocephalic, abrasion to left and lateral forehead with erythematous wound bed, no drainage Eyes: PERRL, EOMI, conjunctivae normal, anicteric sclerae ENMT: external ear and nose normal, oropharynx normal Neck: trachea midline, no thyromegaly normal visual inspection Respiratory: normal respiratory effort, lungs clear to auscultation, no wheeze, +rhonchi. Normal insp/exp effort, no accessory muscle use Cardiovascular: rrr, no murmur, no edema Vessels: no JVD or carotid bruit Chest: normal inspection of chest Abdomen: normal bowel sounds, nontender, mildly distended Musculoskeletal: no cyanosis or clubbing, moves extremities spontaneously Skin: no rashes, warm and dry normal turgor Neurologic: PERRL, EOMI, no face palsy, moves all extremities Psychiatric: able to answer some questions appropriately Results & Data Results & Data ([facility]) Vital Signs (Past 12 Hours) Vital Signs Temp Pulse BP Pulse Ox 12/16/19 07:06 38.1 C H 67 155/93 H 95 12/16/19 07:00 38.1 C H 72 97 12/16/19 06:06 37.9 C H 60 148/90 H 99 12/16/19 06:00 37.8 C H 60 98 12/16/19 05:06 37.4 C 60 143/80 H 100 12/16/19 05:00 37.4 C 63 100 12/16/19 04:06 37.0 C 57 L 161/85 H 99 12/16/19 04:00 37.0 C 60 99 12/16/19 03:06 37.0 C 58 L 153/84 H 97 12/16/19 03:00 37.0 C 57 L 98 12/16/19 02:06 37.0 C 60 134/77 98 12/16/19 02:00 37.1 C 58 L 99 12/16/19 01:06 37.3 C 59 L 142/85 H 99 12/16/19 01:00 37.3 C 58 L 99 12/16/19 00:06 37.2 C 59 L 139/79 100 12/16/19 00:00 37.2 C 64 100 12/15/19 23:06 36.9 C 64 139/89 99 12/15/19 23:00 36.9 C 66 98 12/15/19 22:06 36.7 C 59 L 151/85 H 98 12/15/19 22:00 36.7 C 59 L 97 Laboratory Results 12/16/19 12/16/19 12/16/19 Range/Units 09:29 09:29 05:48 WBC (4.8-10.8) K/uL RBC (4.7-6.1) M/uL Hgb (14.0-18.0) g/dL Hct (42-52) % MCV (80-100) fL MCH (25-34) pg MCHC (32-36) g/dL RDW Std Deviation (36.4-46.3) fL RDW Coeff of Cori (11.5-14.5) % Plt Count (130-400) K/uL MPV (7.4-10.4) fL Immature Gran % (Auto) % Neut % (Auto) % Lymph % (Auto) % Forrest % (Auto) % Eos % (Auto) % Baso % (Auto) % Neut # (Auto) (1.4-6.5) K/uL Lymph # (Auto) (1.2-3.4) K/uL Forrest # (Auto) (0.11-0.59) K/uL Eos # (Auto) (0-0.5) K/uL Baso # (Auto) (0-0.2) K/uL Immature Gran # (Auto) (0.00-0.02) K/uL ESR Pending Sodium (136-145) mmol/L Potassium (3.5-5.1) mmol/L Chloride (98-107) mmol/L Carbon Dioxide (21-32) mmol/L Anion Gap (3-11) BUN (7-18) mg/dl Creatinine (0.6-1.4) mg/dl Est Cr Clr Drug Dosing ml/min Est GFR ( Amer) Est GFR (Non-Af Amer) BUN/Creatinine Ratio (-20) Glucose (70-99) mg/dl POC Glucose 108 H (70-99) mg/dl Calcium (8.5-10.1) mg/dl Phosphorus (2.5-4.9) mg/dl Magnesium (1.8-2.4) mg/dl Total Bilirubin (0.2-1) mg/dl AST (15-37) U/L ALT (12-78) U/L Alkaline Phosphatase (45-117) U/L C-Reactive Protein Pending Total Protein (6.4-8.2) gm/dl Albumin (3.4-5.0) gm/dl Globulin (2.5-4.0) gm/dl Albumin/Globulin Ratio (0.9-2) 12/16/19 12/16/19 12/15/19 Range/Units 04:25 04:25 23:54 WBC 5.65 (4.8-10.8) K/uL RBC 3.57 L (4.7-6.1) M/uL Hgb 11.8 L (14.0-18.0) g/dL Hct 36.2 L (42-52) % MCV 101.4 H (80-100) fL MCH 33.1 (25-34) pg MCHC 32.6 (32-36) g/dL RDW Std Deviation 48.3 H (36.4-46.3) fL RDW Coeff of Cori 13.0 (11.5-14.5) % Plt Count 154 (130-400) K/uL MPV 11.1 H (7.4-10.4) fL Immature Gran % (Auto) 0.2 % Neut % (Auto) 48.3 % Lymph % (Auto) 18.4 % Forrest % (Auto) 28.1 % Eos % (Auto) 4.8 % Baso % (Auto) 0.2 % Neut # (Auto) 2.73 (1.4-6.5) K/uL Lymph # (Auto) 1.04 L (1.2-3.4) K/uL Forrest # (Auto) 1.59 H (0.11-0.59) K/uL Eos # (Auto) 0.27 (0-0.5) K/uL Baso # (Auto) 0.01 (0-0.2) K/uL Immature Gran # (Auto) 0.01 (0.00-0.02) K/uL ESR Sodium 146 H (136-145) mmol/L Potassium 3.6 (3.5-5.1) mmol/L Chloride 112 H (98-107) mmol/L Carbon Dioxide 27 (21-32) mmol/L Anion Gap 7.0 (3-11) BUN 9 (7-18) mg/dl Creatinine 0.81 (0.6-1.4) mg/dl Est Cr Clr Drug Dosing 149.7 ml/min Est GFR ( Amer) 129.8 Est GFR (Non-Af Amer) 112.0 BUN/Creatinine Ratio 11.2 (10-20) Glucose 99 (70-99) mg/dl POC Glucose 103 H (70-99) mg/dl Calcium 7.5 L (8.5-10.1) mg/dl Phosphorus 2.6 (2.5-4.9) mg/dl Magnesium 2.4 (1.8-2.4) mg/dl Total Bilirubin 0.6 (0.2-1) mg/dl AST 60 H (15-37) U/L ALT 82 H (12-78) U/L Alkaline Phosphatase 84 (45-117) U/L C-Reactive Protein Total Protein 7.0 (6.4-8.2) gm/dl Albumin 2.8 L (3.4-5.0) gm/dl Globulin 4.2 H (2.5-4.0) gm/dl Albumin/Globulin Ratio 0.7 L (0.9-2) 12/15/19 12/15/19 Range/Units 17:37 11:34 WBC (4.8-10.8) K/uL RBC (4.7-6.1) M/uL Hgb (14.0-18.0) g/dL Hct (42-52) % MCV (80-100) fL MCH (25-34) pg MCHC (32-36) g/dL RDW Std Deviation (36.4-46.3) fL RDW Coeff of Cori (11.5-14.5) % Plt Count (130-400) K/uL MPV (7.4-10.4) fL Immature Gran % (Auto) % Neut % (Auto) % Lymph % (Auto) % Forrest % (Auto) % Eos % (Auto) % Baso % (Auto) % Neut # (Auto) (1.4-6.5) K/uL Lymph # (Auto) (1.2-3.4) K/uL Forrest # (Auto) (0.11-0.59) K/uL Eos # (Auto) (0-0.5) K/uL Baso # (Auto) (0-0.2) K/uL Immature Gran # (Auto) (0.00-0.02) K/uL ESR Sodium (136-145) mmol/L Potassium (3.5-5.1) mmol/L Chloride (98-107) mmol/L Carbon Dioxide (21-32) mmol/L Anion Gap (3-11) BUN (7-18) mg/dl Creatinine (0.6-1.4) mg/dl Est Cr Clr Drug Dosing ml/min Est GFR ( Amer) Est GFR (Non-Af Amer) BUN/Creatinine Ratio (10-20) Glucose (70-99) mg/dl POC Glucose 100 H 102 H (70-99) mg/dl Calcium (8.5-10.1) mg/dl Phosphorus (2.5-4.9) mg/dl Magnesium (1.8-2.4) mg/dl Total Bilirubin (0.2-1) mg/dl AST (15-37) U/L ALT (12-78) U/L Alkaline Phosphatase (45-117) U/L C-Reactive Protein Total Protein (6.4-8.2) gm/dl Albumin (3.4-5.0) gm/dl Globulin (2.5-4.0) gm/dl Albumin/Globulin Ratio (0.9-2) Medications Administered Current Inpatient Medications Acetaminophen (Acetaminophen 325 Mg Supp) 325 mg MI Q4H PRN PRN Reason: Fever Stop: 01/12/20 23:57 Last Admin: 12/14/19 13:11 Dose: 325 mg Documented by: Al Hydrox/Mg Hydrox/Simethicone (Aluminum/Magnesium Susp 30 Ml Udc) 15 ml PO Q4H PRN PRN Reason: Dyspepsia Stop: 01/09/20 18:48 Cyanocobalamin (Cyanocobalamin 500 Mcg Tablet (Vitamin B-12)) 1,000 mcg PO QAM [facility] Stop: 01/11/20 08:59 Last Admin: 12/16/19 08:46 Dose: 1,000 mcg Documented by: Enoxaparin Sodium (Enoxaparin Inj 40 Mg/0.4 Ml Syr) 40 mg SQ DAILY [facility] Stop: 01/11/20 08:59 Last Admin: 12/16/19 08:45 Dose: 40 mg Documented by: Folic Acid (Folic Acid 1 Mg Tab) 1 mg PO QAM [facility] Stop: 01/09/20 19:59 Last Admin: 12/14/19 08:10 Dose: Not Given Documented by: Glucagon (Glucagon For Inj 1 Mg Vial) 1 mg SQ UD PRN; Protocol PRN Reason: Hypoglycemia Protocol Stop: 01/09/20 18:48 Glucose (Glucose 10 Tabs/Tube) 4 - 8 tabs PO UD PRN; Protocol PRN Reason: Hypoglycemia Protocol Stop: 01/09/20 18:48 Glucose (Glucose 40% Gel 15 Gm Tube) 15 - 30 gm PO UD PRN; Protocol PRN Reason: Hypoglycemia Protocol Stop: 01/09/20 18:48 Lorazepam (Ativan) 4 mg in 8 mls @ 4 mls/min IV Q4H [facility] Stop: 01/10/20 21:59 Last Admin: 12/16/19 09:35 Dose: 4 mls/min Documented by: Lorazepam (Ativan) 2 mg in 4 mls @ 4 mls/min IV Q2H PRN PRN Reason: RASS goal -1 Stop: 01/10/20 19:44 Lorazepam (Ativan) 1 mg in 2 mls @ 2 mls/min IV UD PRN; Protocol PRN Reason: EtOH Withdrawl AWSS Score 6,7 Stop: 01/10/20 19:44 Lorazepam (Ativan) 2 mg in 4 mls @ 4 mls/min IV UD PRN; Protocol PRN Reason: EtOH Withdrawl AWSS Score 8,9 Stop: 01/10/20 19:44 Lorazepam (Ativan) 3 mg in 6 mls @ 4 mls/min IV ONCE PRN; Protocol PRN Reason: EtOH Withdrawl AWSS Score >=10 Stop: 01/10/20 19:44 Last Admin: 12/12/19 07:51 Dose: 4 mls/min Documented by: Dexmedetomidine HCl 400 mcg/ (Sodium Chloride) 100 mls @ 27.06 mls/hr IV .Q3H42M [facility]; Protocol Stop: 12/17/19 10:29 Last Admin: 12/16/19 06:23 Dose: 1.1 mcg/kg/hr, 27.1 mls/hr Documented by: Folic Acid 1 mg/ Syringe 10 mls @ 5 mls[facility] [place] Stop: 01/13/20 17:59 Last Admin: 12/16/19 08:45 Dose: 5 mls/min Documented by: Acetaminophen (Ofirmev) 1,000 mg in 100 mls @ 400 mls/hr IV Q8H PRN PRN Reason: Fever Stop: 12/18/19 14:41 Last Infusion: 12/16/19 09:24 Dose: Infused Documented by: Potassium Chloride (K Cory / Wtr) 10 meq in 100 mls @ 100 mls/hr IV Q1H [facility] Stop: 12/16/19 10:14 Last Admin: 12/16/19 09:35 Dose: 100 mls/hr Documented by: Dextrose (D5w) 1,000 mls @ 125 mls/hr IV .Q8H [facility] Stop: 01/15/20 07:44 Last Admin: 12/16/19 08:44 Dose: 125 mls/hr Documented by: Insulin Aspart (Insulin Aspart 100 Units/Ml 3 Ml Pen) 0 units SC Q6H [facility] Stop: 01/11/20 17:59 Last Admin: 12/16/19 05:53 Dose: Not Given Documented by: Ketorolac Tromethamine (Ketorolac Tromethamine 15 Mg/Ml Vial) 15 mg IV Q6H PRN PRN Reason: Fever Stop: 12/19/19 17:20 Last Admin: 12/15/19 15:07 Dose: 15 mg Documented by: Losartan Potassium (Losartan Potassium 50 Mg Tab) 100 [facility] [place] Stop: 01/10/20 08:59 Last Admin: 12/16/19 08:46 Dose: 100 mg Documented by: Magnesium Hydroxide (Magnesium Hydroxide Susp 30 Ml Udc) 30 ml PO Q12H PRN PRN Reason: Constipation Stop: 01/09/20 18:48 Miscellaneous (Carbohydrates For Hypoglycemia ) 15 - 30 gm PO UD PRN PRN Reason: Hypoglycemia Protocol Stop: 01/09/20 18:48 Miscellaneous (Icu Electrolyte Replacement Protocol) 1 ea N/A UD PRN PRN Reason: for e-lyte repletion Stop: 12/18/19 19:44 Neomycin/Polymyxin/Bacitracin (Neomycin/Polymyx/Bacitr Oint 15 Gm Tube) 1 appln EXT BID [facility] Stop: 01/09/20 20:59 Last Admin: 12/16/19 08:46 Dose: 1 appln Documented by: Nortriptyline HCl (Nortriptyline Hcl 25 Mg Cap) 75 mg PO HS [facility] Stop: 01/09/20 20:59 Last Admin: 12/11/19 20:29 Dose: Not Given Documented by: Ondansetron HCl (Ondansetron Inj 2 Mg/Ml 2 Ml Vial) 4 mg IV Q6H PRN PRN Reason: Nausea Stop: 01/09/20 18:48 Pantoprazole Sodium (Pantoprazole 40 Mg Tab) 40 mg PO DAILY [facility] Stop: 01/10/20 08:59 Last Admin: 12/16/19 08:46 Dose: 40 mg Documented by: Polyethylene Glycol (Polyethylene (Miralax) 17 Gm Pack) 17 gm PO DAILY PRN PRN Reason: Constipation Stop: 01/09/20 18:48 Thiamine HCl (Thiamine Hcl 100 Mg Tab) 100 mg PO QAM [facility] Stop: 01/09/20 19:59 Last Admin: 12/16/19 09:05 Dose: 100 mg Documented by: Ziprasidone (Ziprasidone 20 Mg/Ml Sdv) 10 mg IM Q12H PRN PRN Reason: Agitation Stop: 01/10/20 18:30 Last Admin: 12/15/19 18:00 Dose: 10 mg Documented by:
[2019-12-16] MEDS ORDERED: LORazepam 5 MG/10 ML VIAL IV PRN (10:13)
--- NOTE | 2019-12-16 10:25 | XRay Report ---
XR chest 1V portable CLINICAL HISTORY: fever COMPARISON STUDY: 12/14/2019 FINDINGS: The heart is the upper limits of normal in size. There are bilateral pulmonary opacities. L ikely diagnostic considerations include a bilateral pneumonitis versus pulmonary edema. Clinical and radiographic follow-up is recommended.[ IMPRESSION: Progressive bilateral pulmonary airspace opacities, suspicious for a pneumonitis. Pulmona ry edema could appear similar but is felt to be statistically less likely. Clinical and radiographic follow-up is recommended. ACT 112: Negative or not required by law. Electronically signed by: Pj Blake M.D. 12/16/2019 10:24 AM
[2019-12-16 10:54] LABS: Appearance Urine Clear (Clear); Bacteria Urine Automated Negative (Negative); Bilirubin Urine Negative (Negative); Blood Urine Trace (Negative); Color Urine Yellow; Glucose Urine UA Negative (Negative); Ketones Urine 3+ (Negative); Leukocyte Esterase Urine 1+ (Negative); Nitrite Urine Negative (Negative); Protein Urine Negative (Negative); RBC Urine Automated 0-4 /hpf (0-4); Specific Gravity Urine 1.021 (1.000-1.030); Urobilinogen Urine Negative (Negative); pH Urine 7.5 (4.5-7.5)
[2019-12-16] MEDS: THIAMINE HCL 500 MG in 0.9 % SODIUM CHLORIDE 100 ML IV SCH ×2 (11:56→21:32)
[2019-12-16] MEDS ORDERED: Nursing to Pharmacy Communication SCH ×3 (12:30→17:45)
[2019-12-16] MEDS ORDERED: FUROSEMIDE 40 MG in SYRINGE 0 ML IV ONE (12:45)
[2019-12-16] MEDS: LORazepam 5 MG/10 ML VIAL IV SCH ×4 (12:51→23:38)
--- NOTE | 2019-12-16 16:10 | Electrocardiogram Report ---
Test Reason : Blood Pressure : / mmHG Vent. Rate : 060 BPM Atrial Rate : 060 BPM P-R Int : 168 ms QRS Dur : 076 ms QT Int : 472 ms P-R-T Axes : 023 037 065 degrees QTc Int : 472 ms Normal sinus rhythm Normal ECG When compared with ECG of 10-DEC-2019 14:12, Vent. rate has decreased BY 57 BPM Confirmed by Joe Amador ([id number]) on 12/16/2019 4:10:09 PM Referred By: REFERRED SELF Confirmed By:Joe Amador
[2019-12-16] MEDS ORDERED: FUROSEMIDE 20 MG in SYRINGE 0 ML IV ONE (21:21)
[2019-12-17] MEDS: DEXMEDETOMIDINE HCL 400 MCG in 0.9 % SODIUM CHLORIDE 96 ML IV SCH ×8 (01:21→21:38)
[2019-12-17] MEDS: THIAMINE HCL 500 MG in 0.9 % SODIUM CHLORIDE 100 ML IV SCH (04:23)
[2019-12-17 04:38] LABS: Basophils # (auto) 0.02 K/uL (0-0.2); Basophils % (auto) 0.3 %; Eosinophils # (auto) 0.24 K/uL (0-0.5); Eosinophils % (auto) 3.3 %; Hemoglobin 11.9 g/dL (14.0-18.0); Immature Granulocytes # (auto) 0.02 K/uL (0.00-0.02); Immature Granulocytes % (auto) 0.3 %; Lymphocytes # (auto) 1.45 K/uL (1.2-3.4); Lymphocytes % (auto) 20.1 %; Mean Corpuscular Hemoglobin 34.8 pg (25-34); Mean Corpuscular Volume 99.4 fL (80-100); Monocytes # (auto) 1.54 K/uL (0.11-0.59); Monocytes % (auto) 21.3 %; Neutrophils # (auto) 3.96 K/uL (1.4-6.5); Neutrophils % (auto) 54.7 %; Platelet Count 202 K/uL (130-400); RDW Coefficient of Variation 12.9 % (11.5-14.5); RDW Standard Deviation 47.1 fL (36.4-46.3); Red Blood Count 3.42 M/uL (4.7-6.1); White Blood Count 7.23 K/uL (4.8-10.8)
[2019-12-17 05:02] LABS: Albumin Level 2.9 gm/dl (3.4-5.0); BUN Creatinine Ratio 6.4 (10-20); Calcium 7.8 mg/dl (8.5-10.1); Creatinine Clr Calc Pharmacy 121.8 ml/min; Est GFR (Non-African American) 104.4; Magnesium 1.8 mg/dl (1.8-2.4); Potassium 3.1 mmol/L (3.5-5.1)
[2019-12-17] MEDS: DEXTROSE 5% 1,000 ML IV SCH ×2 (05:03→17:52)
[2019-12-17 05:05] LABS: Albumin Globulin Ratio 0.6 (0.9-2); Bilirubin,Total 0.6 mg/dl (0.2-1); Globulin 4.6 gm/dl (2.5-4.0); Phosphorus 2.8 mg/dl (2.5-4.9); Total Protein 7.5 gm/dl (6.4-8.2)
[2019-12-17] MEDS ORDERED: MAGNESIUM SULFATE / D5W 1 GM/100 ML BAG IV ONE (05:30)
[2019-12-17] MEDS: LORazepam 5 MG/10 ML VIAL IV SCH ×3 (06:00→17:49)
[2019-12-17] MEDS: POTASSIUM CHLORIDE / WTR 10 MEQ/100 ML PLCT IV SCH ×4 (06:00→09:30)
[2019-12-17] MEDS ORDERED: ICU ELECTROLYTE REPLACEMENT PROTOCOL PRN (07:34)
--- NOTE | 2019-12-17 07:37 | Critical Care Progress Note ---
Date of Service December 17, 2019 Assessment & Plan (1) Alcohol withdrawal: Impression: 39-year-old male with a known history of alcohol abuse admitted with seizure-like activity felt to be due to alcohol withdrawal. He is now developed increasing agitation. Attributed to alcohol withdrawal/delirium tremens. Possible the patient may have had some mild concussion also contributing when he fell and hit his head. --Metabolic encephalopathy Secondary to alcohol withdrawal Continue with alcohol withdrawal protocol Keep RASS -1 Replace electrolytes as needed. Aspiration precautions --New onset fever Could be a sign of alcohol withdrawal UA 12/16/2019 does not show any signs of infection Chest x-ray shows signs of pulmonary edema but no signs of clear infiltrate --Transaminitis Could be from chronic alcohol use Trending down Monitor --Macrocytic anemia Likely from chronic alcohol use Monitor H&H Continue with thiamine and folic acid --Hypokalemia Being replaced --Prophylaxis VTE: Lovenox GI: None Lines: Peripheral, Dixon Diet: N.p.o. Plan: In/out: -527, urine output [id number] Patient still spiking low-grade fever. Continue with Tylenol as needed. No clear signs of infection. Patient is having diarrhea since last couple of nights it is watery. Patient has not been on any antibiotics I will order C. difficile. The likelihood of C. difficile is low. Try to titrate off Precedex as possible. Continue with lorazepam 5 mg every 6 hours for the time being will gradually titrated down to every 8 if possible. DC Dixon today. Will give another dose of Lasix today. I have personally spent 37 minutes of critical care time in the direct management of this patient. This is a life/limb threatening event. This includes time spent evaluating patient, direct bedside care, chart review, placing orders, interpretation of diagnostic studies, discussion with consultants, patient, and family members, as well as other required patient management activities. This time is exclusive of all separately billable procedures, and teaching time and separate from and in addition to any other critical care service time. Please note the above document was generated using voice recognition software. It may contain grammatical, syntax or spelling errors. (2) Elevated LFTs: (3) Seizure-like activity: (4) DTs (delirium tremens): Admission and Anticipated Discharge Date Admission Date: December 10, 2019 Subjective Patient seen and examined at bedside. No acute distress, no adverse events overnight. Patient was on 0.6 of Precedex at the time of examination. Is answering simple questions. He is eating on his own. Still on one-to-one. Patient is having diarrhea since the last 3 nights, it is watery, not foul-s melling. Review of Systems Review of Systems: All systems reviewed & are unremarkable except as noted in Subjective Physical Exam Physical Exam: Constitutional: No acute distress HEENT: EOMI, PERRLA, positive bruising is appreciated in the left lateral supraorbital as well as infraorbital region Respiratory system: Decreased air entry bilaterally, no wheeze, no rhonchi, mild crackles bilateral lower lobes CVS: S1-S2 positive, no murmurs or gallops Abdomen: Soft, nontender, nondistended, positive bowel sounds x4 Extremities: +2 pulses bilaterally radialis/ dorsalis pedis, no cyanosis, no edema Neuro: Awake alert oriented x3 Psych: Normal mood and affect G/U: Positive Dixon Skin: no rashes, warm and dry Lymphatic: no cervical or axillary lymphadenopathy Results & Data Results & Data ([facility]) Vital Signs (Past 12 Hours) Vital Signs Temp Pulse BP Pulse Ox 12/17/19 07:06 37.8 C H 63 139/82 96 12/17/19 07:00 37.8 C H 64 96 12/17/19 06:06 38.0 C H 66 150/75 H 90 12/17/19 06:00 38.0 C H 67 90 12/17/19 05:06 38.2 C H 72 148/87 H 97 12/17/19 05:00 38.1 C H 71 96 12/17/19 04:06 37.9 C H 69 129/70 95 12/17/19 04:00 37.9 C H 64 93 12/17/19 03:06 37.9 C H 65 120/68 93 12/17/19 03:00 37.9 C H 65 93 12/17/19 02:06 37.8 C H 66 129/74 93 12/17/19 02:00 37.8 C H 67 96 12/17/19 01:06 38.0 C H 65 124/71 93 12/17/19 01:00 38.1 C H 66 96 12/17/19 00:06 38.4 C H 71 150/95 H 95 12/17/19 00:00 38.4 C H 73 94 12/16/19 23:32 38.4 C H 72 171/78 H 97 12/16/19 23:00 38.4 C H 74 95 12/16/19 22:00 38.3 C H 75 96 12/16/19 21:06 38.2 C H 75 140/83 96 12/16/19 21:00 38.2 C H 72 96 12/16/19 20:10 38.3 C H 71 138/88 94 12/16/19 20:06 38.3 C H 74 138/88 94 12/16/19 20:00 38.3 C H 73 95 12/17/19 04:29 12/17/19 04:29 Coding Level of Care Code Critical Care 1st 30-74 mins Diagnoses Alcohol withdrawal F10.239 Elevated LFTs R79.89 Seizure-like activity R56.9 DTs (delirium tremens) F10.231 Time Spent (min) 37
[2019-12-17] MEDS ORDERED: FUROSEMIDE 40 MG in SYRINGE 0 ML IV ONE (08:00)
[2019-12-17] MEDS ORDERED: POTASSIUM CHLORIDE CRTAB 20 MEQ TABCR PO STA (08:09)
[2019-12-17] MEDS ORDERED: POTASSIUM CHLORIDE CRTAB 20 MEQ TABCR PO SCH (08:09)
[2019-12-17] MEDS: MAGNESIUM SULFATE / D5W 1 GM/100 ML BAG IV SCH ×2 (08:21→10:35)
[2019-12-17] MEDS: PANTOprazole 40 MG TAB PO SCH (08:22)
[2019-12-17] MEDS: CYANOCOBALAMIN 500 MCG TABLET (VITAMIN B-12) PO SCH (08:22)
[2019-12-17] MEDS: LOSARTAN POTASSIUM 50 MG TAB PO SCH (08:22)
[2019-12-17] MEDS: ENOXAPARIN INJ 40 MG/0.4 ML SYR SQ SCH (08:23)
[2019-12-17] MEDS: FOLIC ACID 1 MG in SYRINGE 9.8 ML IV SCH (08:23)
[2019-12-17] MEDS: INSULIN ASPART 100 UNITS/ML 3 ML PEN SC SCH ×4 (08:26→21:24)
[2019-12-17] MEDS ORDERED: PHARMACY GLYCEMIC MGMT CONSULT PRN (10:15)
[2019-12-17] MEDS: NEOMYCIN/POLYMYX/BACITR OINT 15 GM TUBE EXT SCH ×2 (10:26→21:23)
[2019-12-17] MEDS ORDERED: THIAMINE HCL 100 MG in SYRINGE 9 ML IV SCH (12:00)
[2019-12-17] MEDS ORDERED: AMOXICILLIN 500 MG CAP PO ONE (15:15)
--- NOTE | 2019-12-17 19:23 | Hospitalist Progress Note ---
Date of Service December 17, 2019 Assessment & Plan (1) Seizure-like activity: This is a 39-year-old male who has significant past medical history of HTN, HLD, GERD, prediabetes who presents to ED after sustaining seizure-like activity prior to arrival. Seizure like activity 2/2 alcohol withdrawal, and in the setting of electrolyte abnormalities No prior hx of seizure in past admitted to PCU initially, currently in ICU, on Precedex, IV Ativan, also required Geodon started keppra 500mg bid by admitting provider, discussed with neurology, Keppra discontinued as seizure seems to be secondary to alcohol withdrawal EEG ordered - unremarkable Neurology consulted - appreciate their input Patient will not be able to drive for 6 months, patient aware, paperwork to [employer] submitted tx for alcohol withdrawal as below (2) Alcohol withdrawal: encourage alcohol abstinence Gave Banana Bag x 1 on admission daily thiamine and folic acid Librium taper, PRN lorazepam for active withdrawal, patient was also loaded with gabapentin, however he had severe withdrawal and required admission to ICU Currently on IV Precedex, IV Ativan, also Geodon prn Due to being aggressive and agitated, required 4 point restraints seizure precautions Patient in need of alcohol rehab after discharge Fever -Seems to be secondary to autonomic instability, less likely secondary to infectious process -Patient has been sedated/obtunded, possible risk for aspiration, Dixon catheter placed when admitted to ICU, will also check skin around IV lines for any signs of infection/erythema -Obtained blood cultures, UA/urine culture, chest x-ray -started empiric antibiotic - zosyn, vanco, d/c'ed next day by ICU staff -UA unremarkable, chest x-ray shows some pulm. edema, was given IV lasix, blood cultures no growth to date -Continue to monitor for any infectious process (3) Hypomagnesemia: - cont. to monitor and replete as needed Hypokalemia -Replete and monitor (4) Elevated LFTs: likely in setting of ETOH use, prior elevated lfts in outpt lab last US abd 04/2017 revealed mild hepatomegaly with diffuse increased echogenicity of liver hold statin, obtain US of abd RUQ Ultrasound showed some sludge and polyp in gallbladder, recommend to follow-up after his active alcohol withdrawal LFTs trending down (5) Prediabetes: Pt with hyperglycemia, BSG 249 on admission Last A1c 6.2 12/12/2018 Obtained Hgb A1c 6.3% Accu-Cheks, NovoLog per protocol (6) HTN (hypertension): BP elevated in setting of withdrawal continue losartan but hold HCTZ monitor (7) Hyperlipidemia: hold statin in setting of elevated LFTS Full Code Disposition: ICU Follow up: PCP Dr. Langford upon discharge Admission and Anticipated Discharge Date Admission Date: December 10, 2019 Subjective Patient is sitting up in bed, in no acute distress. Continues to use high doses of IV Ativan, IV Precedex. Continues to be febrile. Mother present at the bedside. Review of Systems Review of Systems: All systems reviewed & are unremarkable except as noted in HPI & below Constitutional: no fever and no chills Respiratory: no cough and no dyspnea Cardiovascular: no chest pain and no palpitations Gastrointestinal: no abdominal pain, no nausea and no vomiting Physical Exam Physical Exam: Constitutional: WD/WN, male, sitting up in bed in NAD Head: Normocephalic, abrasion to left and lateral forehead with erythematous wound bed, no drainage Eyes: PERRL, EOMI, conjunctivae normal, anicteric sclerae ENMT: external ear and nose normal, oropharynx normal Neck: trachea midline, no thyromegaly normal visual inspection Respiratory: normal respiratory effort, lungs clear to auscultation, no wheeze, +rhonchi. Normal insp/exp effort, no accessory muscle use Cardiovascular: rrr, no murmur, no edema Vessels: no JVD or carotid bruit Chest: normal inspection of chest Abdomen: normal bowel sounds, nontender, mildly distended Musculoskeletal: no cyanosis or clubbing, moves extremities spontaneously Skin: no rashes, warm and dry normal turgor Neurologic: PERRL, EOMI, no face palsy, moves all extremities Psychiatric: able to answer some questions appropriately Results & Data Results & Data ([facility]) Vital Signs (Past 12 Hours) Vital Signs Temp Pulse Resp BP Pulse Ox 12/17/19 16:46 94 H 12/17/19 14:06 106 H 22 140/100 100 12/17/19 13:28 108 H 24 164/95 H 100 12/17/19 10:06 73 148/80 H 100 12/17/19 09:00 97 H 97 12/17/19 08:06 37.7 C H 72 134/95 99 12/17/19 08:00 65 Laboratory Results 12/17/19 12/17/19 12/17/19 Range/Units 17:02 11:28 09:10 WBC (4.8-10.8) K/uL RBC (4.7-6.1) M/uL Hgb (14.0-18.0) g/dL Hct (42-52) % MCV (80-100) fL MCH (25-34) pg MCHC (32-36) g/dL RDW Std Deviation (36.4-46.3) fL RDW Coeff of Cori (11.5-14.5) % Plt Count (130-400) K/uL MPV (7.4-10.4) fL Immature Gran % (Auto) % Neut % (Auto) % Lymph % (Auto) % [place] % (Auto) % Eos % (Auto) % Baso % (Auto) % Neut # (Auto) (1.4-6.5) K/uL Lymph # (Auto) (1.2-3.4) K/uL [place] # (Auto) (0.11-0.59) K/uL Eos # (Auto) (0-0.5) K/uL Baso # (Auto) (0-0.2) K/uL Immature Gran # (Auto) (0.00-0.02) K/uL Sodium (136-145) mmol/L Potassium (3.5-5.1) mmol/L Chloride (98-107) mmol/L Carbon Dioxide (21-32) mmol/L Anion Gap (3-11) BUN (7-18) mg/dl Creatinine (0.6-1.4) mg/dl Est Cr Clr Drug Dosing ml/min Est GFR ( Amer) Est GFR (Non-Af Amer) BUN/Creatinine Ratio (10-20) Glucose (70-99) mg/dl POC Glucose 132 H 92 (70-99) mg/dl Calcium (8.5-10.1) mg/dl Phosphorus (2.5-4.9) mg/dl Magnesium (1.8-2.4) mg/dl Total Bilirubin (0.2-1) mg/dl AST (15-37) U/L ALT (12-78) U/L Alkaline Phosphatase (45-117) U/L Total Protein (6.4-8.2) gm/dl Albumin (3.4-5.0) gm/dl Globulin (2.5-4.0) gm/dl Albumin/Globulin Ratio (0.9-2) Stl C. diff Tox B Gene Negative Cdiff Gene (Neg) 12/17/19 12/17/19 12/17/19 Range/Units 07:43 04:29 04:29 WBC 7.23 (4.8-10.8) K/uL RBC 3.42 L (4.7-6.1) M/uL Hgb 11.9 L (14.0-18.0) g/dL Hct 34.0 L (42-52) % MCV 99.4 (80-100) fL MCH 34.8 H (25-34) pg MCHC 35.0 (32-36) g/dL RDW Std Deviation 47.1 H (36.4-46.3) fL RDW Coeff of Cori 12.9 (11.5-14.5) % Plt Count 202 (130-400) K/uL MPV 11.0 H (7.4-10.4) fL Immature Gran % (Auto) 0.3 % Neut % (Auto) 54.7 % Lymph % (Auto) 20.1 % [place] % (Auto) 21.3 % Eos % (Auto) 3.3 % Baso % (Auto) 0.3 % Neut # (Auto) 3.96 (1.4-6.5) K/uL Lymph # (Auto) 1.45 (1.2-3.4) K/uL [place] # (Auto) 1.54 H (0.11-0.59) K/uL Eos # (Auto) 0.24 (0-0.5) K/uL Baso # (Auto) 0.02 (0-0.2) K/uL Immature Gran # (Auto) 0.02 (0.00-0.02) K/uL Sodium 139 (136-145) mmol/L Potassium 3.1 L (3.5-5.1) mmol/L Chloride 105 (98-107) mmol/L Carbon Dioxide 27 (21-32) mmol/L Anion Gap 7.0 (3-11) BUN 6 L (7-18) mg/dl Creatinine 0.92 (0.6-1.4) mg/dl Est Cr Clr Drug Dosing 121.8 ml/min Est GFR ( Amer) 121.0 Est GFR (Non-Af Amer) 104.4 BUN/Creatinine Ratio 6.4 L (10-20) Glucose 132 H (70-99) mg/dl POC Glucose 168 H (70-99) mg/dl Calcium 7.8 L (8.5-10.1) mg/dl Phosphorus 2.8 (2.5-4.9) mg/dl Magnesium 1.8 (1.8-2.4) mg/dl Total Bilirubin 0.6 (0.2-1) mg/dl AST 55 H (15-37) U/L ALT 74 (12-78) U/L Alkaline Phosphatase 107 (45-117) U/L Total Protein 7.5 (6.4-8.2) gm/dl Albumin 2.9 L (3.4-5.0) gm/dl Globulin 4.6 H (2.5-4.0) gm/dl Albumin/Globulin Ratio 0.6 L (0.9-2) Stl C. diff Tox B Gene (Neg) 12/16/19 Range/Units 20:31 WBC (4.8-10.8) K/uL RBC (4.7-6.1) M/uL Hgb (14.0-18.0) g/dL Hct (42-52) % MCV (80-100) fL MCH (25-34) pg MCHC (32-36) g/dL RDW Std Deviation (36.4-46.3) fL RDW Coeff of Cori (11.5-14.5) % Plt Count (130-400) K/uL MPV (7.4-10.4) fL Immature Gran % (Auto) % Neut % (Auto) % Lymph % (Auto) % [place] % (Auto) % Eos % (Auto) % Baso % (Auto) % Neut # (Auto) (1.4-6.5) K/uL Lymph # (Auto) (1.2-3.4) K/uL [place] # (Auto) (0.11-0.59) K/uL Eos # (Auto) (0-0.5) K/uL Baso # (Auto) (0-0.2) K/uL Immature Gran # (Auto) (0.00-0.02) K/uL Sodium (136-145) mmol/L Potassium (3.5-5.1) mmol/L Chloride (98-107) mmol/L Carbon Dioxide (21-32) mmol/L Anion Gap (3-11) BUN (7-18) mg/dl Creatinine (0.6-1.4) mg/dl Est Cr Clr Drug Dosing ml/min Est GFR ( Amer) Est GFR (Non-Af Amer) BUN/Creatinine Ratio (10-20) Glucose (70-99) mg/dl POC Glucose 130 H (70-99) mg/dl Calcium (8.5-10.1) mg/dl Phosphorus (2.5-4.9) mg/dl Magnesium (1.8-2.4) mg/dl Total Bilirubin (0.2-1) mg/dl AST (15-37) U/L ALT (12-78) U/L Alkaline Phosphatase (45-117) U/L Total Protein (6.4-8.2) gm/dl Albumin (3.4-5.0) gm/dl Globulin (2.5-4.0) gm/dl Albumin/Globulin Ratio (0.9-2) Stl C. diff Tox B Gene (Neg) Medications Administered Current Inpatient Medications Acetaminophen (Acetaminophen 325 Mg Supp) 325 mg MS Q4H PRN PRN Reason: Fever Stop: 01/12/20 23:57 Last Admin: 12/14/19 13:11 Dose: 325 mg Documented by: Al Hydrox/Mg Hydrox/Simethicone (Aluminum/Magnesium Susp 30 Ml Udc) 15 ml PO Q4H PRN PRN Reason: Dyspepsia Stop: 01/09/20 18:48 Amoxicillin (Amoxicillin 500 Mg Cap) 500 mg PO TID MARIOLA Stop: 12/24/19 09:01 Cyanocobalamin (Cyanocobalamin 500 Mcg Tablet (Vitamin B-12)) 1,000 mcg PO QAM MARIOLA Stop: 01/11/20 08:59 Last Admin: 12/17/19 08:22 Dose: 1,000 mcg Documented by: Enoxaparin Sodium (Enoxaparin Inj 40 Mg/0.4 Ml Syr) 40 mg SQ DAILY MARIOLA Stop: 01/11/20 08:59 Last Admin: 12/17/19 08:23 Dose: 40 mg Documented by: Folic Acid (Folic Acid 1 Mg Tab) 1 mg PO QAM [facility] Stop: 01/09/20 19:59 Last Admin: 12/14/19 08:10 Dose: Not Given Documented by: Glucagon (Glucagon For Inj 1 Mg Vial) 1 mg SQ UD PRN; Protocol PRN Reason: Hypoglycemia Protocol Stop: 01/09/20 18:48 Glucose (Glucose 10 Tabs/Tube) 4 - 8 tabs PO UD PRN; Protocol PRN Reason: Hypoglycemia Protocol Stop: 01/09/20 18:48 Glucose (Glucose 40% Gel 15 Gm Tube) 15 - 30 gm PO UD PRN; Protocol PRN Reason: Hypoglycemia Protocol Stop: 01/09/20 18:48 Dexmedetomidine HCl 400 mcg/ (Sodium Chloride) 100 mls @ 12.3 mls/hr IV .Q8H8M [facility]; Protocol Stop: 12/18/19 10:29 Last Admin: 12/17/19 18:58 Dose: Not Given Documented by: Folic Acid 1 mg/ Syringe 10 mls @ 5 [facility] Stop: 01/13/20 17:59 Last Admin: 12/17/19 08:23 Dose: 5 mls/min Documented by: Acetaminophen (Ofirmev) 1,000 mg in 100 mls @ 400 mls/hr IV Q8H PRN PRN Reason: Fever Stop: 12/18/19 14:41 Last Infusion: 12/16/19 18:25 Dose: Infused Documented by: Lorazepam (Ativan) 5 mg in 10 mls @ 4 mls/min IV Q4H PRN PRN Reason: agitation(RASS > 0) or JARETH >5 Stop: 01/15/20 10:12 Thiamine HCl 100 mg/ Syringe 10 mls @ 2 mls/min IV Q24H [facility] Stop: 01/16/20 11:59 Last Admin: 12/17/19 12:33 Dose: 2 mls/min Documented by: Lorazepam (Ativan) 5 mg in 10 mls @ 4 mls/min IV Q6H [facility] Stop: 01/15/20 11:59 Last Admin: 12/17/19 17:49 Dose: 4 mls/min Documented by: Insulin Aspart (Insulin Aspart 100 Units/Ml 3 Ml Pen) 0 units SC ACHS MARIOLA Stop: 01/15/20 16:29 Last Admin: 12/17/19 17:54 Dose: 2 units Documented by: Ketorolac Tromethamine (Ketorolac Tromethamine 15 Mg/Ml Vial) 15 mg IV Q6H PRN PRN Reason: Fever Stop: 12/19/19 17:20 Last Admin: 12/15/19 15:07 Dose: 15 mg Documented by: Losartan Potassium (Losartan Potassium 50 Mg Tab) 100 mg PO QAM MARIOLA Stop: 01/10/20 08:59 Last Admin: 12/17/19 08:22 Dose: 100 mg Documented by: Magnesium Hydroxide (Magnesium Hydroxide Susp 30 Ml Udc) 30 ml PO Q12H PRN PRN Reason: Constipation Stop: 01/09/20 18:48 Miscellaneous (Carbohydrates For Hypoglycemia ) 15 - 30 gm PO UD PRN PRN Reason: Hypoglycemia Protocol Stop: 01/09/20 18:48 Miscellaneous (Icu Electrolyte Replacement Protocol) 1 ea N/A UD PRN PRN Reason: for e-lyte repletion Stop: 12/24/19 07:33 Neomycin/Polymyxin/Bacitracin (Neomycin/Polymyx/Bacitr Oint 15 Gm Tube) 1 appln EXT BID MARIOLA Stop: 01/09/20 20:59 Last Admin: 12/17/19 10:26 Dose: 1 appln Documented by: Nortriptyline HCl (Nortriptyline Hcl 25 Mg Cap) 75 mg PO HS MARIOLA Stop: 01/09/20 20:59 Last Admin: 12/11/19 20:29 Dose: Not Given Documented by: Ondansetron HCl (Ondansetron Inj 2 Mg/Ml 2 Ml Vial) 4 mg IV Q6H PRN PRN Reason: Nausea Stop: 01/09/20 18:48 Pantoprazole Sodium (Pantoprazole 40 Mg Tab) 40 mg PO DAILY MARIOLA Stop: 01/10/20 08:59 Last Admin: 12/17/19 08:22 Dose: 40 mg Documented by: Polyethylene Glycol (Polyethylene (Miralax) 17 Gm Pack) 17 gm PO DAILY PRN PRN Reason: Constipation Stop: 01/09/20 18:48
[2019-12-17] MEDS: AMOXICILLIN 500 MG CAP PO SCH (21:24)
[2019-12-17] MEDS: NORTRIPTYLINE HCL 25 MG CAP PO SCH (21:39)
[2019-12-18] MEDS: LORazepam 5 MG/10 ML VIAL IV SCH ×2 (01:15→06:34)
[2019-12-18 05:06] LABS: Basophils # (auto) 0.04 K/uL (0-0.2); Basophils % (auto) 0.4 %; Eosinophils % (auto) 2.1 %; Hematocrit (blood only) 33.5 % (42-52); Hemoglobin 11.5 g/dL (14.0-18.0); Immature Granulocytes # (auto) 0.03 K/uL (0.00-0.02); Immature Granulocytes % (auto) 0.3 %; Lymphocytes % (auto) 18.1 %; Mean Corpuscular Hemoglobin 33.8 pg (25-34); Mean Corpuscular Hgb Conc 34.3 g/dL (32-36); Mean Corpuscular Volume 98.5 fL (80-100); Mean Platelet Volume 11.7 fL (7.4-10.4); Monocytes # (auto) 2.24 K/uL (0.11-0.59); Monocytes % (auto) 23.8 %; Neutrophils % (auto) 55.3 %; Platelet Count 218 K/uL (130-400); RDW Coefficient of Variation 13.1 % (11.5-14.5); RDW Standard Deviation 47.2 fL (36.4-46.3); White Blood Count 9.41 K/uL (4.8-10.8)
[2019-12-18 05:36] LABS: Albumin Level 2.9 gm/dl (3.4-5.0); BUN Creatinine Ratio 7.2 (10-20); Calcium 8.2 mg/dl (8.5-10.1); Creatinine Clr Calc Pharmacy 123.2 ml/min; Est GFR (African American) 122.6; Est GFR (Non-African American) 105.8; Magnesium 2.3 mg/dl (1.8-2.4); Potassium 3.1 mmol/L (3.5-5.1)
[2019-12-18 05:53] LABS: Albumin Globulin Ratio 0.6 (0.9-2); Bilirubin,Total 0.6 mg/dl (0.2-1); Globulin 4.6 gm/dl (2.5-4.0); Phosphorus 3.9 mg/dl (2.5-4.9); Total Protein 7.5 gm/dl (6.4-8.2)
[2019-12-18] MEDS: DEXMEDETOMIDINE HCL 400 MCG in 0.9 % SODIUM CHLORIDE 96 ML IV SCH ×2 (07:56→08:15)
[2019-12-18] MEDS: LOSARTAN POTASSIUM 50 MG TAB PO SCH (08:12)
[2019-12-18] MEDS: PANTOprazole 40 MG TAB PO SCH (08:12)
[2019-12-18] MEDS: CYANOCOBALAMIN 500 MCG TABLET (VITAMIN B-12) PO SCH (08:13)
[2019-12-18] MEDS: ENOXAPARIN INJ 40 MG/0.4 ML SYR SQ SCH (08:13)
[2019-12-18] MEDS: INSULIN ASPART 100 UNITS/ML 3 ML PEN SC SCH ×4 (08:17→20:37)
[2019-12-18] MEDS: NEOMYCIN/POLYMYX/BACITR OINT 15 GM TUBE EXT SCH ×2 (08:18→20:36)
[2019-12-18] MEDS: AMOXICILLIN 500 MG CAP PO SCH ×3 (08:18→20:36)
[2019-12-18] MEDS: FOLIC ACID 1 MG in SYRINGE 9.8 ML IV SCH (08:23)
[2019-12-18] MEDS: POTASSIUM CHLORIDE CRTAB 20 MEQ TABCR PO SCH ×3 (08:23→17:31)
--- NOTE | 2019-12-18 09:15 | Critical Care Progress Note ---
Date of Service December 18, 2019 Assessment & Plan (1) Alcohol withdrawal: Impression: 39-year-old male with a known history of alcohol abuse admitted with seizure-like activity felt to be due to alcohol withdrawal. He is now developed increasing agitation. Attributed to alcohol withdrawal/delirium tremens. Possible the patient may have had some mild concussion also contributing when he fell and hit his head. --Metabolic encephalopathy Secondary to alcohol withdrawal Continue with alcohol withdrawal protocol Keep RASS -1 Replace electrolytes as needed. Aspiration precautions -- UTI UA 12/14/2019 growing enterococcus greater than 100,000 --> on antibiotic Chest x-ray shows signs of pulmonary edema but no signs of clear infiltrate --Transaminitis Could be from chronic alcohol use Trending down Monitor --Macrocytic anemia Likely from chronic alcohol use Monitor H&H Continue with thiamine and folic acid --Hypokalemia Being replaced --Prophylaxis VTE: Lovenox GI: Pantoprazole Lines: Peripheral Diet: Regular Plan: In/out: -939, urine output 3256 Patient has UTI with enterococcus pansensitive. On antibiotics We will try to titrate off Precedex today and change Ativan to p.o. Normal trip [place] which the patient is taking nightly at home has been restarted yesterday I have personally spent 35 minutes of critical care time in the direct management of this patient. This is a life/limb threatening event. This includes time spent evaluating patient, direct bedside care, chart review, placing orders, interpretation of diagnostic studies, discussion with consultants, patient, and family members, as well as other required patient management activities. This time is exclusive of all separately billable procedures, and teaching time and separate from and in addition to any other critical care service time. Please note the above document was generated using voice recognition software. It may contain grammatical, syntax or spelling errors. (2) Elevated LFTs: (3) Seizure-like activity: (4) DTs (delirium tremens): Admission and Anticipated Discharge Date Admission Date: December 10, 2019 Subjective Patient seen and examined at bedside. No acute distress, no adverse events overnight. Patient was sitting on the chair about to have his breakfast. On Precedex 0.4 Answering all questions appropriately. Was asking when he can go home. Denies any chest pain, no shortness of breath, no belly pain. Positive bowel movements. C. difficile was negative yesterday. Review of Systems Review of Systems: All systems reviewed & are unremarkable except as noted in Subjective Physical Exam Physical Exam: Constitutional: No acute distress HEENT: EOMI, PERRLA Respiratory system: Good air entry bilaterally, no wheeze, no rhonchi, mild crackles bilateral lower lobes CVS: S1-S2 positive, no murmurs or gallops Abdomen: Soft, nontender, nondistended, positive bowel sounds x4 Extremities: +2 pulses bilaterally radialis/ dorsalis pedis, no cyanosis, no edema Neuro: Awake alert oriented x3 Psych: Normal mood and affect G/U: No Dixon Skin: no rashes, warm and dry Lymphatic: no cervical or axillary lymphadenopathy Results & Data Results & [facility]) Vital Signs (Past 12 Hours) Vital Signs Temp Pulse Resp BP Pulse Ox 12/18/19 06:07 72 21 117/66 90 12/18/19 05:07 74 21 142/89 H 95 12/18/19 04:06 64 22 123/75 95 12/18/19 04:00 37.2 C 12/18/19 03:06 66 21 112/65 93 12/18/19 02:06 69 22 119/63 94 12/18/19 01:06 70 25 H 111/70 90 12/18/19 00:06 67 22 128/65 93 12/18/19 00:00 37.0 C 12/17/19 23:06 71 15 118/67 92 12/17/19 22:46 74 25 H 141/80 H 94 12/18/19 04:26 12/18/19 04:26 Coding Level of Care Code Critical Care 1st 30-74 mins Diagnoses Alcohol withdrawal F10.239 Elevated LFTs R79.89 Seizure-like activity R56.9 DTs (delirium tremens) F10.231 Time Spent (min) 35
[2019-12-18] MEDS ORDERED: THIAMINE HCL 100 MG TAB PO ONE (10:15)
[2019-12-18] MEDS: LORazepam 1 MG TAB PO SCH ×2 (13:54→22:15)
[2019-12-18] MEDS ORDERED: Nursing to Pharmacy Communication SCH (14:30)
--- NOTE | 2019-12-18 16:07 | Hospitalist Progress Note ---
Date of Service December 18, 2019 Assessment & Plan (1) Alcohol withdrawal: Admitted through the ER with seizure-like activity likely secondary to alcohol withdrawal/alcoholism Transferred to ICU due to severe withdrawal symptoms and remained in ICU as of todayThere is 12/18/2019 Received Banana Bag x 1 on admission Daily thiamine and folic acid Received intravenous Precedex, IV Ativan and Geodon as needed in ICU Seizure precautions Appreciate courtesy van driver input and recommendation Has been on intravenous Ativan for withdrawal symptoms now Clinically much better and will start PT and OT Will need alcohol rehab (2) Seizure-like activity: This is a 39-year-old male who has significant past medical history of HTN, HLD, GERD, prediabetes who presents to ED after sustaining seizure-like activity prior to arrival. Seizure like activity 2/2 alcohol withdrawal, and in the setting of electrolyte abnormalities No prior hx of seizure in past admitted to PCU initially, currently in ICU, on Precedex, IV Ativan, also required Geodon started keppra 500mg bid by admitting provider, discussed with neurology, Keppra discontinued as seizure seems to be secondary to alcohol withdrawal EEG ordered - unremarkable Neurology consulted - appreciate their input Patient will not be able to drive for 6 months, patient aware, paperwork to DMV submitted (3) Hypomagnesemia: And other electrolytes abnormalities have been replaced (4) Elevated LFTs: likely in setting of ETOH use, prior elevated lfts in outpt lab last US abd 04/2017 revealed mild hepatomegaly with diffuse increased echogenicity of liver hold statin, obtain US of abd RUQ Ultrasound showed some sludge and polyp in gallbladder, recommend to follow-up after his active alcohol withdrawal LFTs trending down (5) Prediabetes: Pt with hyperglycemia, BSG 249 on admission Last A1c 6.2 12/12/2018 Obtained Hgb A1c 6.3% Accu-Cheks, NovoLog per protocol (6) HTN (hypertension): BP elevated in setting of withdrawal continue losartan but hold HCTZ monitor (7) UTI (urinary tract infection): Has had fever in ICU Received intravenous Zosyn and vancomycin and those were changed to oral ampicillin Urine culture grew Enterococcus faecalis and is pansensitive Has been getting oral ampicillin DVT prophylaxis Subcu Lovenox (8) Hyperlipidemia: hold statin in setting of elevated LFTS Full Code Disposition: ICU Follow up: PCP Dr. Langford upon discharge Admission and Anticipated Discharge Date Admission Date: December 10, 2019 Subjective 12/18/2019 The patient was seen and examined in ICU He has been feeling a lot better and denies any palpitation and/or tremor He complains today of some pain in the left ankle Review of Systems Review of Systems: All systems reviewed and are unremarkable except as noted below Cardiovascular: no palpitations Neurologic: no tremor(s) and no confusion Physical Exam Physical Exam: Lying in bed comfortably Constitutional: well developed and well nourished; no acute distress and not ill appearing Eyes: PERRL, conjunctivae normal, anicteric sclerae ENMT: external ear and nose normal, oropharynx normal Neck: trachea midline, no thyromegaly Respiratory: normal respiratory effort; no respiratory distress Auscultation: lungs clear to auscultation bilaterally Cardiovascular: Rate/Rhythm: regular rate and regular rhythm Heart Sounds: no murmur Gastrointestinal (Abdomen): Inspection/Auscultation: abdomen normal to inspection and normal bowel sounds Percussion/Palpation: abdomen soft; abdomen nontender Musculoskeletal: No acute arthritis involving any joint and examination of the left ankle did not show any significant abnormality Neurologic: moves all extremities; no focal motor deficits Motor/Sensory: + tremor (No significant tremors involving the outstretched hands) Psychiatric: A+Ox3, euthymic affect Lymphatic: no cervical or axillary lymphadenopathy Results & Data Results & Data ([facility]) Vital Signs (Past 12 Hours) Vital Signs Temp Pulse Resp BP Pulse Ox 12/18/19 14:08 103 H 20 153/137 H 99 12/18/19 13:15 115 H 19 170/87 H 98 12/18/19 11:00 82 24 159/82 H 96 12/18/19 10:07 72 19 149/88 H 93 12/18/19 09:07 77 28 H 144/85 H 95 12/18/19 08:07 87 13 136/75 96 12/18/19 08:00 68 12/18/19 07:06 67 21 131/78 93 12/18/19 06:07 72 21 117/66 90 12/18/19 05:07 74 21 142/89 H 95 12/18/19 04:06 64 22 123/75 95 12/18/19 04:00 37.2 C Laboratory Results Short CBC 12/18/19 Range/Units 04:26 WBC 9.41 (4.8-10.8) K/uL Hgb 11.5 L (14.0-18.0) g/dL Hct 33.5 L (42-52) % Plt Count 218 (130-400) K/uL BMP 12/18/19 04:26 Sodium 139 Potassium 3.1 L Chloride 106 Carbon Dioxide 28 BUN 7 Creatinine 0.91 Glucose 106 H Calcium 8.2 L Liver Function 12/18/19 Range/Units 04:26 Total Bilirubin 0.6 (0.2-1) mg/dl AST 69 H (15-37) U/L ALT 72 (12-78) U/L Alkaline Phosphatase 106 (45-117) U/L Albumin 2.9 L (3.4-5.0) gm/dl Medications Administered Current Inpatient Medications Acetaminophen (Acetaminophen 325 Mg Supp) 325 mg NM Q4H PRN PRN Reason: Fever Stop: 01/12/20 23:57 Last Admin: 12/14/19 13:11 Dose: 325 mg Documented by: Al Hydrox/Mg Hydrox/Simethicone (Aluminum/Magnesium Susp 30 Ml Udc) 15 ml PO Q4H PRN PRN Reason: Dyspepsia Stop: 01/09/20 18:48 Amoxicillin (Amoxicillin 500 Mg Cap) 500 mg PO TID [facility] Stop: 12/24/19 09:01 Last Admin: 12/18/19 13:54 Dose: 500 mg Documented by: Cyanocobalamin (Cyanocobalamin 500 Mcg Tablet (Vitamin B-12)) 1,000 mcg PO QAM MARIOLA Stop: 01/11/20 08:59 Last Admin: 12/18/19 08:13 Dose: 1,000 mcg Documented by: Enoxaparin Sodium (Enoxaparin Inj 40 Mg/0.4 Ml Syr) 40 mg SQ DAILY [facility] Stop: 01/11/20 08:59 Last Admin: 12/18/19 08:13 Dose: 40 mg Documented by: Folic Acid (Folic Acid 1 Mg Tab) 1 mg PO QAM MAROILA Stop: 01/09/20 19:59 Last Admin: 12/14/19 08:10 Dose: Not Given Documented by: Glucagon (Glucagon For Inj 1 Mg Vial) 1 mg SQ UD PRN; Protocol PRN Reason: Hypoglycemia Protocol Stop: 01/09/20 18:48 Glucose (Glucose 10 Tabs/Tube) 4 - 8 tabs PO UD PRN; Protocol PRN Reason: Hypoglycemia Protocol Stop: 01/09/20 18:48 Glucose (Glucose 40% Gel 15 Gm Tube) 15 - 30 gm PO UD PRN; Protocol PRN Reason: Hypoglycemia Protocol Stop: 01/09/20 18:48 Lorazepam (Ativan) 5 mg in 10 mls @ 4 mls/min IV Q4H PRN PRN Reason: agitation(RASS > 0) or JARETH >5 Stop: 01/15/20 10:12 Insulin Aspart (Insulin Aspart 100 Units/Ml 3 Ml Pen) 0 units SC ACHS [facility] Stop: 01/15/20 16:29 Last Admin: 12/18/19 12:25 Dose: 4 units Documented by: Ketorolac Tromethamine (Ketorolac Tromethamine 15 Mg/Ml Vial) 15 mg IV Q6H PRN PRN Reason: Fever Stop: 12/19/19 17:20 Last Admin: 12/15/19 15:07 Dose: 15 mg Documented by: Lorazepam (Lorazepam 1 Mg Tab) 5 mg PO Q8 MARIOLA Stop: 01/17/20 13:59 Last Admin: 12/18/19 13:54 Dose: 2.5 mg Documented by: Losartan Potassium (Losartan Potassium 50 Mg Tab) 100 mg PO QAM [facility] Stop: 01/10/20 08:59 Last Admin: 12/18/19 08:12 Dose: 100 mg Documented by: Magnesium Hydroxide (Magnesium Hydroxide Susp 30 Ml Udc) 30 ml PO Q12H PRN PRN Reason: Constipation Stop: 01/09/20 18:48 Miscellaneous (Carbohydrates For Hypoglycemia ) 15 - 30 gm PO UD PRN PRN Reason: Hypoglycemia Protocol Stop: 01/09/20 18:48 Miscellaneous (Icu Electrolyte Replacement Protocol) 1 ea N/A BID@ [facility]; Protocol Stop: 12/25/19 17:59 Neomycin/Polymyxin/Bacitracin (Neomycin/Polymyx/Bacitr Oint 15 Gm Tube) 1 appln EXT BID [facility] Stop: 01/09/20 20:59 Last Admin: 12/18/19 08:18 Dose: 1 appln Documented by: Nortriptyline HCl (Nortriptyline Hcl 25 Mg Cap) 75 mg PO HS [facility] Stop: 01/09/20 20:59 Last Admin: 10/13/20 21:39 Dose: 75 mg Documented by: Ondansetron HCl (Ondansetron Inj 2 Mg/Ml 2 Ml Vial) 4 mg IV Q6H PRN PRN Reason: Nausea Stop: 01/09/20 18:48 Pantoprazole Sodium (Pantoprazole 40 Mg Tab) 40 mg PO DAILY [facility] Stop: 01/10/20 08:59 Last Admin: 12/18/19 08:12 Dose: 40 mg Documented by: Polyethylene Glycol (Polyethylene (Miralax) 17 Gm Pack) 17 gm PO DAILY PRN PRN Reason: Constipation Stop: 01/09/20 18:48 Potassium Chloride (Potassium Chloride 20 Meq Tabcr) 20 meq PO Q4 [facility] Stop: 12/18/19 16:01 Last Admin: 12/18/19 12:15 Dose: 20 meq Documented by: Thiamine HCl (Thiamine Hcl 100 Mg Tab) 100 mg PO QAM [facility] Stop: 01/18/20 08:59
[2019-12-18] MEDS: amLODIPine BESYLATE 5 MG TAB PO SCH ×2 (17:30→23:03)
[2019-12-18] MEDS ORDERED: ICU ELECTROLYTE REPLACEMENT PROTOCOL SCH (18:00)
[2019-12-18] MEDS ORDERED: diphenhydrAMINE Capsule 25 MG CAP PO ONE (19:19)
[2019-12-18] MEDS: NORTRIPTYLINE HCL 25 MG CAP PO SCH (20:37)
[2019-12-18 20:57] LABS: BUN Creatinine Ratio 6.6 (10-20); Calcium 9.2 mg/dl (8.5-10.1); Creatinine Clr Calc Pharmacy 101.9 ml/min; Est GFR (African American) 97.5; Est GFR (Non-African American) 84.1; Potassium 3.7 mmol/L (3.5-5.1)
[2019-12-18] MEDS: ICU ELECTROLYTE REPLACEMENT PROTOCOL SCH (21:36)
[2019-12-18] MEDS ORDERED: POTASSIUM CHLORIDE CRTAB 20 MEQ TABCR PO STA (21:36)
[2019-12-19 05:09] LABS: Hemoglobin 11.3 g/dL (14.0-18.0); Mean Corpuscular Hemoglobin 32.9 pg (25-34); Mean Corpuscular Hgb Conc 33.2 g/dL (32-36); Mean Corpuscular Volume 99.1 fL (80-100); Mean Platelet Volume 11.4 fL (7.4-10.4); Platelet Count 254 K/uL (130-400); RDW Coefficient of Variation 13.4 % (11.5-14.5); RDW Standard Deviation 48.4 fL (36.4-46.3); Red Blood Count 3.43 M/uL (4.7-6.1); White Blood Count 10.27 K/uL (4.8-10.8)
[2019-12-19 05:21] LABS: BUN Creatinine Ratio 6.7 (10-20); Bilirubin Direct 0.2 mg/dl (0-0.2); Calcium 8.8 mg/dl (8.5-10.1); Creatinine Clr Calc Pharmacy 120.5 ml/min; Est GFR (African American) 119.4; Magnesium 1.9 mg/dl (1.8-2.4); Potassium 3.7 mmol/L (3.5-5.1)
[2019-12-19] MEDS: ICU ELECTROLYTE REPLACEMENT PROTOCOL SCH ×2 (05:39→10:25)
[2019-12-19] MEDS: LORazepam 1 MG TAB PO SCH (05:39)
[2019-12-19 05:40] LABS: Bilirubin,Total 0.5 mg/dl (0.2-1); Phosphorus 4.4 mg/dl (2.5-4.9); Total Protein 7.3 gm/dl (6.4-8.2)
[2019-12-19] MEDS ORDERED: POTASSIUM CHLORIDE CRTAB 20 MEQ TABCR PO STA (07:28)
--- NOTE | 2019-12-19 07:34 | Critical Care Progress Note ---
Date of Service December 19, 2019 Assessment & Plan (1) Alcohol withdrawal: Impression: 39-year-old male with a known history of alcohol abuse admitted with seizure-like activity felt to be due to alcohol withdrawal. He is now developed increasing agitation. Attributed to alcohol withdrawal/delirium tremens. Possible the patient may have had some mild concussion also contributing when he fell and hit his head. --s/p Metabolic encephalopathy improved significantly since last 48 hours Secondary to alcohol withdrawal Continue with alcohol withdrawal protocol Keep RASS -1 Replace electrolytes as needed. Aspiration precautions -- UTI UA 12/14/2019 growing enterococcus greater than 100,000 --> on antibiotic Chest x-ray shows signs of pulmonary edema but no signs of clear infiltrate --Transaminitis Could be from chronic alcohol use Trending down Monitor --Macrocytic anemia Likely from chronic alcohol use Monitor H&H Continue with thiamine and folic acid --Hypertension Norvasc added -- Phlebitis of the RUE will apply ice pack --Prophylaxis VTE: Lovenox GI: Pantoprazole Lines: Peripheral Diet: Regular Plan: In/out: +40, urine output 1302 Patient has UTI with enterococcus pansensitive. Patient was started on Amoxicillin. He seemed to have developed a rash, it was chaged to Levofloxacin. Patient is on Nortrytyline at home. Keep an eye on QTc. Precedex off since yesterday late morning. Patient got only total of 5 mg of PO ativan. Will DC scheduled ativan and use only PRN ativan. Patient is still having high blood pressure with systolic going up to 170s. Norvasc was added yesterday 5 mg. We will increase it to 10 mg. We will also resume his hydrochlorothiazide. Patient is hemodynamically stable to be sent to a medical floor. Please note the above document was generated using voice recognition software. It may contain grammatical, syntax or spelling errors. (2) Elevated LFTs: (3) Seizure-like activity: (4) DTs (delirium tremens): Admission and Anticipated Discharge Date Admission Date: December 10, 2019 Subjective Patient seen and examined at bedside. No acute distress, no adverse events overnight. He has been off Precedex since yesterday late morning. Patient denies any chest pain, no shortness of breath, no headache, no nausea or vomiting. Able to tolerate diet. Having bowel movements. The frequency of diarrhea has gone down. Denies any belly pain. Overnight patient got a rash on the right extremity as well as chest the likely cause was possibly amoxicillin and it was discontinued. Review of Systems Review of Systems: All systems reviewed & are unremarkable except as noted in Subjective Physical Exam Physical Exam: Constitutional: No acute distress HEENT: EOMI, PERRLA Respiratory system: Good air entry bilaterally, no wheeze, no rhonchi, mild cr ackles bilateral lower lobes CVS: S1-S2 positive, no murmurs or gallops Abdomen: Soft, nontender, nondistended, positive bowel sounds x4 Extremities: +2 pulses bilaterally radialis/ dorsalis pedis, no cyanosis, no edema, thrombophlebitis of the right arm medial aspect Neuro: Awake alert oriented x3 Psych: Normal mood and affect G/U: No Dixon Skin: no rashes, warm and dry Lymphatic: no cervical or axillary lymphadenopathy Results & Data Results & Data ([facility]) Vital Signs (Past 12 Hours) Vital Signs Pulse Resp BP Pulse Ox 12/18/19 22:22 98 H 12/18/19 21:07 91 H 26 H 172/85 H 12/18/19 21:00 100 H 24 12/18/19 20:07 170/113 H 99 12/18/19 20:00 113 H 99 12/19/19 04:37 12/19/19 04:37 Coding Level of Care Code 18866 Subseq Hosp Care Lvl 3 Diagnoses Alcohol withdrawal F10.239 Elevated LFTs R79.89 Seizure-like activity R56.9 DTs (delirium tremens) F10.231
[2019-12-19] MEDS: PANTOprazole 40 MG TAB PO SCH (08:05)
[2019-12-19] MEDS: amLODIPine BESYLATE 5 MG TAB PO SCH ×2 (08:05→10:50)
[2019-12-19] MEDS: hydroCHLOROthiazide 25 MG TAB PO SCH ×2 (08:05→10:26)
[2019-12-19] MEDS: THIAMINE HCL 100 MG TAB PO SCH (08:05)
[2019-12-19] MEDS: CYANOCOBALAMIN 500 MCG TABLET (VITAMIN B-12) PO SCH (08:05)
[2019-12-19] MEDS: FOLIC ACID 1 MG TAB PO SCH (08:05)
[2019-12-19] MEDS: LOSARTAN POTASSIUM 50 MG TAB PO SCH (08:06)
[2019-12-19] MEDS: ENOXAPARIN INJ 40 MG/0.4 ML SYR SQ SCH (08:06)
[2019-12-19] MEDS: NEOMYCIN/POLYMYX/BACITR OINT 15 GM TUBE EXT SCH ×2 (08:07→20:44)
[2019-12-19] MEDS: INSULIN ASPART 100 UNITS/ML 3 ML PEN SC SCH ×2 (08:10→12:40)
[2019-12-19] MEDS ORDERED: amLODIPine BESYLATE 5 MG TAB PO SCH (09:00)
[2019-12-19] MEDS ORDERED: LORazepam 2 MG/4 ML VIAL IV PRN (10:27)
[2019-12-19] MEDS: levoFLOXacin 250 MG TABLET PO SCH (10:47)
[2019-12-19] MEDS ORDERED: chlordiazePOXIDE HCl 5 MG CAP PO PRN (11:16)
--- NOTE | 2019-12-19 13:25 | Hospitalist Progress Note ---
Date of Service December 19, 2019 Assessment & Plan (1) Alcohol withdrawal: Admitted through the ER with seizure-like activity likely secondary to alcohol withdrawal/alcoholism Transferred to ICU due to severe withdrawal symptoms and remained in ICU as of todayThere is 12/18/2019 Received Banana Bag x 1 on admission Daily thiamine and folic acid Received intravenous Precedex, IV Ativan and Geodon as needed in ICU Seizure precautions Appreciate pictures editor input and recommendation Has been on intravenous Ativan for withdrawal symptoms now Clinically much better and will start PT and OT Will need alcohol rehab He will be transferred to medical floor with continuation of PT and OT He was prescribed very small dose of Librium as needed for withdrawal symptoms (2) Seizure-like activity: This is a 39-year-old male who has significant past medical history of HTN, HLD, GERD, prediabetes who presents to ED after sustaining seizure-like activity prior to arrival. Seizure like activity 2/2 alcohol withdrawal, and in the setting of electrolyte abnormalities No prior hx of seizure in past No more episodes while in the hospital admitted to PCU initially, currently in ICU, on Precedex, IV Ativan, also required Geodon started keppra 500mg bid by admitting provider, discussed with neurology, Keppra discontinued as seizure seems to be secondary to alcohol withdrawal EEG ordered - unremarkable Neurology consulted - appreciate their input Patient will not be able to drive for 6 months, patient aware, paperwork to DMV submitted (3) Hypomagnesemia: And other electrolytes abnormalities have been replaced (4) Elevated LFTs: likely in setting of ETOH use, prior elevated lfts in outpt lab last US abd 04/2017 revealed mild hepatomegaly with diffuse increased echogenicity of liver hold statin, obtain US of abd RUQ Ultrasound showed some sludge and polyp in gallbladder, recommend to follow-up after his active alcohol withdrawal LFTs trending down (5) Prediabetes: Pt with hyperglycemia, BSG 249 on admission Last A1c 6.2 12/12/2018 Obtained Hgb A1c 6.3% Accu-Cheks, NovoLog per protocol (6) HTN (hypertension): BP elevated in setting of withdrawal continue losartan but hold HCTZ monitor (7) UTI (urinary tract infection): Has had fever in ICU Received intravenous Zosyn and vancomycin and those were changed to oral ampicillin Urine culture grew Enterococcus faecalis and is pansensitive Has been getting oral ampicillin-developed minor rash and ampicillin has been discontinued Has been getting Levaquin and will continue for 5 to 7 days DVT prophylaxis Subcu Lovenox (8) Hyperlipidemia: hold statin in setting of elevated LFTS Full Code Disposition: ICU Follow up: PCP Dr. Langford upon discharge Social service for discharge planning Admission and Anticipated Discharge Date Admission Date: December 10, 2019 Subjective 12/18/2019 The patient was seen and examined in ICU He has been feeling a lot better and denies any palpitation and/or tremor He complains today of some pain in the left ankle 12/19/2019 The patient was seen and examined in ICU He has been feeling a lot better and is requiring very minimal dose of Ativan as needed Denies any significant symptoms today He will be transferred to medical floor for continuation of care Review of Systems Review of Systems: All systems reviewed and are unremarkable except as noted below Cardiovascular: no palpitations Neurologic: no tremor(s) and no confusion Physical Exam Physical Exam: Lying in bed comfortably Constitutional: well developed and well nourished; no acute distress and not ill appearing Eyes: PERRL, conjunctivae normal, anicteric sclerae ENMT: external ear and nose normal, oropharynx normal Neck: trachea midline, no thyromegaly Respiratory: normal respiratory effort; no respiratory distress Auscultation: lungs clear to auscultation bilaterally Cardiovascular: Rate/Rhythm: regular rate and regular rhythm Heart Sounds: no murmur Gastrointestinal (Abdomen): Inspection/Auscultation: abdomen normal to inspection and normal bowel sounds Percussion/Palpation: abdomen soft; abdomen nontender Musculoskeletal: No acute arthritis involving any joint Neurologic: moves all extremities; no focal motor deficits Motor/Sensory: + tremor (No significant tremors involving the outstretched hands) Psychiatric: A+Ox3, euthymic affect Lymphatic: no cervical or axillary lymphadenopathy Results & Data Results & Data ([facility]) Vital Signs (Past 12 Hours) Vital Signs Temp Pulse Pulse Resp BP BP Pulse Ox 12/19/19 13:00 37.0 C 88 16 157/112 H 95 12/19/19 10:48 104 H 141/84 H 12/19/19 10:39 103 H 134/112 H 12/19/19 09:09 107 H 18 147/88 H 12/19/19 08:15 37.4 C 112 H 13 122/68 98 12/19/19 08:00 86 12/19/19 07:07 84 16 163/85 H 12/19/19 06:07 162/96 H 95 12/19/19 05:07 147/78 H 93 12/19/19 04:07 82 149/88 H 96 12/19/19 03:07 88 152/81 H 95 12/19/19 02:07 88 139/87 94 Laboratory Results Short CBC 12/19/19 Range/Units 04:37 WBC 10.27 (4.8-10.8) K/uL Hgb 11.3 L (14.0-18.0) g/dL Hct 34.0 L (42-52) % Plt Count 254 (130-400) K/uL BMP 12/18/19 12/19/19 20:24 04:37 Sodium 138 141 Potassium 3.7 D 3.7 Chloride 107 110 H Carbon Dioxide 24 26 BUN 7 6 L Creatinine 1.10 0.93 Glucose 115 H 105 H Calcium 9.2 8.8 Liver Function 12/19/19 Range/Units 04:37 Total Bilirubin 0.5 (0.2-1) mg/dl Direct Bilirubin 0.2 (0-0.2) mg/dl AST 97 H (15-37) U/L ALT 90 H (12-78) U/L Alkaline Phosphatase 128 H (45-117) U/L Albumin 3.0 L (3.4-5.0) gm/dl Medications Administered Current Inpatient Medications Acetaminophen (Acetaminophen 325 Mg Supp) 325 mg [place] Q4H PRN PRN Reason: Fever Stop: 01/12/20 23:57 Last Admin: 12/14/19 13:11 Dose: 325 mg Documented by: Al Hydrox/Mg Hydrox/Simethicone (Aluminum/Magnesium Susp 30 Ml Udc) 15 ml PO Q4H PRN PRN Reason: Dyspepsia Stop: 01/09/20 18:48 Amlodipine Besylate (Amlodipine Besylate 5 Mg Tab) [facility] Stop: 01/19/20 08:59 Chlordiazepoxide HCl (Chlordiazepoxide Hcl 5 Mg Cap) 5 mg PO Q4H PRN PRN Reason: Anxiety Stop: 01/18/20 11:15 Cyanocobalamin (Cyanocobalamin 500 Mcg Tablet (Vitamin B-12)) 1,000 mcg PO QAM MARIOLA Stop: 01/11/20 08:59 Last Admin: 12/19/19 08:05 Dose: 1,000 mcg Documented by: Enoxaparin Sodium (Enoxaparin Inj 40 Mg/0.4 Ml Syr) 40 mg SQ DAILY MAR[facility]OLA Stop: 01/11/20 08:59 Last Admin: 12/19/19 08:06 Dose: 40 mg Documented by: Folic Acid (Folic Acid 1 Mg Tab) 1 mg PO QAM MARIOLA Stop: 01/09/20 19:59 Last Admin: 12/19/19 08:05 Dose: 1 mg Documented by: Ketorolac Tromethamine (Ketorolac Tromethamine 15 Mg/Ml Vial) 15 mg IV Q6H PRN PRN Reason: Fever Stop: 12/19/19 17:20 Last Admin: 12/15/19 15:07 Dose: 15 mg Documented by: Levofloxacin (Levofloxacin 250 Mg Tablet) 250 mg PO DAILY@1100 [facility] Stop: 12/26/19 11:01 Last Admin: 12/19/19 10:47 Dose: 250 mg Documented by: Losartan Potassium (Losartan Potassium 50 Mg Tab) 100 mg PO QAM MARIOLA Stop: 01/10/20 08:59 Last Admin: 12/19/19 08:06 Dose: 100 mg Documented by: Magnesium Hydroxide (Magnesium Hydroxide Susp 30 Ml Udc) 30 ml PO Q12H PRN PRN Reason: Constipation Stop: 01/09/20 18:48 Neomycin/Polymyxin/Bacitracin (Neomycin/Polymyx/Bacitr Oint 15 Gm Tube) 1 appln EXT BID MAR[facility]OLA Stop: 01/09/20 20:59 Last Admin: 12/19/19 08:07 Dose: 1 appln Documented by: Nortriptyline HCl (Nortriptyline Hcl 25 Mg Cap) 75 mg PO HS MAR[facility]OLA Stop: 01/09/20 20:59 Last Admin: 12/18/19 20:37 Dose: 75 mg Documented by: Ondansetron HCl (Ondansetron Inj 2 Mg/Ml 2 Ml Vial) 4 mg IV Q6H PRN PRN Reason: Nausea Stop: 01/09/20 18:48 Pantoprazole Sodium (Pantoprazole 40 Mg Tab) 40 mg PO DAILY [facility] Stop: 01/10/20 08:59 Last Admin: 12/19/19 08:05 Dose: 40 mg Documented by: Polyethylene Glycol (Polyethylene (Miralax) 17 Gm Pack) 17 gm PO DAILY PRN PRN Reason: Constipation Stop: 01/09/20 18:48 Thiamine HCl (Thiamine Hcl 100 Mg Tab) 100 mg PO [facility] Stop: 01/18/20 08:59 Last Admin: 12/19/19 08:05 Dose: 100 mg Documented by:
[2019-12-19] MEDS: NORTRIPTYLINE HCL 25 MG CAP PO SCH (20:42)
[2019-12-20] MEDS: THIAMINE HCL 100 MG TAB PO SCH (08:22)
[2019-12-20] MEDS: FOLIC ACID 1 MG TAB PO SCH (08:22)
[2019-12-20] MEDS: CYANOCOBALAMIN 500 MCG TABLET (VITAMIN B-12) PO SCH (08:22)
[2019-12-20] MEDS: PANTOprazole 40 MG TAB PO SCH (08:22)
[2019-12-20] MEDS: LOSARTAN POTASSIUM 50 MG TAB PO SCH (08:23)
[2019-12-20] MEDS: ENOXAPARIN INJ 40 MG/0.4 ML SYR SQ SCH (08:24)
[2019-12-20] MEDS: NEOMYCIN/POLYMYX/BACITR OINT 15 GM TUBE EXT SCH (08:25)
[2019-12-20] MEDS ORDERED: amLODIPine BESYLATE 5 MG TAB PO SCH (09:00)
[2019-12-20] MEDS: levoFLOXacin 250 MG TABLET PO SCH (11:10)
--- NOTE | 2019-12-20 12:33 | Hospitalist Progress Note ---
Date of Service December 20, 2019 Assessment & Plan (1) Alcohol withdrawal: Admitted through the ER with seizure-like activity likely secondary to alcohol withdrawal/alcoholism Transferred to ICU due to severe withdrawal symptoms and remained in ICU as of todayThere is 12/18/2019 Received Banana Bag x 1 on admission Daily thiamine and folic acid Received intravenous Precedex, IV Ativan and Geodon as needed in ICU Seizure precautions Appreciate primer boxer input and recommendation Has been on intravenous Ativan for withdrawal symptoms now Clinically much better and will start PT and OT Will need alcohol rehab-refused to go to inpatient rehab. 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 Seizure like activity 2/2 alcohol withdrawal, and in the setting of electrolyte abnormalities No prior hx of seizure in past No more episodes while in the hospital admitted to PCU initially, currently in ICU, on Precedex, IV Ativan, also required Geodon started keppra 500mg bid by admitting provider, discussed with neurology, Keppra discontinued as seizure seems to be secondary to alcohol withdrawal EEG ordered - unremarkable Neurology consulted - appreciate their input Patient will not be able to drive for 6 months, patient aware, paperwork to DMV submitted (3) Hypomagnesemia: And other electrolytes abnormalities have been replaced (4) Elevated LFTs: likely in setting of ETOH use, prior elevated lfts in outpt lab last US abd 04/2017 revealed mild hepatomegaly with diffuse increased echogenicity of liver hold statin, obtain US of abd RUQ Ultrasound showed some sludge and polyp in gallbladder, recommend to follow-up after his active alcohol withdrawal LFTs -remains moderately elevated but is down since admission (5) Prediabetes: Pt with hyperglycemia, BSG 249 on admission Last A1c 6.2 12/12/2018 Obtained Hgb A1c 6.3% Accu-Cheks, NovoLog per protocol (6) HTN (hypertension): BP elevated in setting of withdrawal continue losartan but hold HCTZ monitor-BP is controlled (7) UTI (urinary tract infection): Has had fever in ICU Received intravenous Zosyn and vancomycin and those were changed to oral ampicillin Urine culture grew Enterococcus faecalis and is pansensitive Has been getting oral ampicillin-developed minor rash and ampicillin has been discontinued Has been getting Levaquin and will continue for 5 to 7 days DVT prophylaxis Subcu Lovenox (8) Hyperlipidemia: hold statin in setting of elevated LFTS Full Code Disposition: ICU Follow up: PCP Dr. Langford upon discharge Social service for discharge planning Will be discharged home this afternoon Admission and Anticipated Discharge Date Admission Date: December 10, 2019 Subjective 12/18/2019 The patient was seen and examined in ICU He has been feeling a lot better and denies any palpitation and/or tremor He complains today of some pain in the left ankle 12/19/2019 The patient was seen and examined in ICU He has been feeling a lot better and is requiring very minimal dose of Ativan as needed Denies any significant symptoms today He will be transferred to medical floor for continuation of care 12/20/2019 The patient was seen and examined in medical telemetry unit He has been feeling a lot better and denies any tremor, palpitation or unsteady gait He is not requiring any more one-to-one sitter He was seen by the physical therapist and recommended that he can go home Review of Systems Review of Systems: All systems reviewed and are unremarkable except as noted below Neurologic: + unsteadiness (Minimal unsteady gait); no tremor(s), no dizziness and no confusion Physical Exam Physical Exam: Lying in bed comfortably Constitutional: well developed and well nourished; no acute distress and not ill appearing Eyes: PERRL, conjunctivae normal, anicteric sclerae ENMT: external ear and nose normal, oropharynx normal Neck: trachea midline, no thyromegaly Respiratory: normal respiratory effort; no respiratory distress Auscultation: lungs clear to auscultation bilaterally Cardiovascular: Rate/Rhythm: regular rate and regular rhythm Heart Sounds: no murmur Gastrointestinal (Abdomen): Inspection/Auscultation: abdomen normal to inspection and normal bowel sounds Percussion/Palpation: abdomen soft; abdomen nontender Musculoskeletal: No acute arthritis in any joint Neurologic: moves all extremities; no focal motor deficits Motor/Sensory: no tremor (No significant tremors involving the outstretched hands) Minimal unsteadiness in gait Psychiatric: A+Ox3, euthymic affect Lymphatic: no cervical or axillary lymphadenopathy Results & Data Results & Data ([facility]) Vital Signs (Past 12 Hours) Vital Signs Temp Pulse Pulse Pulse Resp BP BP 12/20/19 12:00 37.4 C 91 H 18 109/62 12/20/19 07:22 37 C 80 18 125/80 12/20/19 07:21 75 12/20/19 04:00 37.0 C 68 16 146/79 H 12/20/19 02:25 110 H Pulse Ox 12/20/19 12:00 96 12/20/19 07:22 98 12/20/19 07:21 12/20/19 04:00 96 12/20/19 02:25 Medications Administered Current Inpatient Medications Acetaminophen (Acetaminophen 325 Mg Supp) 325 mg HI Q4H PRN PRN Reason: Fever Stop: 01/12/20 23:57 Last Admin: 12/14/19 13:11 Dose: 325 mg Documented by: Al Hydrox/Mg Hydrox/Simethicone (Aluminum/Magnesium Susp 30 Ml Udc) 15 ml PO Q4H PRN PRN Reason: Dyspepsia Stop: 01/09/20 18:48 Amlodipine Besylate (Amlodipine Besylate 5 Mg Tab) 5 mg PO [facility] Stop: 01/19/20 08:59 Last Admin: 12/20/19 08:22 Dose: 5 mg Documented by: Chlordiazepoxide HCl (Chlordiazepoxide Hcl 5 Mg Cap) 5 mg PO Q4H PRN PRN Reason: Anxiety Stop: 01/18/20 11:15 Cyanocobalamin (Cyanocobalamin 500 Mcg Tablet (Vitamin B-12)) 1,000 mcg PO [facility] Stop: 01/11/20 08:59 Last Admin: 12/20/19 08:22 Dose: 1,000 mcg Documented by: Enoxaparin Sodium (Enoxaparin Inj 40 Mg/0.4 Ml Syr) 40 mg SQ DAILY [facility] Stop: 01/11/20 08:59 Last Admin: 12/20/19 08:24 Dose: 40 mg Documented by: Folic Acid (Folic Acid 1 Mg Tab) 1 mg PO QAM [facility] Stop: 01/09/20 19:59 Last Admin: 12/20/19 08:22 Dose: 1 mg Documented by: Levofloxacin (Levofloxacin 250 Mg Tablet) 250 mg PO DAILY@1100 [facility] Stop: 12/26/19 11:01 Last Admin: 12/20/19 11:10 Dose: 250 mg Documented by: Losartan Potassium (Losartan Potassium 50 Mg Tab) 100 mg PO QAM [facility] Stop: 01/10/20 08:59 Last Admin: 12/20/19 08:23 Dose: 100 mg Documented by: Magnesium Hydroxide (Magnesium Hydroxide Susp 30 Ml Udc) 30 ml PO Q12H PRN PRN Reason: Constipation Stop: 01/09/20 18:48 Neomycin/Polymyxin/Bacitracin (Neomycin/Polymyx/Bacitr Oint 15 Gm Tube) 1 appln EXT BID [facility] Stop: 01/09/20 20:59 Last Admin: 12/20/19 08:25 Dose: 1 appln Documented by: Nortriptyline HCl (Nortriptyline Hcl 25 Mg Cap) 75 mg PO HS [facility] Stop: 01/09/20 20:59 Last Admin: 12/19/19 20:42 Dose: 75 mg Documented by: Ondansetron HCl (Ondansetron Inj 2 Mg/Ml 2 Ml Vial) 4 mg IV Q6H PRN PRN Reason: Nausea Stop: 01/09/20 18:48 Pantoprazole Sodium (Pantoprazole 40 Mg Tab) 40 mg PO DAILY [facility] Stop: 01/10/20 08:59 Last Admin: 12/20/19 08:22 Dose: 40 mg Documented by: Polyethylene Glycol (Polyethylene (Miralax) 17 Gm Pack) 17 gm PO DAILY PRN PRN Reason: Constipation Stop: 01/09/20 18:48 Thiamine HCl (Thiamine Hcl 100 Mg Tab) 100 mg PO QAM [facility] Stop: 01/18/20 08:59 Last Admin: 12/20/19 08:22 Dose: 100 mg Documented by:
--- NOTE | 2019-12-21 08:38 | Discharge Summary ---
Date of Service December 21, 2019 Admission HPI Per Admitting Provider This is a 39-year-old male who has significant past medical history of HTN, HLD, GERD, prediabetes who presents to ED after sustaining seizure-like activity prior to arrival. Of note he has no prior history of seizure disorder. is at bedside. Patient was at work whenever he fell to the floor and hit his head. Numerous witnesses per patient state they observed seizure-like activity lasting a few minutes. He does admit to biting his tongue but denies any loss of bowel or bladder control. He states he did not eat or drink anything mostly all day, and when he woke up this morning generally did not feel well and lightheaded. He denies any recent illness, fever, chills, sweats, dizziness, chest pain, shortness of breath, cough, emesis, abdominal pain, dysuria, increased urgency or frequency with urination. He does admit to having diaphoresis, palpitations and tremors. He does admit to drinking alcohol daily. He admits to drinking approximately a case a week of light beer. He does note if he goes a few days without beer he does tend to get tremors and ill feeling, but has never had seizure activity. In ED patient was hypertensive and tachycardic, but otherwise hemodynamically stable. Lab work notable for H&H 12.6 and 36.8, WBC 5.82, platelet 134, BUN 6, creatinine 1.07, glucose 249, mag 1.3, AST 267, ALT 227, prolactin 13.85, ethyl alcohol less than 3. He did suffer an abrasion to his forehead and did receive a tetanus vaccination. Head and face CT were unremarkable, but did reveal left frontal scalp hematoma. CXR and C spine CT were without acute process. He did receive IV ativan, IVF and 2g magnesium supplementation while in ED. Admission Exam Per Admitting Provider Physical Exam: Constitutional: WD/WN, male, diaphoretic, vitals as above, NAD, sitting up in bed, pleasant, conversing easily Head: Normocephalic, abrasion to left and lateral forehead with erythematous wound bed, no drainage Eyes: PERRL, conjunctivae normal, anicteric sclerae ENMT: external ear and nose normal, oropharynx normal Neck: trachea midline, no thyromegaly normal visual inspection Respiratory: normal respiratory effort, lungs clear to auscultation, no wheeze, rales, rhonchi. Normal insp/exp effort, no accessory muscle use Cardiovascular: Tachycardic rate, regular rhythm, no murmur, no edema Vessels: no JVD or carotid bruit Chest: normal inspection of chest Abdomen: Protuberant abdomen, normal bowel sounds, firm, nontender, no hepatosplenomegaly Musculoskeletal: no cyanosis or clubbing, extremities motor strength 5/5 Skin: no rashes, warm and dry normal turgor Neurologic: Tremulous, no asterixis, PERRL, EOMI, accommodation nl, no face palsy, no dysarthria CN's II-XI intact bilaterally and moves all extremities Psychiatric: A+Ox3, euthymic affect Lymphatic: no cervical or axillary lymphadenopathy : deferred Principal Diagnosis Alcohol withdrawal, seizures likely secondary to alcoholism/withdrawal, hypertension, UTI Discharge Exam Constitutional well developed and well nourished; no acute distress and not ill appearing Eyes PERRL, conjunctivae normal, anicteric sclerae ENMT external ear and nose normal, oropharynx normal Neck trachea midline, no thyromegaly Respiratory normal respiratory effort; no respiratory distress Auscultation: lungs clear to auscultation bilaterally Cardiovascular Rate/Rhythm: regular rate and regular rhythm Heart Sounds: no murmur Gastrointestinal (Abdomen) Inspection/Auscultation: abdomen normal to inspection and normal bowel sounds Percussion/Palpation: abdomen soft; abdomen nontender Neurologic moves all extremities; no focal motor deficits Motor/Sensory: no tremor (No significant tremors involving the outstretched hands) Psychiatric A+Ox3, euthymic affect Lymphatic no cervical or axillary lymphadenopathy Discharge Data Allergies Allergy/AdvReac Type Severity Reaction Status Date / Time No Known Allergies Allergy Verified 12/19/19 10:29 Consultations 12/10/19 15:58 ED Decision to Admit Stat 12/10/19 16:27 Consult Neurology Routine 12/11/19 19:01 Consult Lens Gauger Routine 12/19/19 11:18 Consult Case Management - Discharge Planning Routine Ordered Studies 12/10/19 14:18 CT cervical spine wo con Stat CT facial bones wo con Stat CT head/brain wo con Stat 12/10/19 18:49 US abdomen limited Routine Hospital Course (1) Alcohol withdrawal: Admitted through the ER with seizure-like activity likely secondary to alcohol withdrawal/alcoholism Transferred to ICU due to severe withdrawal symptoms and remained in ICU as of todayThere is 12/18/2019 Received Banana Bag x 1 on admission Daily thiamine and folic acid Received intravenous Precedex, IV Ativan and Geodon as needed in ICU Seizure precautions Appreciate chef under input and recommendation Has been on intravenous Ativan for withdrawal symptoms now Clinically much better and will start PT and OT Will need alcohol rehab-refused to go to inpatient rehab. workers compensation manager has been working on it He has been stable and is ambulating in the hallway and in room without any significant problems He was evaluated by physical therapist and recommended that he can go home (2) Seizure-like activity: This is a 39-year-old male who has significant past medical history of HTN, HLD, GERD, prediabetes who presents to ED after sustaining seizure-like activity prior to arrival. Seizure like activity 2/2 alcohol withdrawal, and in the setting of electrolyte abnormalities No prior hx of seizure in past No more episodes while in the hospital admitted to PCU initially, currently in ICU, on Precedex, IV Ativan, also required Geodon started keppra 500mg bid by admitting provider, discussed with neurology, Keppra discontinued as seizure seems to be secondary to alcohol withdrawal EEG ordered - unremarkable Neurology consulted - appreciate their input Patient will not be able to drive for 6 months, patient aware, paperwork to DMV submitted (3) Hypomagnesemia: And other electrolytes abnormalities have been replaced (4) Elevated LFTs: likely in setting of ETOH use, prior elevated lfts in outpt lab last US abd 04/2017 revealed mild hepatomegaly with diffuse increased echogenicity of liver hold statin, obtain US of abd RUQ Ultrasound showed some sludge and polyp in gallbladder, recommend to follow-up after his active alcohol withdrawal LFTs -remains moderately elevated but is down since admission (5) Prediabetes: Pt with hyperglycemia, BSG 249 on admission Last A1c 6.2 12/12/2018 Obtained Hgb A1c 6.3% Accu-Cheks, NovoLog per protocol (6) HTN (hypertension): BP elevated in setting of withdrawal continue losartan but hold HCTZ monitor-BP is controlled (7) UTI (urinary tract infection): Has had fever in ICU Received intravenous Zosyn and vancomycin and those were changed to oral ampicillin Urine culture grew Enterococcus faecalis and is pansensitive Has been getting oral ampicillin-developed minor rash and ampicillin has been discontinued Has been getting Levaquin and will continue for 5 to 7 days DVT prophylaxis Subcu Lovenox (8) Hyperlipidemia: hold statin in setting of elevated LFTS Full Code Disposition: ICU Follow up: PCP Dr. Langford upon discharge Social service for discharge planning Will be discharged home this afternoon Total Time Total Time Spent Total Time Spent (In Minutes): 35 minutes Total Time Includes: Examination of the Patient, Discharge Planning, Medication Reconciliation and Communication With Other Providers Discharge Plan Discharge Items Patient Disposition: Home - Self-Care Reason For Visit: SEIZURE, HYPOMAGNESEMIA Discharge Diagnosis: Alcohol withdrawal, seizures likely secondary to alcoholism/withdrawal, hypertension, UTI Condition on Discharge: Good Activity: Resume your previous activity Non-emergency contact: Primary Care Provider Call non-emergency contact if: you have any medication questions and your symptoms worsen Follow-up/Referrals: Dano Langford DO [Primary Care Provider] - (Date & Time 12/23/2019 2:00 PM Provider Dano Langford DO [facility] ) Diet: Regular and Low Sodium (2gm) Addtl Attending Provider Instructions: Do not drink anymore alcohol Regular follow-up with alcohol Anonymous group Please do not drive for 6-month as advised by the neurologist. Pending Studies at Discharge: No Stand-Alone Forms: My [facility] [employer], Smoking Cessation Medications and DC Order Prescriptions: New levofloxacin 250 mg Tablet 250 mg PO DAILY@1100 5 Days Qty: 5 RF: 0 amlodipine [Norvasc] 5 mg Tablet 5 mg PO QAM Qty: 30 RF: 0 losartan 50 mg Tablet 100 mg PO QAM 30 Days Qty: 60 RF: 0 chlordiazepoxide HCl 5 mg Capsule 5 mg PO UD Qty: 12 RF: 0 thiamine HCl (vitamin B1) [Vitamin B-1] 100 mg Tablet 100 mg PO QAM 30 Days Qty: 30 RF: 0 cyanocobalamin (vitamin B-12) 500 mcg Tablet 1,000 mcg PO QAM 30 Days Qty: 60 RF: 0 folic acid 1 mg Tablet 1 mg PO QAM 30 Days Qty: 30 RF: 0 Lactinex 1 million cell tablet,chewable 1 tab PO BID Qty: 30 RF: 0 Continued nortriptyline 75 mg Capsule 75 mg PO HS RF: 0 omeprazole 20 mg Tablet,Delayed Release (Dr/Ec) 20 mg PO DAILY RF: 0 Discontinued losartan-hydrochlorothiazide 100-25 mg Tablet 1 tab PO DAILY RF: 0 rosuvastatin [Crestor] 10 mg Tablet 10 mg PO DAILY RF: 0 Discharge Orders: Discharge Order (Routine); Ordered 12/20/19 Ordered By: Mackenzie Jackson/Other Patient Handouts: Prediabetes, Diabetes: Meal Planning, A1C Admission Data Admit Date/Time: 12/10/19 16:27 Attending Provider: Mackenzie Moya Admit Provider: Sarabjit Dial Primary Care Provider: Dano Langford Other Providers: Gary Clark ; Sarabjit Dial ; Holland Anderson ; Lester Bal Other Interventions: Discharge Summary Assessment (RN) Last Done: 12/20/19 13:47
== END 2019-12-20 14:38 | disposition home or self-care (01) | DRG 896 ==
LOC: ED 13:57 → SUATTDRO 16:27 → 2S 16:27 → 1E 12-11 18:22 → 2W 12-19 12:13